=== PATIENT | female | born 1945 | race Caucasian/White ===

== ENCOUNTER 2016-07-04 02:46 | Inpatient (IN) | payer MEDICARE, OTHER ==
[~2016-07-04] VITALS: Ht 157.5 cm; Wt 92.8 kg
[~2016-07-04 02:46] MED LIST: ACLI400A2 INH; ALBU8.5H3 INH; ALBU8.5H5 INH; AMLO10TA2 PO; ASCO-96 PO; ASPI-621 PO; ASPI-650 PO; ATEN-104 PO; ATOR40TA78 PO; AZIT500T PO; AZIT500T77 PO; BIFI4CAP PO; CARV12.543 PO; CEFD300C37 PO; CHOL400C11 PO; CIME200T4 PO; CLOP75TA22 PO; DIAZ5TAB PO; DIPH1TAB PO; FELO5TAB PO; FERR325T20 PO; FLUT1DIS3 INH; FURO-93 PO; IPRA3AMP NPPB; NITR0.4T SL; OXYGEN; OXYGEN INH; PARO10TA3 PO; POTA20TA14 PO; PRED10TA PO; PRED20TA PO; SIMV20TA PO; SIMV40TA PO; TERA2CAP3 PO; VITA400C40 PO
[2016-07-04 03:19] LABS: ASPARTATE AMINO TRANSFERASE 11 U/L (15-37); BLOOD UREA NITROGEN 21 mg/dL (7-18)
[2016-07-04 03:29] LABS: IS PT STATUS REG ER OR PRE ER? YES
[2016-07-04 03:41] LABS: ABG COLLECTION SITE RIGHT BRACHIAL
[2016-07-04] MEDS: PROPOFOL 100 ML IV PRN ×4 (04:17→21:26)
[2016-07-04] MEDS ORDERED: MIDAZOLAM 1 MG/ML, 5ML ONE (04:30)
[2016-07-04] MEDS ORDERED: PROPOFOL 10 MG/ML, 20ML ONE (04:30)
[2016-07-04] MEDS ORDERED: ETOMIDATE 40 MG/20 ML ONE (04:30)
[2016-07-04] MEDS ORDERED: MIDAZOLAM 1 MG/ML, 5ML IVPush ONE (04:30)
[2016-07-04] MEDS ORDERED: SUCCINYLCHOLINE 20 MG/ML, 10ML ONE (04:30)
[2016-07-04] MEDS ORDERED: VECURONIUM 10 MG ONE (04:30)
[2016-07-04] MEDS ORDERED: ONDANSETRON 2MG/ML, 2ML IVPush PRN ×2 (04:30→05:30)
[2016-07-04] MEDS ORDERED: PROPOFOL 100 ML IV PRN (04:58)
[2016-07-04] MEDS ORDERED: DEXTROSE 4 GM TAB.CHEW PO PRN (05:00)
[2016-07-04] MEDS ORDERED: LIDOCAINE-MPF 1%, 2ML ENDO PRN (05:00)
[2016-07-04] MEDS ORDERED: SENNA/DOCUSATE TABLET NG PRN (05:00)
[2016-07-04] MEDS ORDERED: PHARMACY MAY ADJ FOR RENAL FX MC SCH (05:00)
[2016-07-04] MEDS: ALBUTEROL/IPRATROPIUM 2.5MG/0.5MG, 3 ML INLINE SCH ×5 (05:00→21:00)
[2016-07-04] MEDS: FAMOTIDINE 20 MG/2 ML IV SCH ×2 (05:00→17:25)
[2016-07-04] MEDS ORDERED: GLUCAGON 1 MG IM PRN (05:00)
[2016-07-04] MEDS ORDERED: DEXTROSE 50%, 50ML SYRINGE IVPush PRN (05:00)
[2016-07-04] MEDS ORDERED: ENOXAPARIN 40 MG/0.4 ML SQ SCH (05:00)
[2016-07-04] MEDS ORDERED: SENNOSIDES 8.8 MG/5 ML ORAL SOL NG PRN (05:00)
[2016-07-04] MEDS ORDERED: FENTANYL PF 100 MCG/2ML IVPush PRN (05:00)
[2016-07-04] MEDS ORDERED: LACTULOSE 20 GM/30 ML UDC NG PRN (05:00)
[2016-07-04] MEDS ORDERED: BISACODYL 10 MG SUPP PR PRN ×2 (05:00→05:30)
[2016-07-04] MEDS: HEPARIN 5,000 UNITS/ML, 1ML SQ SCH ×3 (05:30→20:34)
[2016-07-04] MEDS ORDERED: OXYcodone IR 5MG TABLET PO PRN (05:30)
[2016-07-04] MEDS ORDERED: morphine SULFATE 10 MG/ML, 1ML IVPush PRN (05:30)
[2016-07-04] MEDS ORDERED: ACETAMINOPHEN 325 MG TABLET PO PRN (05:30)
[2016-07-04] MEDS ORDERED: hydrALAzine 20 MG/ML, 1ML IVPush PRN (05:30)
[2016-07-04] MEDS: methylPREDNISolone SOD SUCC 125 MG/2 ML IVPush SCH ×4 (05:30→23:38)
[2016-07-04] MEDS ORDERED: POLYETHYLENE GLYCOL 17 GM PACKET PO PRN (05:30)
[2016-07-04] MEDS ORDERED: DOCUSATE 100 MG CAPSULE PO PRN (05:30)
[2016-07-04] MEDS ORDERED: methylPREDNISolone SOD SUCC 125 MG/2 ML ONE (05:36)
[2016-07-04] MEDS ORDERED: ENOXAPARIN 40 MG/0.4 ML ONE (05:36)
[2016-07-04] MEDS ORDERED: HEPARIN 5,000 UNITS/ML, 1ML ONE (05:36)
[2016-07-04] MEDS ORDERED: FAMOTIDINE 20 MG/2 ML ONE (05:37)
[2016-07-04] MEDS ORDERED: hydrALAzine 20 MG/ML, 1ML ONE (06:17)
[2016-07-04] MEDS ORDERED: PROPOFOL 100 ML IV ONE (06:25)
[2016-07-04] MEDS ORDERED: ALBUTEROL/IPRATROPIUM 2.5MG/0.5MG, 3 ML ONE (06:28)
[2016-07-04] MEDS: INSULIN ASPART 100 UNITS/ML, PEN SQ-INSULIN SCH ×4 (08:37→20:34)
[2016-07-04] MEDS: hydrALAzine 20 MG/ML, 1ML IV PRN ×2 (08:37→12:10)
[2016-07-04] MEDS: FUROSEMIDE 20 MG/2 ML IV SCH (08:37)
[2016-07-04] MEDS: SODIUM CHLORIDE FLUSH 10ML SYR IVF SCH ×2 (08:38→20:34)
[2016-07-04] MEDS: CLOPIDOGREL 75 MG TABLET PO SCH (08:47)
[2016-07-04] MEDS: TERAZOSIN 2MG CAPSULE PO SCH (08:47)
[2016-07-04] MEDS: CARVEDILOL 12.5 MG TABLET PO SCH ×2 (08:47→17:25)
[2016-07-04] MEDS: FERROUS SULFATE 325 MG TABLET PO SCH ×2 (08:47→20:34)
[2016-07-04] MEDS: AMLODIPINE 5 MG TABLET PO SCH (08:47)
[2016-07-04] MEDS ORDERED: FAMOTIDINE 20 MG/2 ML IVPush SCH (09:00)
[2016-07-04] MEDS ORDERED: LABETALOL 5MG/ML, 20ML IVPush PRN (09:30)
[2016-07-04] MEDS: CHOLECALCIFEROL 400 UNITS TABLET PO SCH (11:04)
[2016-07-04] MEDS ORDERED: CARVEDILOL 12.5 MG TABLET PO SCH (18:00)
[2016-07-04] MEDS: ATORVASTATIN 40 MG TABLET PO SCH (20:34)
[2016-07-05] MEDS: ALBUTEROL/IPRATROPIUM 2.5MG/0.5MG, 3 ML INLINE SCH ×6 (01:00→22:00)
[2016-07-05] MEDS: PROPOFOL 100 ML IV PRN ×2 (01:23→05:41)
[2016-07-05 04:24] VITALS: BP 162/78
[2016-07-05 04:28] LABS: ABG COLLECTION SITE RIGHT RADIAL; COLLATERAL CIRCULATION TESTING NORMAL
[2016-07-05 04:41] LABS: ASPARTATE AMINO TRANSFERASE 17 U/L (15-37); BLOOD UREA NITROGEN 24 mg/dL (7-18)
[2016-07-05] MEDS: methylPREDNISolone SOD SUCC 125 MG/2 ML IVPush SCH ×3 (05:00→16:59)
[2016-07-05] MEDS: FAMOTIDINE 20 MG/2 ML IV SCH (05:00)
[2016-07-05] MEDS: HEPARIN 5,000 UNITS/ML, 1ML SQ SCH ×3 (05:01→20:18)
[2016-07-05] MEDS ORDERED: ASPIRIN 81 MG TABLET EC PO SCH (06:00)
[2016-07-05] MEDS: CARVEDILOL 12.5 MG TABLET PO SCH (06:24)
[2016-07-05 06:30] LABS: DIFF TOTAL CELLS COUNTED 100 CELL DIFF
[2016-07-05 06:45] LABS: ANISOCYTOSIS 2+; HYPOCHROMIA 1+; MICROCYTOSIS 1+
[2016-07-05 06:46] LABS: OVALOCYTES 1+; VERIFY COUNTS? YES
[2016-07-05] MEDS: FUROSEMIDE 20 MG/2 ML IV SCH (07:54)
[2016-07-05] MEDS: AMLODIPINE 5 MG TABLET PO SCH (08:05)
[2016-07-05] MEDS: TERAZOSIN 2MG CAPSULE PO SCH (08:05)
[2016-07-05] MEDS: FERROUS SULFATE 325 MG TABLET PO SCH ×2 (08:05→20:18)
[2016-07-05] MEDS: SODIUM CHLORIDE FLUSH 10ML SYR IVF SCH ×2 (08:06→20:18)
[2016-07-05] MEDS: CLOPIDOGREL 75 MG TABLET PO SCH (08:06)
[2016-07-05] MEDS: CHOLECALCIFEROL 400 UNITS TABLET PO SCH (08:06)
[2016-07-05] MEDS: INSULIN ASPART 100 UNITS/ML, PEN SQ-INSULIN SCH ×4 (08:26→20:17)
[2016-07-05] MEDS ORDERED: ALBUTEROL/IPRATROPIUM 2.5MG/0.5MG, 3 ML NPPB PRN (11:30)
[2016-07-05] MEDS: CARVEDILOL 25 MG TABLET PO SCH (16:59)
[2016-07-05] MEDS: ATORVASTATIN 40 MG TABLET PO SCH (20:18)
[2016-07-05] MEDS: hydrALAzine 20 MG/ML, 1ML IV PRN (21:08)
[2016-07-06] MEDS: methylPREDNISolone SOD SUCC 125 MG/2 ML IVPush SCH ×5 (00:19→22:44)
[2016-07-06] MEDS: ALBUTEROL/IPRATROPIUM 2.5MG/0.5MG, 3 ML INLINE SCH ×2 (02:00→06:00)
[2016-07-06 04:30] VITALS: BP 159/61
[2016-07-06 04:57] LABS: ABG COLLECTION SITE RIGHT RADIAL; COLLATERAL CIRCULATION TESTING NORMAL
[2016-07-06 05:06] LABS: BLOOD UREA NITROGEN 34 mg/dL (7-18)
[2016-07-06] MEDS: ASPIRIN 81 MG TABLET CHEW PO SCH (05:12)
[2016-07-06] MEDS: HEPARIN 5,000 UNITS/ML, 1ML SQ SCH ×3 (05:12→20:51)
[2016-07-06] MEDS: CARVEDILOL 25 MG TABLET PO SCH ×2 (05:12→17:34)
[2016-07-06 05:35] LABS: DIFF TOTAL CELLS COUNTED 100 CELL DIFF
[2016-07-06] MEDS: hydrALAzine 20 MG/ML, 1ML IV PRN (05:38)
[2016-07-06 05:39] LABS: ANISOCYTOSIS 1+; HYPOCHROMIA 1+; POLYCHROMASIA 1+; VERIFY COUNTS? YES
[2016-07-06 05:40] LABS: OVALOCYTES 1+
[2016-07-06] MEDS: INSULIN ASPART 100 UNITS/ML, PEN SQ-INSULIN SCH ×4 (07:00→20:52)
[2016-07-06] MEDS: AMLODIPINE 5 MG TABLET PO SCH (08:57)
[2016-07-06] MEDS: FUROSEMIDE 20 MG/2 ML IV SCH (08:57)
[2016-07-06] MEDS: CHOLECALCIFEROL 400 UNITS TABLET PO SCH (08:57)
[2016-07-06] MEDS: TERAZOSIN 2MG CAPSULE PO SCH (08:57)
[2016-07-06] MEDS: CLOPIDOGREL 75 MG TABLET PO SCH (08:57)
[2016-07-06] MEDS: FERROUS SULFATE 325 MG TABLET PO SCH ×2 (08:57→20:51)
[2016-07-06] MEDS: SODIUM CHLORIDE FLUSH 10ML SYR IVF SCH ×2 (09:05→20:51)
[2016-07-06] MEDS: ALBUTEROL/IPRATROPIUM 2.5MG/0.5MG, 3 ML NPPB SCH ×3 (10:20→20:20)
[2016-07-06] MEDS: WINE PO SCH ×2 (12:27→18:24)
[2016-07-06 12:30] VITALS: BP 179/72
[2016-07-06 20:06] VITALS: BP 159/71
[2016-07-06] MEDS: ATORVASTATIN 40 MG TABLET PO SCH (20:51)
[2016-07-07 01:23] VITALS: BP 164/72
[2016-07-07] MEDS: CARVEDILOL 25 MG TABLET PO SCH ×2 (05:05→16:54)
[2016-07-07] MEDS: ASPIRIN 81 MG TABLET CHEW PO SCH (05:05)
[2016-07-07] MEDS: methylPREDNISolone SOD SUCC 125 MG/2 ML IVPush SCH ×3 (05:06→15:56)
[2016-07-07] MEDS: HEPARIN 5,000 UNITS/ML, 1ML SQ SCH ×3 (05:06→21:42)
[2016-07-07 05:15] LABS: BLOOD UREA NITROGEN 46 mg/dL (7-18)
[2016-07-07 05:43] LABS: DIFF TOTAL CELLS COUNTED 100 CELL DIFF
[2016-07-07 05:46] LABS: ANISOCYTOSIS 1+; VERIFY COUNTS? YES
[2016-07-07 05:47] LABS: OVALOCYTES 1+; POLYCHROMASIA 1+
[2016-07-07] MEDS: INSULIN ASPART 100 UNITS/ML, PEN SQ-INSULIN SCH ×4 (07:00→21:00)
[2016-07-07] MEDS: ALBUTEROL/IPRATROPIUM 2.5MG/0.5MG, 3 ML NPPB SCH ×2 (07:21→19:36)
[2016-07-07 07:35] VITALS: BP 167/71
[2016-07-07] MEDS: WINE PO SCH ×3 (08:00→16:54)
[2016-07-07] MEDS: CHOLECALCIFEROL 400 UNITS TABLET PO SCH (08:54)
[2016-07-07] MEDS: TERAZOSIN 2MG CAPSULE PO SCH (08:54)
[2016-07-07] MEDS: CLOPIDOGREL 75 MG TABLET PO SCH (08:54)
[2016-07-07] MEDS: AMLODIPINE 5 MG TABLET PO SCH (08:54)
[2016-07-07] MEDS: SODIUM CHLORIDE FLUSH 10ML SYR IVF SCH ×2 (08:55→21:41)
[2016-07-07] MEDS: FERROUS SULFATE 325 MG TABLET PO SCH ×2 (08:55→21:43)
[2016-07-07] MEDS: FUROSEMIDE 20 MG/2 ML IV SCH (08:55)
[2016-07-07 09:31] LABS: PATH.CAST-FLAG NOT PRESENT; SPERM-FLAG NOT PRESENT; SRC-FLAG NOT PRESENT; XTAL-FLAG NOT PRESENT; YLC-FLAG NOT PRESENT
[2016-07-07 12:46] VITALS: BP 150/72
[2016-07-07 20:02] VITALS: BP 186/71
[2016-07-07] MEDS: hydrALAzine 20 MG/ML, 1ML IV PRN (21:42)
[2016-07-07] MEDS: ATORVASTATIN 40 MG TABLET PO SCH (21:43)
[2016-07-08] VITALS (12 sets, daily range): BP systolic 159–186; BP diastolic 66–83
[2016-07-08] MEDS: methylPREDNISolone SOD SUCC 125 MG/2 ML IVPush SCH ×4 (00:25→18:20)
[2016-07-08 04:45] LABS: BLOOD UREA NITROGEN 49 mg/dL (7-18)
[2016-07-08 05:09] LABS: DIFF TOTAL CELLS COUNTED 100 CELL DIFF
[2016-07-08 05:12] LABS: ANISOCYTOSIS 1+; HYPOCHROMIA 1+; OVALOCYTES 1+; POLYCHROMASIA 1+; VERIFY COUNTS? YES
[2016-07-08 05:13] LABS: LARGE PLATELETS 1+
[2016-07-08] MEDS: HEPARIN 5,000 UNITS/ML, 1ML SQ SCH ×3 (06:00→21:22)
[2016-07-08] MEDS: CARVEDILOL 25 MG TABLET PO SCH ×2 (06:00→18:20)
[2016-07-08] MEDS: ASPIRIN 81 MG TABLET CHEW PO SCH (06:00)
[2016-07-08] MEDS: INSULIN ASPART 100 UNITS/ML, PEN SQ-INSULIN SCH ×4 (07:34→21:30)
[2016-07-08] MEDS: ALBUTEROL/IPRATROPIUM 2.5MG/0.5MG, 3 ML NPPB SCH ×4 (07:35→20:00)
[2016-07-08] MEDS: FUROSEMIDE 20 MG/2 ML IV SCH (09:34)
[2016-07-08] MEDS: SODIUM CHLORIDE FLUSH 10ML SYR IVF SCH ×2 (09:34→20:33)
[2016-07-08] MEDS: AMLODIPINE 5 MG TABLET PO SCH (09:34)
[2016-07-08] MEDS: FERROUS SULFATE 325 MG TABLET PO SCH ×2 (09:34→21:23)
[2016-07-08] MEDS: CHOLECALCIFEROL 400 UNITS TABLET PO SCH (09:35)
[2016-07-08] MEDS: TERAZOSIN 2MG CAPSULE PO SCH (09:35)
[2016-07-08] MEDS: CLOPIDOGREL 75 MG TABLET PO SCH (09:35)
[2016-07-08] MEDS: LOSARTAN 50MG TABLET PO SCH (11:31)
[2016-07-08] MEDS: WINE PO SCH ×2 (14:21→18:15)
[2016-07-08] MEDS ORDERED: ACETAMINOPHEN 325 MG TABLET PO ONE (15:00)
[2016-07-08] MEDS: hydrALAzine 20 MG/ML, 1ML IV PRN (20:29)
[2016-07-08] MEDS: ATORVASTATIN 40 MG TABLET PO SCH (21:51)
[2016-07-09] VITALS (7 sets, daily range): BP systolic 156–187; BP diastolic 71–77
[2016-07-09] MEDS: methylPREDNISolone SOD SUCC 125 MG/2 ML IVPush SCH ×5 (01:07→21:37)
[2016-07-09] MEDS: SENNA/DOCUSATE TABLET PO SCH ×2 (01:08→09:38)
[2016-07-09] MEDS: hydrALAzine 20 MG/ML, 1ML IV PRN (03:36)
[2016-07-09 05:08] LABS: BLOOD UREA NITROGEN 53 mg/dL (7-18)
[2016-07-09] MEDS: ASPIRIN 81 MG TABLET CHEW PO SCH (06:12)
[2016-07-09] MEDS: CARVEDILOL 25 MG TABLET PO SCH ×2 (06:12→17:22)
[2016-07-09] MEDS: HEPARIN 5,000 UNITS/ML, 1ML SQ SCH ×3 (06:21→21:37)
[2016-07-09] MEDS: INSULIN ASPART 100 UNITS/ML, PEN SQ-INSULIN SCH ×4 (07:00→20:35)
[2016-07-09] MEDS: ALBUTEROL/IPRATROPIUM 2.5MG/0.5MG, 3 ML NPPB SCH ×4 (07:00→18:32)
[2016-07-09] MEDS: SODIUM CHLORIDE FLUSH 10ML SYR IVF SCH ×2 (09:00→21:37)
[2016-07-09] MEDS: LOSARTAN 50MG TABLET PO SCH ×2 (09:36→20:34)
[2016-07-09] MEDS: AMLODIPINE 5 MG TABLET PO SCH (09:37)
[2016-07-09] MEDS: TERAZOSIN 2MG CAPSULE PO SCH (09:37)
[2016-07-09] MEDS: CLOPIDOGREL 75 MG TABLET PO SCH (09:37)
[2016-07-09] MEDS: FERROUS SULFATE 325 MG TABLET PO SCH ×2 (09:38→20:34)
[2016-07-09] MEDS: CHOLECALCIFEROL 400 UNITS TABLET PO SCH (09:38)
[2016-07-09] MEDS: FUROSEMIDE 20 MG/2 ML IV SCH (09:38)
[2016-07-09] MEDS: WINE PO SCH ×2 (11:59→17:22)
[2016-07-09] MEDS ORDERED: MAGNESIUM CITRATE 300ML ORAL SOL PO ONE (17:30)
[2016-07-09] MEDS: ATORVASTATIN 40 MG TABLET PO SCH (20:34)
[2016-07-09 22:35] LABS: OCCBLD OBC PASS
[2016-07-10 01:19] VITALS: BP 168/71
[2016-07-10] MEDS: methylPREDNISolone SOD SUCC 125 MG/2 ML IVPush SCH ×2 (05:36→11:19)
[2016-07-10] MEDS: CARVEDILOL 25 MG TABLET PO SCH (05:36)
[2016-07-10] MEDS: HEPARIN 5,000 UNITS/ML, 1ML SQ SCH ×2 (05:36→13:21)
[2016-07-10] MEDS: ASPIRIN 81 MG TABLET CHEW PO SCH (05:36)
[2016-07-10 05:52] LABS: BLOOD UREA NITROGEN 63 mg/dL (7-18)
[2016-07-10] MEDS: ALBUTEROL/IPRATROPIUM 2.5MG/0.5MG, 3 ML NPPB SCH ×3 (07:00→15:00)
[2016-07-10 07:40] VITALS: BP 165/69
[2016-07-10] MEDS: INSULIN ASPART 100 UNITS/ML, PEN SQ-INSULIN SCH ×2 (08:22→11:23)
[2016-07-10] MEDS: SODIUM CHLORIDE FLUSH 10ML SYR IVF SCH (08:22)
[2016-07-10] MEDS: AMLODIPINE 5 MG TABLET PO SCH (08:22)
[2016-07-10] MEDS: CLOPIDOGREL 75 MG TABLET PO SCH (08:23)
[2016-07-10] MEDS: LOSARTAN 50MG TABLET PO SCH (08:23)
[2016-07-10] MEDS: CHOLECALCIFEROL 400 UNITS TABLET PO SCH (08:23)
[2016-07-10] MEDS: TERAZOSIN 2MG CAPSULE PO SCH (08:23)
[2016-07-10] MEDS: FERROUS SULFATE 325 MG TABLET PO SCH (08:23)
[2016-07-10] MEDS: SENNA/DOCUSATE TABLET PO SCH (08:24)
[2016-07-10] MEDS ORDERED: FUROSEMIDE 20 MG TABLET PO SCH (09:00)
[2016-07-10] MEDS: WINE PO SCH (11:24)
[2016-07-10] MEDS ORDERED: LOSA50TA2 PO (12:08)
[2016-07-10] MEDS ORDERED: IPRA3AMP NPPB (12:08)
[2016-07-10] MEDS ORDERED: CARV25TA12 PO (12:08)
[2016-07-10] MEDS ORDERED: DOCU-30 PO (12:08)
[2016-07-10] MEDS ORDERED: AMLO5TAB2 PO (12:08)
[2016-07-10] MEDS ORDERED: PRED5TAB PO (12:08)
[2016-07-10] MEDS ORDERED: FURO-93 PO (12:08)
[2016-07-10 16:23] VITALS: BP 178/75
[2016-07-10 16:30] VITALS: BP 162/78
== END 2016-07-10 16:01 | disposition home or self-care (01) | DRG 291 ==
LOC: ED 03:01 → EDIP 04:22 → CCU 08:14 → 3NW 07-06 12:45
PROVIDERS: ADMIT Internal Medicine; ATTEND Internal Medicine
PROC: 0T9B70Z Drainage of Bladder with Drainage Device, Via Natural or Artificial Opening (ICD-10-PCS; principal; 2016-07-04)
PROC: 0BH17EZ Insertion of Endotracheal Airway into Trachea, Via Natural or Artificial Opening (ICD-10-PCS; 2016-07-04)
PROC: 5A09357 Assistance with Respiratory Ventilation, Less than 24 Consecutive Hours, Continuous Positive Airway Pressure (ICD-10-PCS; 2016-07-04)
PROC: 5A1945Z Respiratory Ventilation, 24-96 Consecutive Hours (ICD-10-PCS; 2016-07-04)
PROC: 30233N1 Transfusion of Nonautologous Red Blood Cells into Peripheral Vein, Percutaneous Approach (ICD-10-PCS; 2016-07-08)
DX: I11.0 Hypertensive heart disease with heart failure (principal); J96.21 Acute and chronic respiratory failure with hypoxia; N17.0 Acute kidney failure with tubular necrosis; E44.0 Moderate protein-calorie malnutrition; J44.1 Chronic obstructive pulmonary disease with (acute) exacerbation; I16.9 Hypertensive crisis, unspecified; J98.11 Atelectasis; I50.33 Acute on chronic diastolic (congestive) heart failure; I73.9 Peripheral vascular disease, unspecified; I25.2 Old myocardial infarction; I25.10 Atherosclerotic heart disease of native coronary artery without angina pectoris; D50.9 Iron deficiency anemia, unspecified; E66.9 Obesity, unspecified; E78.5 Hyperlipidemia, unspecified; Z68.37 Body mass index [BMI] 37.0-37.9, adult; F17.210 Nicotine dependence, cigarettes, uncomplicated; F32.9 Major depressive disorder, single episode, unspecified; F41.9 Anxiety disorder, unspecified; G47.33 Obstructive sleep apnea (adult) (pediatric); G89.29 Other chronic pain; I71.4 Abdominal aortic aneurysm, without rupture; Z51.5 Encounter for palliative care; Z80.1 Family history of malignant neoplasm of trachea, bronchus and lung; Z86.73 Personal history of transient ischemic attack (TIA), and cerebral infarction without residual deficits; Z99.81 Dependence on supplemental oxygen
CPT/HCPCS: 31500; 36415; 36600; 71010; 80048; 80053; 80061; 81001; 82272; 82728; 82803; 82962; 83036; 83540; 83550; 83605; 83735; 83880; 84145; 84439; 84443; 84478; 84484; 85025; 86850; 86900; 86923; 87040; 87070; 87081; 87086; 87205; 93005; 93306; 94002; 94003; 94640; 96372; 96374; 96375; J1644; J1650; J1815; J2250; J2405; J2704; J7620; J0330; J0360; J1940; J2930; J7050; P9016; S0028

== ENCOUNTER 2016-08-20 05:52 | Inpatient (IN) | payer MEDICARE, OTHER ==
[~2016-08-20] VITALS: Ht 160 cm; Wt 90.9 kg
[~2016-08-20 05:52] MED LIST changes: +AMLO5TAB2 PO; +CARV25TA12 PO; +DOCU-30 PO; +LOSA50TA2 PO; +PRED5TAB PO; -VITA400C40 PO; +VITA400C43 PO
[2016-08-20] MEDS ORDERED: SODIUM CHLORIDE FLUSH 10ML SYR IVF ONE (06:00)
[2016-08-20] MEDS ORDERED: hydrALAzine 20 MG/ML, 1ML ONE ×2 (06:06→07:43)
[2016-08-20] MEDS ORDERED: CIME200T4 PO (06:26)
[2016-08-20] MEDS ORDERED: CARV12.543 PO (06:26)
[2016-08-20] MEDS ORDERED: DIAZ5TAB PO (06:26)
[2016-08-20] MEDS ORDERED: POTA20PA PO (06:26)
[2016-08-20] MEDS ORDERED: FLUT1DIS3 INH (06:26)
[2016-08-20] MEDS ORDERED: ACLI400A2 INH (06:26)
[2016-08-20] MEDS ORDERED: AMLO5TAB2 PO (06:26)
[2016-08-20] MEDS ORDERED: hydrALAzine 20 MG/ML, 1ML IV ONE ×2 (06:30→08:00)
[2016-08-20 06:43] LABS: ABG COLLECTION SITE LEFT RADIAL; COLLATERAL CIRCULATION TESTING NORMAL
[2016-08-20 06:45] LABS: BLOOD UREA NITROGEN 12 mg/dL (7-18)
[2016-08-20 06:50] LABS: ASPARTATE AMINO TRANSFERASE 11 U/L (15-37)
[2016-08-20 06:52] LABS: IS PT STATUS REG ER OR PRE ER? YES
[2016-08-20 08:23] LABS: DIFF TOTAL CELLS COUNTED 100 CELL DIFF
[2016-08-20 08:25] LABS: VERIFY COUNTS? YES
[2016-08-20 08:26] LABS: ANISOCYTOSIS 1+; POLYCHROMASIA 1+
[2016-08-20 09:02] LABS: ABG COLLECTION SITE LEFT RADIAL; COLLATERAL CIRCULATION TESTING NORMAL
[2016-08-20 09:03] LABS: FIO2 45 %
[2016-08-20 09:39] VITALS: BP 169/79
[2016-08-20] MEDS: ALBUTEROL/IPRATROPIUM 2.5MG/0.5MG, 3 ML NPPB SCH ×4 (09:45→22:00)
[2016-08-20] MEDS ORDERED: DIAZEPAM 5 MG TABLET PO SCH (10:30)
[2016-08-20] MEDS ORDERED: GUAIFENESIN/DM 200-20MG, 10ML UDC PO PRN (10:30)
[2016-08-20] MEDS ORDERED: DOCUSATE 100 MG CAPSULE PO PRN ×2 (10:30)
[2016-08-20] MEDS ORDERED: POLYETHYLENE GLYCOL 17 GM PACKET PO PRN (10:30)
[2016-08-20] MEDS ORDERED: ONDANSETRON 2MG/ML, 2ML IVPush PRN (10:30)
[2016-08-20] MEDS ORDERED: NITROGLYCERIN 0.4 MG BOTTLE (25 TABS) SL PRN (10:30)
[2016-08-20] MEDS ORDERED: ENALAPRILAT 1.25 MG/ML, 2ML IVPush PRN (10:30)
[2016-08-20] MEDS ORDERED: BISACODYL 10 MG SUPP PR PRN (10:30)
[2016-08-20] MEDS ORDERED: ONDANSETRON ODT 4 MG PO PRN (10:30)
[2016-08-20] MEDS ORDERED: ACETAMINOPHEN 325 MG TABLET PO PRN (10:30)
[2016-08-20] MEDS ORDERED: ALBUTEROL/IPRATROPIUM 2.5MG/0.5MG, 3 ML NPPB PRN (10:30)
[2016-08-20] MEDS: NICOTINE 7 MG/24 HR PATCH.TD24 TD SCH (10:30)
[2016-08-20] MEDS: ENOXAPARIN 40 MG/0.4 ML SQ SCH (11:57)
[2016-08-20] MEDS ORDERED: WINE PO SCH (12:00)
[2016-08-20] MEDS ORDERED: hydrALAzine 20 MG/ML, 1ML IV PRN (12:00)
[2016-08-20] MEDS: WINE PO SCH ×2 (12:07→17:52)
[2016-08-20] MEDS ORDERED: ASCO500T8 PO (12:23)
[2016-08-20] MEDS ORDERED: VITA400C9 PO (12:23)
[2016-08-20] MEDS ORDERED: DIPH1TAB PO ×2 (12:32)
[2016-08-20] MEDS ORDERED: POTA8CAP PO (12:32)
[2016-08-20] MEDS ORDERED: methylPREDNISolone SOD SUCC 125 MG/2 ML IVPush SCH (16:30)
[2016-08-20] MEDS ORDERED: methylPREDNISolone SOD SUCC 125 MG/2 ML IVPush ONE (17:00)
[2016-08-20] MEDS ORDERED: FILTER 0.22 MICRON IV PRN (20:30)
[2016-08-20] MEDS ORDERED: AMIODARONE 900 MG in DEXTROSE 5% 482 ML IV PRN (20:30)
[2016-08-20] MEDS ORDERED: AMIODARONE 150 MG in DEXTROSE 5% 100 ML IV ONE (20:30)
[2016-08-20 20:36] VITALS: BP 102/67
[2016-08-20] MEDS ORDERED: IPRATROPIUM 0.5 MG/2.5 ML INHA HHN SCH (21:00)
[2016-08-20] MEDS: FLUTICASONE/VILANTEROL 100-25MCG/INH INH SCH (22:32)
[2016-08-20] MEDS: CARVEDILOL 12.5 MG TABLET PO SCH (22:32)
[2016-08-20] MEDS: FERROUS SULFATE 325 MG TABLET PO SCH (22:33)
[2016-08-20] MEDS: DIPHENOXYLATE/ATROPINE TABLET PO SCH (22:33)
[2016-08-20] MEDS: LOSARTAN 50MG TABLET PO SCH (22:33)
[2016-08-20] MEDS: ATORVASTATIN 40 MG TABLET PO SCH (22:33)
[2016-08-21 02:38] VITALS: BP 131/81
[2016-08-21 05:32] LABS: BLOOD UREA NITROGEN 20 mg/dL (7-18)
[2016-08-21] MEDS: ASPIRIN 81 MG TABLET EC PO SCH (06:04)
[2016-08-21 06:19] LABS: ANISOCYTOSIS 1+; POLYCHROMASIA 1+
[2016-08-21 07:00] VITALS: BP 162/90
[2016-08-21] MEDS: ALBUTEROL/IPRATROPIUM 2.5MG/0.5MG, 3 ML NPPB SCH ×5 (07:00→22:00)
[2016-08-21] MEDS ORDERED: FUROSEMIDE 40 MG/4 ML IV ONE (07:00)
[2016-08-21] MEDS: FUROSEMIDE 20 MG TABLET PO SCH (09:00)
[2016-08-21] MEDS ORDERED: CIMETIDINE 400 MG TABLET PO SCH ×2 (09:00→21:00)
[2016-08-21] MEDS ORDERED: POTASSIUM CHLORIDE 20 MEQ PACKET PO SCH (09:00)
[2016-08-21] MEDS: LOSARTAN 50MG TABLET PO SCH (09:00)
[2016-08-21] MEDS: FLUTICASONE/VILANTEROL 100-25MCG/INH INH SCH (09:00)
[2016-08-21] MEDS: NICOTINE 7 MG/24 HR PATCH.TD24 TD SCH (10:30)
[2016-08-21] MEDS: AMLODIPINE 5 MG TABLET PO SCH (10:37)
[2016-08-21] MEDS: VITAMIN E 400 UNITS CAPSULE PO SCH (10:37)
[2016-08-21] MEDS: DIPHENOXYLATE/ATROPINE TABLET PO SCH ×2 (10:37→20:49)
[2016-08-21] MEDS: ASCORBIC ACID 500 MG TABLET PO SCH (10:37)
[2016-08-21] MEDS: FERROUS SULFATE 325 MG TABLET PO SCH ×2 (10:38→20:47)
[2016-08-21] MEDS: PAROXETINE 10 MG TABLET PO SCH (10:38)
[2016-08-21] MEDS: POTASSIUM CHLORIDE 8 MEQ TABLET.ER PO SCH (10:38)
[2016-08-21] MEDS: CARVEDILOL 12.5 MG TABLET PO SCH ×2 (10:38→20:49)
[2016-08-21] MEDS: AMIODARONE 200 MG TABLET PO SCH (10:38)
[2016-08-21] MEDS: CLOPIDOGREL 75 MG TABLET PO SCH (10:38)
[2016-08-21 12:07] VITALS: BP 160/78
[2016-08-21] MEDS: TERAZOSIN 2MG CAPSULE PO SCH (12:08)
[2016-08-21] MEDS: FLUTICASONE PROPIONATE HOMEINH SCH ×2 (12:09→20:47)
[2016-08-21] MEDS: SALMETEROL HOMEINH SCH ×2 (12:09→20:47)
[2016-08-21] MEDS: TUDORZA PRESSAIR 400 MCG INH SCH ×2 (12:10→20:47)
[2016-08-21] MEDS: ENOXAPARIN 40 MG/0.4 ML SQ SCH (12:13)
[2016-08-21 12:52] VITALS: BP 150/82
[2016-08-21] MEDS: WINE PO SCH ×2 (13:10→18:01)
[2016-08-21 20:45] VITALS: BP 160/72
[2016-08-21] MEDS: CIMETIDINE 200 MG TABLET PO SCH (20:49)
[2016-08-21] MEDS: ATORVASTATIN 40 MG TABLET PO SCH (20:49)
[2016-08-22 01:35] VITALS: BP 145/77
[2016-08-22] MEDS: GUAIFENESIN/DM 200-20MG, 10ML UDC PO PRN ×2 (04:28→23:06)
[2016-08-22 05:46] LABS: BLOOD UREA NITROGEN 37 mg/dL (7-18)
[2016-08-22 06:56] VITALS: BP 129/71
[2016-08-22] MEDS: ALBUTEROL/IPRATROPIUM 2.5MG/0.5MG, 3 ML NPPB SCH ×4 (07:25→19:38)
[2016-08-22] MEDS: ASCORBIC ACID 500 MG TABLET PO SCH (08:31)
[2016-08-22] MEDS: VITAMIN E 400 UNITS CAPSULE PO SCH (08:31)
[2016-08-22] MEDS: DIPHENOXYLATE/ATROPINE TABLET PO SCH ×2 (08:32→21:10)
[2016-08-22] MEDS: CLOPIDOGREL 75 MG TABLET PO SCH (08:32)
[2016-08-22] MEDS: PAROXETINE 10 MG TABLET PO SCH (08:32)
[2016-08-22] MEDS: FUROSEMIDE 20 MG TABLET PO SCH (08:32)
[2016-08-22] MEDS: AMLODIPINE 5 MG TABLET PO SCH (08:32)
[2016-08-22] MEDS: CARVEDILOL 12.5 MG TABLET PO SCH ×2 (08:33→21:10)
[2016-08-22] MEDS: TERAZOSIN 2MG CAPSULE PO SCH (08:33)
[2016-08-22] MEDS: FERROUS SULFATE 325 MG TABLET PO SCH ×2 (08:33→21:10)
[2016-08-22] MEDS: ASPIRIN 81 MG TABLET EC PO SCH (08:33)
[2016-08-22] MEDS: POTASSIUM CHLORIDE 8 MEQ TABLET.ER PO SCH (08:33)
[2016-08-22] MEDS: SALMETEROL HOMEINH SCH ×2 (08:34→21:00)
[2016-08-22] MEDS: FLUTICASONE PROPIONATE HOMEINH SCH ×2 (08:34→21:00)
[2016-08-22] MEDS: TUDORZA PRESSAIR 400 MCG INH SCH ×2 (08:34→21:00)
[2016-08-22] MEDS: AMIODARONE 200 MG TABLET PO SCH (08:34)
[2016-08-22] MEDS: NICOTINE 7 MG/24 HR PATCH.TD24 TD SCH (10:30)
[2016-08-22 12:20] VITALS: BP 134/75
[2016-08-22] MEDS: ENOXAPARIN 30 MG/0.3 ML SQ SCH (12:51)
[2016-08-22] MEDS: WINE PO SCH ×2 (12:52→19:36)
[2016-08-22] MEDS ORDERED: FUROSEMIDE 40 MG/4 ML IV ONE (16:00)
[2016-08-22 19:32] VITALS: BP 130/70
[2016-08-22] MEDS: CIMETIDINE 200 MG TABLET PO SCH (21:09)
[2016-08-22] MEDS: ATORVASTATIN 40 MG TABLET PO SCH (21:10)
[2016-08-23 01:49] VITALS: BP 146/72
[2016-08-23] MEDS: ALBUTEROL/IPRATROPIUM 2.5MG/0.5MG, 3 ML NPPB SCH ×5 (05:01→20:14)
[2016-08-23 05:32] LABS: BLOOD UREA NITROGEN 44 mg/dL (7-18)
[2016-08-23] MEDS: ASPIRIN 81 MG TABLET EC PO SCH (06:11)
[2016-08-23 08:17] VITALS: BP 148/79
[2016-08-23] MEDS: TUDORZA PRESSAIR 400 MCG INH SCH ×2 (09:00→20:33)
[2016-08-23] MEDS: FLUTICASONE PROPIONATE HOMEINH SCH ×2 (09:00→20:33)
[2016-08-23] MEDS: SALMETEROL HOMEINH SCH ×2 (09:00→20:33)
[2016-08-23] MEDS: NICOTINE 7 MG/24 HR PATCH.TD24 TD SCH (09:26)
[2016-08-23] MEDS: AMIODARONE 200 MG TABLET PO SCH (09:30)
[2016-08-23] MEDS: ASCORBIC ACID 500 MG TABLET PO SCH (09:31)
[2016-08-23] MEDS: PAROXETINE 10 MG TABLET PO SCH (09:31)
[2016-08-23] MEDS: VITAMIN E 400 UNITS CAPSULE PO SCH (09:31)
[2016-08-23] MEDS: CLOPIDOGREL 75 MG TABLET PO SCH (09:31)
[2016-08-23] MEDS: AMLODIPINE 5 MG TABLET PO SCH (09:32)
[2016-08-23] MEDS: TERAZOSIN 2MG CAPSULE PO SCH (09:32)
[2016-08-23] MEDS: POTASSIUM CHLORIDE 8 MEQ TABLET.ER PO SCH (09:32)
[2016-08-23] MEDS: FUROSEMIDE 20 MG TABLET PO SCH (09:32)
[2016-08-23] MEDS: CARVEDILOL 12.5 MG TABLET PO SCH ×2 (09:32→20:34)
[2016-08-23] MEDS: FERROUS SULFATE 325 MG TABLET PO SCH ×2 (09:32→20:34)
[2016-08-23] MEDS: DIPHENOXYLATE/ATROPINE TABLET PO SCH ×2 (09:32→20:34)
[2016-08-23] MEDS ORDERED: SODIUM CHLORIDE 0.9% 1,000 ML IV SCH (12:00)
[2016-08-23] MEDS: WINE PO SCH ×2 (12:51→17:58)
[2016-08-23] MEDS: ENOXAPARIN 30 MG/0.3 ML SQ SCH (12:51)
[2016-08-23] MEDS ORDERED: SODIUM CHLORIDE 0.9%, 500ML IVBOLUS ONE (14:30)
[2016-08-23 15:22] VITALS: BP 157/76
[2016-08-23 19:05] VITALS: BP 151/76
[2016-08-23] MEDS: ATORVASTATIN 40 MG TABLET PO SCH (20:34)
[2016-08-23] MEDS: CIMETIDINE 200 MG TABLET PO SCH (20:35)
[2016-08-24 00:29] LABS: PATH.CAST-FLAG NOT PRESENT; SPERM-FLAG NOT PRESENT; SRC-FLAG NOT PRESENT; XTAL-FLAG NOT PRESENT; YLC-FLAG NOT PRESENT
[2016-08-24 00:31] LABS: POTASSIUM,URINE RANDOM 23 mmol/L
[2016-08-24 01:04] VITALS: BP 166/77
[2016-08-24 01:30] VITALS: BP 159/72
[2016-08-24 04:53] LABS: BLOOD UREA NITROGEN 44 mg/dL (7-18)
[2016-08-24] MEDS: ALBUTEROL/IPRATROPIUM 2.5MG/0.5MG, 3 ML NPPB SCH ×4 (06:00→21:00)
[2016-08-24] MEDS: ASPIRIN 81 MG TABLET EC PO SCH (06:20)
[2016-08-24 07:31] VITALS: BP 131/66
[2016-08-24] MEDS: SALMETEROL HOMEINH SCH ×2 (09:00→20:18)
[2016-08-24] MEDS: TUDORZA PRESSAIR 400 MCG INH SCH ×2 (09:00→20:19)
[2016-08-24] MEDS: VITAMIN E 400 UNITS CAPSULE PO SCH (09:00)
[2016-08-24] MEDS: FLUTICASONE PROPIONATE HOMEINH SCH ×2 (09:00→20:18)
[2016-08-24] MEDS: NICOTINE 7 MG/24 HR PATCH.TD24 TD SCH (10:15)
[2016-08-24] MEDS: DIPHENOXYLATE/ATROPINE TABLET PO SCH ×2 (10:21→20:20)
[2016-08-24] MEDS: CLOPIDOGREL 75 MG TABLET PO SCH (10:21)
[2016-08-24] MEDS: PAROXETINE 10 MG TABLET PO SCH (10:21)
[2016-08-24] MEDS: ASCORBIC ACID 500 MG TABLET PO SCH (10:21)
[2016-08-24] MEDS: FERROUS SULFATE 325 MG TABLET PO SCH ×2 (10:21→20:20)
[2016-08-24] MEDS: CARVEDILOL 12.5 MG TABLET PO SCH ×2 (10:21→20:20)
[2016-08-24] MEDS: TERAZOSIN 2MG CAPSULE PO SCH (10:21)
[2016-08-24] MEDS: POTASSIUM CHLORIDE 8 MEQ TABLET.ER PO SCH (10:21)
[2016-08-24] MEDS: AMLODIPINE 5 MG TABLET PO SCH (10:21)
[2016-08-24] MEDS: AMIODARONE 200 MG TABLET PO SCH (10:22)
[2016-08-24] MEDS: ENOXAPARIN 30 MG/0.3 ML SQ SCH (11:00)
[2016-08-24] MEDS ORDERED: SODIUM CHLORIDE 0.9% 1,000 ML IV SCH (12:00)
[2016-08-24] MEDS ORDERED: SODIUM CHLORIDE 0.9%, 500ML IVBOLUS ONE (12:30)
[2016-08-24] MEDS: WINE PO SCH ×2 (13:20→17:24)
[2016-08-24 14:00] VITALS: BP 172/74
[2016-08-24 19:01] VITALS: BP 182/71
[2016-08-24] MEDS: CIMETIDINE 200 MG TABLET PO SCH (20:20)
[2016-08-24] MEDS: ATORVASTATIN 40 MG TABLET PO SCH (20:20)
[2016-08-25 02:00] VITALS: BP 165/77
[2016-08-25] MEDS: ASPIRIN 81 MG TABLET EC PO SCH (06:00)
[2016-08-25] MEDS: ALBUTEROL/IPRATROPIUM 2.5MG/0.5MG, 3 ML NPPB SCH ×4 (06:00→20:23)
[2016-08-25 06:06] LABS: BLOOD UREA NITROGEN 28 mg/dL (7-18)
[2016-08-25 08:45] VITALS: BP 151/78
[2016-08-25] MEDS: DIPHENOXYLATE/ATROPINE TABLET PO SCH ×2 (09:00→22:00)
[2016-08-25] MEDS: VITAMIN E 400 UNITS CAPSULE PO SCH (09:45)
[2016-08-25] MEDS: TERAZOSIN 2MG CAPSULE PO SCH (09:45)
[2016-08-25] MEDS: PAROXETINE 10 MG TABLET PO SCH (09:45)
[2016-08-25] MEDS: CARVEDILOL 12.5 MG TABLET PO SCH ×2 (09:45→22:00)
[2016-08-25] MEDS: FERROUS SULFATE 325 MG TABLET PO SCH ×2 (09:45→21:59)
[2016-08-25] MEDS: ASCORBIC ACID 500 MG TABLET PO SCH (09:45)
[2016-08-25] MEDS: CLOPIDOGREL 75 MG TABLET PO SCH (09:45)
[2016-08-25] MEDS: DILTIAZEM 120 MG CAP.ER.24H PO SCH (09:45)
[2016-08-25] MEDS: POTASSIUM CHLORIDE 8 MEQ TABLET.ER PO SCH (09:45)
[2016-08-25] MEDS: AMLODIPINE 5 MG TABLET PO SCH (09:45)
[2016-08-25] MEDS: FLUTICASONE PROPIONATE HOMEINH SCH ×2 (09:46→21:00)
[2016-08-25] MEDS: SALMETEROL HOMEINH SCH ×2 (09:46→21:00)
[2016-08-25] MEDS: TUDORZA PRESSAIR 400 MCG INH SCH ×2 (09:47→21:00)
[2016-08-25] MEDS: NICOTINE 7 MG/24 HR PATCH.TD24 TD SCH (09:48)
[2016-08-25] MEDS ORDERED: SODIUM CHLORIDE 0.9% 1,000 ML IV SCH (12:00)
[2016-08-25] MEDS: ENOXAPARIN 30 MG/0.3 ML SQ SCH (13:16)
[2016-08-25] MEDS: WINE PO SCH ×2 (13:23→21:59)
[2016-08-25 14:30] VITALS: BP 149/72
[2016-08-25 20:00] VITALS: BP 156/79
[2016-08-25] MEDS: CIMETIDINE 200 MG TABLET PO SCH (22:00)
[2016-08-25] MEDS: ATORVASTATIN 40 MG TABLET PO SCH (22:00)
[2016-08-26 02:00] VITALS: BP 150/73
[2016-08-26 04:02] VITALS: BP 161/77
[2016-08-26] MEDS: ASPIRIN 81 MG TABLET EC PO SCH (05:14)
[2016-08-26 05:41] LABS: BLOOD UREA NITROGEN 22 mg/dL (7-18)
[2016-08-26] MEDS: ALBUTEROL/IPRATROPIUM 2.5MG/0.5MG, 3 ML NPPB SCH ×4 (07:15→20:15)
[2016-08-26] MEDS: VITAMIN E 400 UNITS CAPSULE PO SCH (09:17)
[2016-08-26] MEDS: FERROUS SULFATE 325 MG TABLET PO SCH ×2 (09:17→20:12)
[2016-08-26] MEDS: CLOPIDOGREL 75 MG TABLET PO SCH (09:17)
[2016-08-26] MEDS: TERAZOSIN 2MG CAPSULE PO SCH (09:17)
[2016-08-26] MEDS: POTASSIUM CHLORIDE 8 MEQ TABLET.ER PO SCH (09:17)
[2016-08-26] MEDS: DILTIAZEM 120 MG CAP.ER.24H PO SCH (09:18)
[2016-08-26] MEDS: ASCORBIC ACID 500 MG TABLET PO SCH (09:18)
[2016-08-26] MEDS: AMLODIPINE 5 MG TABLET PO SCH (09:18)
[2016-08-26] MEDS: PAROXETINE 10 MG TABLET PO SCH (09:18)
[2016-08-26] MEDS: DIPHENOXYLATE/ATROPINE TABLET PO SCH ×2 (09:18→20:12)
[2016-08-26] MEDS: CARVEDILOL 12.5 MG TABLET PO SCH ×2 (09:18→20:12)
[2016-08-26] MEDS: TUDORZA PRESSAIR 400 MCG INH SCH ×2 (09:19→20:10)
[2016-08-26] MEDS: SALMETEROL HOMEINH SCH ×2 (09:19→20:09)
[2016-08-26] MEDS: ENOXAPARIN 30 MG/0.3 ML SQ SCH (09:19)
[2016-08-26] MEDS: FLUTICASONE PROPIONATE HOMEINH SCH ×2 (09:19→20:09)
[2016-08-26 09:46] VITALS: BP 174/91
[2016-08-26] MEDS ORDERED: FUROSEMIDE 20 MG/2 ML IV ONE (12:00)
[2016-08-26] MEDS ORDERED: ALBUMIN HUMAN 5% 250 ML IV ONE (12:00)
[2016-08-26] MEDS: WINE PO SCH ×2 (12:00→16:45)
[2016-08-26 14:29] VITALS: BP 172/74
[2016-08-26] MEDS ORDERED: hydrALAzine 20 MG/ML, 1ML ONE (14:33)
[2016-08-26] MEDS: hydrALAzine 20 MG/ML, 1ML IV PRN (14:36)
[2016-08-26 19:35] VITALS: BP 170/72
[2016-08-26] MEDS: ATORVASTATIN 40 MG TABLET PO SCH (20:12)
[2016-08-26] MEDS: CIMETIDINE 200 MG TABLET PO SCH (20:13)
[2016-08-27 02:38] VITALS: BP_SYST 195; BP_SYST 201; BP_DIAS 84; BP_DIAS 93
[2016-08-27] MEDS: hydrALAzine 20 MG/ML, 1ML IV PRN ×2 (03:03→19:45)
[2016-08-27 04:00] VITALS: BP 163/80
[2016-08-27] MEDS: ASPIRIN 81 MG TABLET EC PO SCH (06:28)
[2016-08-27] MEDS: ALBUTEROL/IPRATROPIUM 2.5MG/0.5MG, 3 ML NPPB SCH ×3 (07:55→21:15)
[2016-08-27 08:30] VITALS: BP 179/80
[2016-08-27] MEDS: TERAZOSIN 2MG CAPSULE PO SCH (09:39)
[2016-08-27] MEDS: CARVEDILOL 12.5 MG TABLET PO SCH ×2 (09:39→21:05)
[2016-08-27] MEDS: ENOXAPARIN 30 MG/0.3 ML SQ SCH (09:39)
[2016-08-27] MEDS: VITAMIN E 400 UNITS CAPSULE PO SCH (09:39)
[2016-08-27] MEDS: CLOPIDOGREL 75 MG TABLET PO SCH (09:39)
[2016-08-27] MEDS: FERROUS SULFATE 325 MG TABLET PO SCH ×2 (09:39→21:05)
[2016-08-27] MEDS: TUDORZA PRESSAIR 400 MCG INH SCH ×2 (09:40→21:00)
[2016-08-27] MEDS: POTASSIUM CHLORIDE 8 MEQ TABLET.ER PO SCH (09:40)
[2016-08-27] MEDS: FLUTICASONE PROPIONATE HOMEINH SCH ×2 (09:40→21:00)
[2016-08-27] MEDS: DIPHENOXYLATE/ATROPINE TABLET PO SCH ×2 (09:40→21:05)
[2016-08-27] MEDS: AMLODIPINE 5 MG TABLET PO SCH (09:40)
[2016-08-27] MEDS: PAROXETINE 10 MG TABLET PO SCH (09:40)
[2016-08-27] MEDS: ASCORBIC ACID 500 MG TABLET PO SCH (09:40)
[2016-08-27] MEDS: DILTIAZEM 120 MG CAP.ER.24H PO SCH (09:40)
[2016-08-27] MEDS: SALMETEROL HOMEINH SCH ×2 (09:40→21:00)
[2016-08-27 11:34] LABS: BLOOD UREA NITROGEN 17 mg/dL (7-18)
[2016-08-27 11:38] LABS: ASPARTATE AMINO TRANSFERASE 11 U/L (15-37)
[2016-08-27] MEDS ORDERED: ALBUMIN HUMAN 25% 50 ML IV ONE (12:00)
[2016-08-27] MEDS ORDERED: AcetaZOLAMIDE INJ 500 MG IVPush SCH (12:00)
[2016-08-27 13:40] VITALS: BP 175/78
[2016-08-27] MEDS: WINE PO SCH (18:31)
[2016-08-27 19:40] VITALS: BP 198/77
[2016-08-27] MEDS: CIMETIDINE 200 MG TABLET PO SCH (21:05)
[2016-08-27] MEDS: ATORVASTATIN 40 MG TABLET PO SCH (21:05)
[2016-08-28 02:35] VITALS: BP 187/82
[2016-08-28] MEDS: hydrALAzine 20 MG/ML, 1ML IV PRN (02:39)
[2016-08-28] MEDS: ALBUTEROL/IPRATROPIUM 2.5MG/0.5MG, 3 ML NPPB SCH ×4 (06:00→19:37)
[2016-08-28] MEDS: ASPIRIN 81 MG TABLET EC PO SCH (06:21)
[2016-08-28 06:44] LABS: BLOOD UREA NITROGEN 16 mg/dL (7-18)
[2016-08-28 08:17] VITALS: BP 192/76
[2016-08-28] MEDS: TERAZOSIN 2MG CAPSULE PO SCH (08:22)
[2016-08-28] MEDS: AMLODIPINE 5 MG TABLET PO SCH (08:22)
[2016-08-28] MEDS: ENOXAPARIN 30 MG/0.3 ML SQ SCH (08:22)
[2016-08-28] MEDS: POTASSIUM CHLORIDE 8 MEQ TABLET.ER PO SCH (08:22)
[2016-08-28] MEDS: ASCORBIC ACID 500 MG TABLET PO SCH (08:22)
[2016-08-28] MEDS: FERROUS SULFATE 325 MG TABLET PO SCH ×2 (08:22→21:58)
[2016-08-28] MEDS: CLOPIDOGREL 75 MG TABLET PO SCH (08:22)
[2016-08-28] MEDS: CARVEDILOL 12.5 MG TABLET PO SCH ×2 (08:22→21:57)
[2016-08-28] MEDS: DIPHENOXYLATE/ATROPINE TABLET PO SCH ×2 (08:22→21:58)
[2016-08-28] MEDS: VITAMIN E 400 UNITS CAPSULE PO SCH (08:22)
[2016-08-28] MEDS: SALMETEROL HOMEINH SCH ×2 (08:23→21:00)
[2016-08-28] MEDS: FLUTICASONE PROPIONATE HOMEINH SCH ×2 (08:23→21:00)
[2016-08-28] MEDS: DILTIAZEM 120 MG CAP.ER.24H PO SCH (08:23)
[2016-08-28] MEDS: PAROXETINE 10 MG TABLET PO SCH (08:23)
[2016-08-28] MEDS: TUDORZA PRESSAIR 400 MCG INH SCH ×2 (08:24→21:00)
[2016-08-28 08:54] VITALS: BP 160/88
[2016-08-28 12:45] LABS: ABG COLLECTION SITE LEFT RADIAL; COLLATERAL CIRCULATION TESTING NORMAL
[2016-08-28 14:30] VITALS: BP 154/71
[2016-08-28] MEDS: AcetaZOLAMIDE INJ 500 MG IVPush SCH (14:57)
[2016-08-28] MEDS: WINE PO SCH (17:47)
[2016-08-28] MEDS ORDERED: ACETAMINOPHEN 325 MG TABLET PO PRN (19:00)
[2016-08-28] MEDS ORDERED: BISACODYL 10 MG SUPP PR PRN (19:00)
[2016-08-28] MEDS ORDERED: ONDANSETRON 2MG/ML, 2ML IVPush PRN (19:00)
[2016-08-28 21:50] VITALS: BP 168/78
[2016-08-28] MEDS: CIMETIDINE 200 MG TABLET PO SCH (21:57)
[2016-08-28] MEDS: ATORVASTATIN 40 MG TABLET PO SCH (21:58)
[2016-08-29 01:50] VITALS: BP 152/75
[2016-08-29] MEDS: AcetaZOLAMIDE INJ 500 MG IVPush SCH (02:59)
[2016-08-29] MEDS: ASPIRIN 81 MG TABLET EC PO SCH (05:04)
[2016-08-29 05:26] LABS: BLOOD UREA NITROGEN 16 mg/dL (7-18)
[2016-08-29] MEDS: ALBUTEROL/IPRATROPIUM 2.5MG/0.5MG, 3 ML NPPB SCH ×4 (06:00→19:55)
[2016-08-29 07:55] VITALS: BP 160/70
[2016-08-29] MEDS: PAROXETINE 10 MG TABLET PO SCH (07:56)
[2016-08-29] MEDS: DIPHENOXYLATE/ATROPINE TABLET PO SCH ×2 (07:56→21:35)
[2016-08-29] MEDS: DILTIAZEM 120 MG CAP.ER.24H PO SCH (07:56)
[2016-08-29] MEDS: AMLODIPINE 5 MG TABLET PO SCH (07:56)
[2016-08-29] MEDS: POTASSIUM CHLORIDE 8 MEQ TABLET.ER PO SCH (07:56)
[2016-08-29] MEDS: TUDORZA PRESSAIR 400 MCG INH SCH ×2 (07:57→21:00)
[2016-08-29] MEDS: CLOPIDOGREL 75 MG TABLET PO SCH (07:57)
[2016-08-29] MEDS: CARVEDILOL 12.5 MG TABLET PO SCH ×2 (07:57→21:34)
[2016-08-29] MEDS: ENOXAPARIN 40 MG/0.4 ML SQ SCH (07:57)
[2016-08-29] MEDS: VITAMIN E 400 UNITS CAPSULE PO SCH (07:57)
[2016-08-29] MEDS: ASCORBIC ACID 500 MG TABLET PO SCH (07:57)
[2016-08-29] MEDS: FERROUS SULFATE 325 MG TABLET PO SCH ×2 (07:57→21:34)
[2016-08-29] MEDS: TERAZOSIN 2MG CAPSULE PO SCH (07:57)
[2016-08-29] MEDS: FLUTICASONE PROPIONATE HOMEINH SCH ×2 (07:57→21:00)
[2016-08-29] MEDS: SALMETEROL HOMEINH SCH ×2 (07:57→21:00)
[2016-08-29 13:45] VITALS: BP 163/72
[2016-08-29] MEDS: WINE PO SCH (17:46)
[2016-08-29 19:35] VITALS: BP 168/76
[2016-08-29] MEDS: CIMETIDINE 200 MG TABLET PO SCH (21:35)
[2016-08-29] MEDS: ATORVASTATIN 40 MG TABLET PO SCH (21:36)
[2016-08-30 01:39] VITALS: BP 147/72
[2016-08-30] MEDS: ASPIRIN 81 MG TABLET EC PO SCH (05:37)
[2016-08-30] MEDS: ALBUTEROL/IPRATROPIUM 2.5MG/0.5MG, 3 ML NPPB SCH ×4 (06:00→19:45)
[2016-08-30 06:13] LABS: BLOOD UREA NITROGEN 16 mg/dL (7-18)
[2016-08-30 07:20] VITALS: BP 176/73
[2016-08-30] MEDS: VITAMIN E 400 UNITS CAPSULE PO SCH (08:34)
[2016-08-30] MEDS: CARVEDILOL 12.5 MG TABLET PO SCH ×2 (08:34→21:49)
[2016-08-30] MEDS: CLOPIDOGREL 75 MG TABLET PO SCH (08:34)
[2016-08-30] MEDS: ENOXAPARIN 40 MG/0.4 ML SQ SCH (08:34)
[2016-08-30] MEDS: DILTIAZEM 120 MG CAP.ER.24H PO SCH (08:34)
[2016-08-30] MEDS: DIPHENOXYLATE/ATROPINE TABLET PO SCH ×2 (08:35→21:47)
[2016-08-30] MEDS: TERAZOSIN 2MG CAPSULE PO SCH (08:35)
[2016-08-30] MEDS: FERROUS SULFATE 325 MG TABLET PO SCH ×2 (08:35→21:50)
[2016-08-30] MEDS: POTASSIUM CHLORIDE 8 MEQ TABLET.ER PO SCH (08:35)
[2016-08-30] MEDS: PAROXETINE 10 MG TABLET PO SCH (08:35)
[2016-08-30] MEDS: ASCORBIC ACID 500 MG TABLET PO SCH (08:35)
[2016-08-30] MEDS: AMLODIPINE 5 MG TABLET PO SCH (08:35)
[2016-08-30] MEDS: TUDORZA PRESSAIR 400 MCG INH SCH ×2 (08:37→21:00)
[2016-08-30] MEDS: FLUTICASONE PROPIONATE HOMEINH SCH ×2 (08:37→21:00)
[2016-08-30] MEDS: SALMETEROL HOMEINH SCH ×2 (08:37→21:00)
[2016-08-30 13:04] VITALS: BP 146/73
[2016-08-30] MEDS: WINE PO SCH (17:27)
[2016-08-30 21:45] VITALS: BP 161/75
[2016-08-30] MEDS: CIMETIDINE 200 MG TABLET PO SCH (21:49)
[2016-08-30] MEDS: ATORVASTATIN 40 MG TABLET PO SCH (21:50)
[2016-08-31 02:05] VITALS: BP 167/79
[2016-08-31] MEDS: ASPIRIN 81 MG TABLET EC PO SCH (05:03)
[2016-08-31] MEDS: ALBUTEROL/IPRATROPIUM 2.5MG/0.5MG, 3 ML NPPB SCH ×4 (05:56→19:47)
[2016-08-31 06:35] LABS: BLOOD UREA NITROGEN 14 mg/dL (7-18)
[2016-08-31 06:42] LABS: DIFF TOTAL CELLS COUNTED 100 CELL DIFF
[2016-08-31 06:44] LABS: VERIFY COUNTS? YES
[2016-08-31 06:48] LABS: HYPOCHROMIA 2+; POLYCHROMASIA 1+
[2016-08-31 06:50] LABS: ANISOCYTOSIS 1+
[2016-08-31] MEDS: DILTIAZEM 120 MG CAP.ER.24H PO SCH (09:00)
[2016-08-31] MEDS: TUDORZA PRESSAIR 400 MCG INH SCH ×3 (09:00→21:31)
[2016-08-31] MEDS: FLUTICASONE PROPIONATE HOMEINH SCH ×3 (09:00→21:31)
[2016-08-31] MEDS: SALMETEROL HOMEINH SCH ×3 (09:00→21:31)
[2016-08-31] MEDS: VITAMIN E 400 UNITS CAPSULE PO SCH (09:39)
[2016-08-31] MEDS: CLOPIDOGREL 75 MG TABLET PO SCH (09:39)
[2016-08-31] MEDS: AMLODIPINE 5 MG TABLET PO SCH (09:39)
[2016-08-31] MEDS: POTASSIUM CHLORIDE 8 MEQ TABLET.ER PO SCH (09:39)
[2016-08-31] MEDS: FERROUS SULFATE 325 MG TABLET PO SCH ×2 (09:39→21:34)
[2016-08-31] MEDS: ASCORBIC ACID 500 MG TABLET PO SCH (09:39)
[2016-08-31] MEDS: PAROXETINE 10 MG TABLET PO SCH (09:39)
[2016-08-31] MEDS: DIPHENOXYLATE/ATROPINE TABLET PO SCH ×2 (09:39→21:33)
[2016-08-31] MEDS: CARVEDILOL 12.5 MG TABLET PO SCH ×2 (09:39→21:34)
[2016-08-31] MEDS: ENOXAPARIN 40 MG/0.4 ML SQ SCH (09:40)
[2016-08-31] MEDS: TERAZOSIN 2MG CAPSULE PO SCH (09:42)
[2016-08-31 09:44] VITALS: BP 188/77
[2016-08-31 14:50] VITALS: BP 126/54
[2016-08-31] MEDS: WINE PO SCH (20:00)
[2016-08-31 20:20] VITALS: BP 176/83
[2016-08-31] MEDS: CIMETIDINE 200 MG TABLET PO SCH (21:33)
[2016-08-31] MEDS: ATORVASTATIN 40 MG TABLET PO SCH (21:34)
[2016-09-01 00:41] VITALS: BP 156/75
[2016-09-01 05:02] LABS: BLOOD UREA NITROGEN 13 mg/dL (7-18)
[2016-09-01] MEDS: ASPIRIN 81 MG TABLET EC PO SCH (05:53)
[2016-09-01] MEDS: ALBUTEROL/IPRATROPIUM 2.5MG/0.5MG, 3 ML NPPB SCH ×4 (06:00→20:05)
[2016-09-01 09:01] VITALS: BP 172/75
[2016-09-01] MEDS: FLUTICASONE PROPIONATE HOMEINH SCH ×2 (09:58→19:52)
[2016-09-01] MEDS: SALMETEROL HOMEINH SCH ×2 (09:58→19:52)
[2016-09-01] MEDS: DILTIAZEM 120 MG CAP.ER.24H PO SCH (09:59)
[2016-09-01] MEDS: CLOPIDOGREL 75 MG TABLET PO SCH (09:59)
[2016-09-01] MEDS: PAROXETINE 10 MG TABLET PO SCH (09:59)
[2016-09-01] MEDS: TERAZOSIN 2MG CAPSULE PO SCH (09:59)
[2016-09-01] MEDS: TUDORZA PRESSAIR 400 MCG INH SCH ×2 (09:59→19:53)
[2016-09-01] MEDS: AMLODIPINE 5 MG TABLET PO SCH (09:59)
[2016-09-01] MEDS: DIPHENOXYLATE/ATROPINE TABLET PO SCH ×2 (10:00→19:47)
[2016-09-01] MEDS: FERROUS SULFATE 325 MG TABLET PO SCH ×2 (10:00→19:47)
[2016-09-01] MEDS: POTASSIUM CHLORIDE 8 MEQ TABLET.ER PO SCH (10:00)
[2016-09-01] MEDS: CARVEDILOL 12.5 MG TABLET PO SCH ×2 (10:00→19:47)
[2016-09-01] MEDS: ASCORBIC ACID 500 MG TABLET PO SCH (10:00)
[2016-09-01] MEDS: VITAMIN E 400 UNITS CAPSULE PO SCH (10:00)
[2016-09-01] MEDS: ENOXAPARIN 40 MG/0.4 ML SQ SCH (10:00)
[2016-09-01 14:36] VITALS: BP 153/63
[2016-09-01] MEDS: WINE PO SCH (18:00)
[2016-09-01 18:42] VITALS: BP 173/63
[2016-09-01] MEDS: ATORVASTATIN 40 MG TABLET PO SCH (19:47)
[2016-09-01] MEDS: CIMETIDINE 200 MG TABLET PO SCH (19:48)
[2016-09-02 03:01] VITALS: BP 167/78
[2016-09-02 05:33] LABS: BLOOD UREA NITROGEN 9 mg/dL (7-18)
[2016-09-02] MEDS: ALBUTEROL/IPRATROPIUM 2.5MG/0.5MG, 3 ML NPPB SCH ×3 (06:00→14:50)
[2016-09-02] MEDS: ASPIRIN 81 MG TABLET EC PO SCH (06:03)
[2016-09-02 08:13] VITALS: BP 164/80
[2016-09-02] MEDS: CLOPIDOGREL 75 MG TABLET PO SCH (10:07)
[2016-09-02] MEDS: ASCORBIC ACID 500 MG TABLET PO SCH (10:07)
[2016-09-02] MEDS: FERROUS SULFATE 325 MG TABLET PO SCH (10:07)
[2016-09-02] MEDS: PAROXETINE 10 MG TABLET PO SCH (10:07)
[2016-09-02] MEDS: DILTIAZEM 120 MG CAP.ER.24H PO SCH (10:07)
[2016-09-02] MEDS: DIPHENOXYLATE/ATROPINE TABLET PO SCH (10:07)
[2016-09-02] MEDS: TERAZOSIN 2MG CAPSULE PO SCH (10:07)
[2016-09-02] MEDS: CARVEDILOL 12.5 MG TABLET PO SCH (10:07)
[2016-09-02] MEDS: POTASSIUM CHLORIDE 8 MEQ TABLET.ER PO SCH (10:07)
[2016-09-02] MEDS: FLUTICASONE PROPIONATE HOMEINH SCH (10:08)
[2016-09-02] MEDS: TUDORZA PRESSAIR 400 MCG INH SCH (10:08)
[2016-09-02] MEDS: SALMETEROL HOMEINH SCH (10:08)
[2016-09-02] MEDS: AMLODIPINE 5 MG TABLET PO SCH (10:08)
[2016-09-02] MEDS: VITAMIN E 400 UNITS CAPSULE PO SCH (10:09)
[2016-09-02] MEDS: ENOXAPARIN 40 MG/0.4 ML SQ SCH (10:09)
[2016-09-02] MEDS ORDERED: DILT120C9 PO (13:33)
[2016-09-02] MEDS ORDERED: ASPI-621 PO (13:33)
[2016-09-02] MEDS ORDERED: IPRA3AMP INH (14:00)
[2016-09-02 14:32] VITALS: BP 164/76
== END 2016-09-02 17:00 | disposition home or self-care (01) | DRG 682 ==
LOC: ED 07:05 → EDIP 07:38 → 5SO 09:25 → DCLOUNGE 09-02 15:55
PROVIDERS: ADMIT Hospitalist
DX: N17.0 Acute kidney failure with tubular necrosis (principal); J96.21 Acute and chronic respiratory failure with hypoxia; J96.92 Respiratory failure, unspecified with hypercapnia; J44.1 Chronic obstructive pulmonary disease with (acute) exacerbation; E87.2 Acidosis; I50.32 Chronic diastolic (congestive) heart failure; E78.5 Hyperlipidemia, unspecified; F17.210 Nicotine dependence, cigarettes, uncomplicated; F41.9 Anxiety disorder, unspecified; G47.33 Obstructive sleep apnea (adult) (pediatric); I11.0 Hypertensive heart disease with heart failure; I25.10 Atherosclerotic heart disease of native coronary artery without angina pectoris; I25.2 Old myocardial infarction; I48.0 Paroxysmal atrial fibrillation; I71.4 Abdominal aortic aneurysm, without rupture; I73.9 Peripheral vascular disease, unspecified; Z71.6 Tobacco abuse counseling; Z53.29 Procedure and treatment not carried out because of patient's decision for other reasons; Z79.02 Long term (current) use of antithrombotics/antiplatelets; Z79.82 Long term (current) use of aspirin; Z79.899 Other long term (current) drug therapy; Z80.1 Family history of malignant neoplasm of trachea, bronchus and lung; Z86.73 Personal history of transient ischemic attack (TIA), and cerebral infarction without residual deficits; Z99.81 Dependence on supplemental oxygen; E66.01 Morbid (severe) obesity due to excess calories; Z68.35 Body mass index [BMI] 35.0-35.9, adult
CPT/HCPCS: 36415; 36600; 71010; 71020; 76770; 80048; 80053; 81001; 81003; 82040; 82436; 82803; 83605; 83735; 83880; 84133; 84300; 84443; 84484; 85025; 85379; 85610; 87040; 87086; 93005; 94640; 96374; 96376; J1650; J1940; J7620; P9041; P9047; J0282; J0360; J1120; J2930; J7030; J7040; J7060; J7512; P9045

== ENCOUNTER 2016-09-03 03:58 | Inpatient (IN) | payer MEDICARE, OTHER ==
[~2016-09-03] VITALS: Ht 162.6 cm; Wt 88.9 kg
[~2016-09-03 03:58] MED LIST changes: +ASCO500T8 PO; +DILT120C9 PO; +IPRA3AMP INH; +POTA20PA PO; +POTA8CAP PO; +VITA400C9 PO
[2016-09-03] MEDS ORDERED: MAGNESIUM SULFATE PMX 2GM/50ML 50 ML IV ONE (04:30)
[2016-09-03] MEDS ORDERED: ROCURONIUM 10 MG/ML IVPush ONE (04:30)
[2016-09-03] MEDS ORDERED: MIDAZOLAM 1 MG/ML, 5ML IVP PRN (04:30)
[2016-09-03] MEDS ORDERED: methylPREDNISolone SOD SUCC 125 MG/2 ML IVPush ONE (04:30)
[2016-09-03] MEDS ORDERED: ETOMIDATE 20 MG/10 ML IV ONE (04:30)
[2016-09-03 04:34] LABS: BLOOD UREA NITROGEN 11 mg/dL (7-18)
[2016-09-03 04:35] LABS: ASPARTATE AMINO TRANSFERASE 9 U/L (15-37)
[2016-09-03 04:41] LABS: IS PT STATUS REG ER OR PRE ER? YES
[2016-09-03 04:42] LABS: ABG COLLECTION SITE NOT DOCUMENTED
[2016-09-03 04:47] LABS: HEMATOCRIT 34.1 % (34.6-47.8); HEMOGLOBIN 10.4 g/dL (11.7-16.4); WHITE BLOOD COUNT 9.5 x10^3/uL (3.4-10)
[2016-09-03] MEDS ORDERED: methylPREDNISolone SOD SUCC 125 MG/2 ML ONE (04:48)
[2016-09-03] MEDS: PROPOFOL 100 ML IV PRN ×5 (04:52→20:17)
[2016-09-03] MEDS: ALBUTEROL/IPRATROPIUM 2.5MG/0.5MG, 3 ML NPPB SCH (05:01)
[2016-09-03] MEDS ORDERED: ACETAMINOPHEN 325 MG TABLET PO PRN (07:30)
[2016-09-03] MEDS ORDERED: DOCUSATE 100 MG CAPSULE PO PRN (07:30)
[2016-09-03] MEDS ORDERED: BISACODYL 10 MG SUPP PR PRN (07:30)
[2016-09-03 07:37] LABS: ABG COLLECTION SITE LEFT RADIAL; COLLATERAL CIRCULATION TESTING NORMAL
[2016-09-03] MEDS ORDERED: DILTIAZEM 120 MG CAP.ER.24H PO SCH (09:00)
[2016-09-03] MEDS: ENOXAPARIN 40 MG/0.4 ML SQ SCH (09:03)
[2016-09-03] MEDS: FERROUS SULFATE 325 MG TABLET PO SCH ×2 (09:04→20:49)
[2016-09-03] MEDS: CARVEDILOL 12.5 MG TABLET PO SCH ×2 (09:04→20:49)
[2016-09-03] MEDS: PAROXETINE 10 MG TABLET PO SCH (09:05)
[2016-09-03] MEDS: AMLODIPINE 5 MG TABLET PO SCH (09:05)
[2016-09-03] MEDS: TERAZOSIN 2MG CAPSULE PO SCH (09:05)
[2016-09-03] MEDS: CLOPIDOGREL 75 MG TABLET PO SCH (09:05)
[2016-09-03] MEDS: methylPREDNISolone SOD SUCC 125 MG/2 ML IVPush SCH ×3 (09:06→22:02)
[2016-09-03 09:27] LABS: PATH.CAST-FLAG NOT PRESENT; SPERM-FLAG NOT PRESENT; SRC-FLAG NOT PRESENT; XTAL-FLAG NOT PRESENT; YLC-FLAG NOT PRESENT
[2016-09-03] MEDS: ALBUTEROL/IPRATROPIUM 2.5MG/0.5MG, 3 ML INLINE SCH ×7 (10:09→21:54)
[2016-09-03] MEDS ORDERED: MIDAZOLAM 1 MG/ML, 5ML ONE (12:00)
[2016-09-03] MEDS ORDERED: ROCURONIUM 10 MG/ML ONE (12:00)
[2016-09-03] MEDS ORDERED: ETOMIDATE 40 MG/20 ML ONE (12:00)
[2016-09-03] MEDS ORDERED: PROPOFOL 10 MG/ML, 100ML IV ONE (12:00)
[2016-09-03] MEDS ORDERED: PROPOFOL 10 MG/ML, 20ML ONE (12:00)
[2016-09-03 13:29] VITALS: BP 162/72
[2016-09-03] MEDS: SODIUM CHLORIDE 0.9% 1,000 ML IV SCH (13:44)
[2016-09-03] MEDS ORDERED: PHARMACY MAY ADJ FOR RENAL FX MC SCH (15:30)
[2016-09-03] MEDS ORDERED: FENTANYL PF 100 MCG/2ML IVPush PRN (15:30)
[2016-09-03] MEDS ORDERED: GLUCAGON 1 MG IM PRN (15:30)
[2016-09-03] MEDS ORDERED: LIDOCAINE-MPF 1%, 2ML ENDO PRN (15:30)
[2016-09-03] MEDS ORDERED: DEXTROSE 50%, 50ML SYRINGE IVPush PRN (15:30)
[2016-09-03] MEDS ORDERED: SODIUM CHLORIDE 0.9% 1,000ML IVBOLUS ONE (15:30)
[2016-09-03] MEDS ORDERED: hydrALAzine 20 MG/ML, 1ML IV PRN (16:30)
[2016-09-03] MEDS ORDERED: SODIUM CHLORIDE 0.9%, 500ML IVBOLUS ONE ×2 (20:30→23:00)
[2016-09-03] MEDS: PANTOPRAZOLE 40 MG IV IVPush SCH (20:49)
[2016-09-03] MEDS: ATORVASTATIN 40 MG TABLET PO SCH (20:49)
[2016-09-03] MEDS: CIMETIDINE 200 MG TABLET PO SCH (20:50)
[2016-09-03] MEDS: hydrALAzine 20 MG/ML, 1ML IV PRN (23:09)
[2016-09-04] MEDS: ALBUTEROL/IPRATROPIUM 2.5MG/0.5MG, 3 ML INLINE SCH ×6 (01:39→22:04)
[2016-09-04] MEDS: SODIUM CHLORIDE 0.9% 1,000 ML IV SCH ×2 (02:21→13:58)
[2016-09-04] MEDS: PROPOFOL 100 ML IV PRN ×5 (03:29→22:15)
[2016-09-04 04:00] VITALS: BP 165/68
[2016-09-04] MEDS: methylPREDNISolone SOD SUCC 125 MG/2 ML IVPush SCH ×4 (04:14→22:02)
[2016-09-04 04:21] LABS: ABG COLLECTION SITE LEFT RADIAL; COLLATERAL CIRCULATION TESTING NORMAL
[2016-09-04 04:22] LABS: HEMATOCRIT 30.3 % (34.6-47.8); HEMOGLOBIN 9.6 g/dL (11.7-16.4); WHITE BLOOD COUNT 5.8 x10^3/uL (3.4-10)
[2016-09-04 04:29] LABS: ASPARTATE AMINO TRANSFERASE 7 U/L (15-37); BLOOD UREA NITROGEN 15 mg/dL (7-18)
[2016-09-04] MEDS: hydrALAzine 20 MG/ML, 1ML IV PRN ×3 (05:42→20:52)
[2016-09-04] MEDS: ASPIRIN 81 MG TABLET EC PO SCH (05:44)
[2016-09-04] MEDS: ENOXAPARIN 40 MG/0.4 ML SQ SCH (08:30)
[2016-09-04] MEDS: CARVEDILOL 12.5 MG TABLET PO SCH ×2 (08:31→20:57)
[2016-09-04] MEDS: FERROUS SULFATE 325 MG TABLET PO SCH ×2 (08:31→20:57)
[2016-09-04] MEDS: AMLODIPINE 5 MG TABLET PO SCH (08:32)
[2016-09-04] MEDS: TERAZOSIN 2MG CAPSULE PO SCH (08:33)
[2016-09-04] MEDS: CLOPIDOGREL 75 MG TABLET PO SCH (08:33)
[2016-09-04] MEDS: PAROXETINE 10 MG TABLET PO SCH (08:34)
[2016-09-04] MEDS ORDERED: LORazepam 2 MG/ML, 1ML ONE (11:09)
[2016-09-04] MEDS: DILTIAZEM 60 MG TABLET NG SCH ×2 (11:20→21:27)
[2016-09-04] MEDS ORDERED: LORazepam 2 MG/ML, 1ML IVPush ONE (11:30)
[2016-09-04] MEDS: NICOTINE 7 MG/24 HR PATCH.TD24 TD SCH (13:57)
[2016-09-04] MEDS: PANTOPRAZOLE 40 MG IV IVPush SCH (18:12)
[2016-09-04] MEDS: ATORVASTATIN 40 MG TABLET PO SCH (20:57)
[2016-09-04] MEDS: CIMETIDINE 200 MG TABLET PO SCH (20:58)
[2016-09-05] MEDS: SODIUM CHLORIDE 0.9% 1,000 ML IV SCH (01:36)
[2016-09-05] MEDS: ALBUTEROL/IPRATROPIUM 2.5MG/0.5MG, 3 ML INLINE SCH ×6 (03:00→23:00)
[2016-09-05] MEDS: PROPOFOL 100 ML IV PRN ×2 (03:09→06:08)
[2016-09-05 04:00] VITALS: BP 164/70
[2016-09-05] MEDS: methylPREDNISolone SOD SUCC 125 MG/2 ML IVPush SCH ×4 (04:00→21:34)
[2016-09-05] MEDS: hydrALAzine 20 MG/ML, 1ML IV PRN ×2 (04:00→17:28)
[2016-09-05 04:43] LABS: HEMATOCRIT 30.6 % (34.6-47.8); HEMOGLOBIN 9.7 g/dL (11.7-16.4); WHITE BLOOD COUNT 6.5 x10^3/uL (3.4-10)
[2016-09-05 04:48] LABS: ABG COLLECTION SITE RIGHT BRACHIAL
[2016-09-05 05:16] LABS: DIFF TOTAL CELLS COUNTED 100 CELL DIFF
[2016-09-05 05:19] LABS: ANISOCYTOSIS 1+; VERIFY COUNTS? YES
[2016-09-05 05:20] LABS: OVALOCYTES 1+; POLYCHROMASIA 1+
[2016-09-05] MEDS: ASPIRIN 81 MG TABLET EC PO SCH (06:04)
[2016-09-05] MEDS ORDERED: LORazepam 2 MG/ML, 1ML IVPush PRN (07:30)
[2016-09-05] MEDS: ENOXAPARIN 40 MG/0.4 ML SQ SCH (08:07)
[2016-09-05] MEDS: PANTOPRAZOLE 40 MG IV IVPush SCH (08:07)
[2016-09-05] MEDS: DILTIAZEM 60 MG TABLET NG SCH ×2 (08:13→21:59)
[2016-09-05] MEDS: PAROXETINE 10 MG TABLET PO SCH (08:16)
[2016-09-05] MEDS: FERROUS SULFATE 325 MG TABLET PO SCH ×2 (09:16→21:34)
[2016-09-05] MEDS: CARVEDILOL 12.5 MG TABLET PO SCH ×2 (09:17→21:34)
[2016-09-05] MEDS: CLOPIDOGREL 75 MG TABLET PO SCH (09:17)
[2016-09-05] MEDS: TERAZOSIN 2MG CAPSULE PO SCH (09:17)
[2016-09-05] MEDS: AMLODIPINE 5 MG TABLET PO SCH (09:18)
[2016-09-05] MEDS: NICOTINE 7 MG/24 HR PATCH.TD24 TD SCH (13:43)
[2016-09-05] MEDS: CIMETIDINE 200 MG TABLET PO SCH (21:34)
[2016-09-05] MEDS: ATORVASTATIN 40 MG TABLET PO SCH (21:34)
[2016-09-06] MEDS ORDERED: ALBUTEROL/IPRATROPIUM 2.5MG/0.5MG, 3 ML NPPB PRN ×2 (02:00→05:00)
[2016-09-06] MEDS: SODIUM CHLORIDE 0.9% 1,000 ML IV SCH ×2 (02:40→11:00)
[2016-09-06] MEDS: ALBUTEROL/IPRATROPIUM 2.5MG/0.5MG, 3 ML INLINE SCH (03:00)
[2016-09-06 04:00] VITALS: BP 123/56
[2016-09-06] MEDS: methylPREDNISolone SOD SUCC 125 MG/2 ML IVPush SCH ×4 (04:08→22:06)
[2016-09-06 04:18] LABS: ABG COLLECTION SITE RIGHT RADIAL; COLLATERAL CIRCULATION TESTING NORMAL
[2016-09-06 04:32] LABS: HEMATOCRIT 29.6 % (34.6-47.8); HEMOGLOBIN 9.1 g/dL (11.7-16.4); WHITE BLOOD COUNT 5.8 x10^3/uL (3.4-10)
[2016-09-06 04:58] LABS: DIFF TOTAL CELLS COUNTED 100 CELL DIFF
[2016-09-06] MEDS ORDERED: ALBUTEROL/IPRATROPIUM 2.5MG/0.5MG, 3 ML NPPB SCH (05:00)
[2016-09-06 05:02] LABS: ANISOCYTOSIS 1+; OVALOCYTES 1+; POLYCHROMASIA 1+; VERIFY COUNTS? YES
[2016-09-06] MEDS: ALBUTEROL/IPRATROPIUM 2.5MG/0.5MG, 3 ML NPPB SCH ×5 (07:40→22:00)
[2016-09-06] MEDS ORDERED: OMNIPAQUE 350 MG/ML, 100ML BOTTLE ONE (10:18)
[2016-09-06] MEDS: ENOXAPARIN 40 MG/0.4 ML SQ SCH (10:47)
[2016-09-06] MEDS: ASPIRIN 81 MG TABLET EC PO SCH (10:47)
[2016-09-06] MEDS: AMLODIPINE 5 MG TABLET PO SCH (10:48)
[2016-09-06] MEDS: CLOPIDOGREL 75 MG TABLET PO SCH (10:48)
[2016-09-06] MEDS: TERAZOSIN 2MG CAPSULE PO SCH (10:48)
[2016-09-06] MEDS: DILTIAZEM 60 MG TABLET NG SCH ×2 (10:48→20:41)
[2016-09-06] MEDS: CARVEDILOL 12.5 MG TABLET PO SCH ×2 (10:48→20:41)
[2016-09-06] MEDS: PAROXETINE 10 MG TABLET PO SCH (10:48)
[2016-09-06] MEDS: FERROUS SULFATE 325 MG TABLET PO SCH ×2 (10:49→20:41)
[2016-09-06] MEDS: ALBUMIN HUMAN 25% 100 ML IV SCH ×2 (10:55→19:48)
[2016-09-06] MEDS: NICOTINE 7 MG/24 HR PATCH.TD24 TD SCH (12:00)
[2016-09-06] MEDS: WINE PO SCH ×4 (12:00→20:03)
[2016-09-06] MEDS: FUROSEMIDE 20 MG/2 ML IV SCH ×2 (12:57→20:41)
[2016-09-06] MEDS: ATORVASTATIN 40 MG TABLET PO SCH (20:41)
[2016-09-06] MEDS: CIMETIDINE 200 MG TABLET PO SCH (20:41)
[2016-09-07 04:00] VITALS: BP 157/58
[2016-09-07] MEDS: methylPREDNISolone SOD SUCC 125 MG/2 ML IVPush SCH ×4 (04:22→21:44)
[2016-09-07 04:32] LABS: ABG COLLECTION SITE LEFT RADIAL; COLLATERAL CIRCULATION TESTING NORMAL
[2016-09-07 04:43] LABS: HEMATOCRIT 28.5 % (34.6-47.8); HEMOGLOBIN 8.8 g/dL (11.7-16.4); WHITE BLOOD COUNT 6.1 x10^3/uL (3.4-10)
[2016-09-07 04:51] LABS: BLOOD UREA NITROGEN 33 mg/dL (7-18)
[2016-09-07 05:39] LABS: ANISOCYTOSIS 1+; OVALOCYTES 1+; POLYCHROMASIA 1+
[2016-09-07] MEDS: ASPIRIN 81 MG TABLET EC PO SCH (06:18)
[2016-09-07] MEDS: ALBUTEROL/IPRATROPIUM 2.5MG/0.5MG, 3 ML NPPB SCH ×4 (06:30→19:10)
[2016-09-07] MEDS: ALBUMIN HUMAN 25% 100 ML IV SCH (07:17)
[2016-09-07] MEDS: ENOXAPARIN 40 MG/0.4 ML SQ SCH (07:17)
[2016-09-07] MEDS: PAROXETINE 10 MG TABLET PO SCH (07:20)
[2016-09-07] MEDS: TERAZOSIN 2MG CAPSULE PO SCH (07:20)
[2016-09-07] MEDS: DILTIAZEM 60 MG TABLET NG SCH (07:21)
[2016-09-07] MEDS: CARVEDILOL 12.5 MG TABLET PO SCH ×2 (07:21→17:39)
[2016-09-07] MEDS: FERROUS SULFATE 325 MG TABLET PO SCH ×2 (07:21→20:25)
[2016-09-07] MEDS: AMLODIPINE 5 MG TABLET PO SCH (07:21)
[2016-09-07] MEDS: CLOPIDOGREL 75 MG TABLET PO SCH (07:21)
[2016-09-07 08:53] LABS: ABG COLLECTION SITE RIGHT BRACHIAL
[2016-09-07] MEDS ORDERED: SODIUM CHLORIDE 0.9% 1,000 ML IV SCH (09:00)
[2016-09-07] MEDS: NICOTINE 7 MG/24 HR PATCH.TD24 TD SCH (12:00)
[2016-09-07] MEDS: WINE PO SCH ×3 (12:07→18:06)
[2016-09-07] MEDS: hydrALAzine 20 MG/ML, 1ML IV PRN ×2 (18:22→22:22)
[2016-09-07] MEDS: ATORVASTATIN 40 MG TABLET PO SCH (20:25)
[2016-09-07] MEDS: DILTIAZEM 120 MG CAP.ER.24H PO SCH (20:26)
[2016-09-07] MEDS: CIMETIDINE 200 MG TABLET PO SCH ×2 (20:30→20:35)
[2016-09-07] MEDS: TUDORZA 400 MCG IH SCH (21:45)
[2016-09-07] MEDS: ADVAIR IH SCH (21:45)
[2016-09-08] MEDS: hydrALAzine 20 MG/ML, 1ML IV PRN ×7 (00:06→22:44)
[2016-09-08] MEDS: ALBUTEROL/IPRATROPIUM 2.5MG/0.5MG, 3 ML NPPB SCH ×7 (00:25→22:00)
[2016-09-08] MEDS: PROPOFOL 100 ML IV PRN ×7 (02:20→22:41)
[2016-09-08] MEDS ORDERED: NOREPINEPHRINE 4 MG in SODIUM CHLORIDE 0.9% 246 ML IV PRN (02:22)
[2016-09-08] MEDS ORDERED: LIDOCAINE-MPF 1%, 2ML ENDO PRN (02:30)
[2016-09-08 04:00] VITALS: BP 189/74
[2016-09-08] MEDS: methylPREDNISolone SOD SUCC 125 MG/2 ML IVPush SCH ×4 (04:00→22:41)
[2016-09-08 04:01] LABS: ABG COLLECTION SITE LEFT RADIAL; COLLATERAL CIRCULATION TESTING NORMAL
[2016-09-08 04:02] LABS: HEMATOCRIT 28.4 % (34.6-47.8); HEMOGLOBIN 8.7 g/dL (11.7-16.4)
[2016-09-08 04:09] LABS: BLOOD UREA NITROGEN 50 mg/dL (7-18)
[2016-09-08 04:24] LABS: DIFF TOTAL CELLS COUNTED 100 CELL DIFF
[2016-09-08 04:28] LABS: VERIFY COUNTS? YES
[2016-09-08 04:29] LABS: ANISOCYTOSIS 1+; POLYCHROMASIA 1+
[2016-09-08] MEDS: ASPIRIN 81 MG TABLET CHEW PO SCH (05:35)
[2016-09-08] MEDS: ENOXAPARIN 40 MG/0.4 ML SQ SCH (07:30)
[2016-09-08] MEDS: ENOXAPARIN 30 MG/0.3 ML SQ SCH (08:00)
[2016-09-08] MEDS: FENTANYL PF 100 MCG/2ML IVPush PRN ×4 (08:41→17:16)
[2016-09-08] MEDS: TUDORZA 400 MCG IH SCH ×2 (09:00→21:00)
[2016-09-08] MEDS: ADVAIR IH SCH ×2 (09:00→21:00)
[2016-09-08] MEDS: PAROXETINE 10 MG TABLET PO SCH (09:22)
[2016-09-08] MEDS: AMLODIPINE 5 MG TABLET PO SCH (09:22)
[2016-09-08] MEDS: CLOPIDOGREL 75 MG TABLET PO SCH (09:22)
[2016-09-08] MEDS: SODIUM CHLORIDE FLUSH 10ML SYR IVF SCH ×2 (09:22→20:00)
[2016-09-08] MEDS: CARVEDILOL 12.5 MG TABLET PO SCH ×2 (09:23→19:56)
[2016-09-08] MEDS: TERAZOSIN 2MG CAPSULE PO SCH (09:23)
[2016-09-08] MEDS: FERROUS SULFATE 325 MG TABLET PO SCH ×2 (09:23→19:56)
[2016-09-08] MEDS: NICOTINE 7 MG/24 HR PATCH.TD24 TD SCH (12:00)
[2016-09-08] MEDS: WINE PO SCH ×2 (12:00→16:04)
[2016-09-08] MEDS: ATORVASTATIN 40 MG TABLET PO SCH (19:56)
[2016-09-08] MEDS: DILTIAZEM 120 MG CAP.ER.24H PO SCH (19:56)
[2016-09-08] MEDS: CIMETIDINE 200 MG TABLET PO SCH (19:57)
[2016-09-09] MEDS ORDERED: PROPOFOL 10 MG/ML, 100ML IV ONE
[2016-09-09] MEDS ORDERED: MIDAZOLAM 1 MG/ML, 5ML ONE
[2016-09-09] MEDS ORDERED: ETOMIDATE 40 MG/20 ML ONE
[2016-09-09] MEDS: PROPOFOL 100 ML IV PRN ×4 (02:27→20:08)
[2016-09-09] MEDS: ALBUTEROL/IPRATROPIUM 2.5MG/0.5MG, 3 ML NPPB SCH ×6 (02:30→23:00)
[2016-09-09 04:41] LABS: ABG COLLECTION SITE RIGHT RADIAL; COLLATERAL CIRCULATION TESTING NORMAL
[2016-09-09 04:47] LABS: HEMATOCRIT 29.4 % (34.6-47.8); HEMOGLOBIN 9.2 g/dL (11.7-16.4); WHITE BLOOD COUNT 5.3 x10^3/uL (3.4-10)
[2016-09-09 04:53] LABS: BLOOD UREA NITROGEN 56 mg/dL (7-18)
[2016-09-09] MEDS: methylPREDNISolone SOD SUCC 125 MG/2 ML IVPush SCH ×4 (04:56→20:41)
[2016-09-09] MEDS: ASPIRIN 81 MG TABLET CHEW PO SCH (04:56)
[2016-09-09 05:00] VITALS: BP 165/55
[2016-09-09] MEDS: hydrALAzine 20 MG/ML, 1ML IV PRN ×4 (05:44→22:36)
[2016-09-09] MEDS: FENTANYL PF 100 MCG/2ML IVPush PRN ×5 (05:45→22:36)
[2016-09-09 05:48] LABS: ANISOCYTOSIS 1+; OVALOCYTES 1+
[2016-09-09 05:49] LABS: HYPOCHROMIA 1+
[2016-09-09] MEDS: PAROXETINE 10 MG TABLET PO SCH (08:32)
[2016-09-09] MEDS: AMLODIPINE 5 MG TABLET PO SCH (08:32)
[2016-09-09] MEDS: CLOPIDOGREL 75 MG TABLET PO SCH (08:32)
[2016-09-09] MEDS: TERAZOSIN 2MG CAPSULE PO SCH (08:33)
[2016-09-09] MEDS: ENOXAPARIN 30 MG/0.3 ML SQ SCH (08:33)
[2016-09-09] MEDS: TUDORZA 400 MCG IH SCH ×2 (08:33→20:44)
[2016-09-09] MEDS: ADVAIR IH SCH ×2 (08:33→20:44)
[2016-09-09] MEDS: CARVEDILOL 12.5 MG TABLET PO SCH (08:33)
[2016-09-09] MEDS: SODIUM CHLORIDE FLUSH 10ML SYR IVF SCH ×2 (08:34→20:36)
[2016-09-09] MEDS: FERROUS SULFATE 325 MG TABLET PO SCH ×2 (08:34→20:34)
[2016-09-09] MEDS: NICOTINE 7 MG/24 HR PATCH.TD24 TD SCH (12:00)
[2016-09-09] MEDS: WINE PO SCH ×3 (12:00→20:18)
[2016-09-09] MEDS: POLYETHYLENE GLYCOL 17 GM PACKET PO PRN (15:50)
[2016-09-09] MEDS: ATORVASTATIN 40 MG TABLET PO SCH (20:34)
[2016-09-09] MEDS: CIMETIDINE 200 MG TABLET PO SCH (20:35)
[2016-09-09] MEDS: DILTIAZEM 60 MG TABLET PO SCH (20:36)
[2016-09-10] MEDS: PROPOFOL 100 ML IV PRN ×2 (00:13→05:23)
[2016-09-10] MEDS: hydrALAzine 20 MG/ML, 1ML IV PRN (02:18)
[2016-09-10] MEDS: FENTANYL PF 100 MCG/2ML IVPush PRN (02:18)
[2016-09-10] MEDS: ALBUTEROL/IPRATROPIUM 2.5MG/0.5MG, 3 ML NPPB SCH ×6 (03:00→23:00)
[2016-09-10 04:00] VITALS: BP 159/58
[2016-09-10] MEDS: methylPREDNISolone SOD SUCC 125 MG/2 ML IVPush SCH ×4 (04:19→22:15)
[2016-09-10 04:37] LABS: ABG COLLECTION SITE RIGHT RADIAL; COLLATERAL CIRCULATION TESTING NORMAL
[2016-09-10 04:42] LABS: HEMATOCRIT 27.2 % (34.6-47.8); HEMOGLOBIN 8.7 g/dL (11.7-16.4); WHITE BLOOD COUNT 5.6 x10^3/uL (3.4-10)
[2016-09-10 04:48] LABS: BLOOD UREA NITROGEN 64 mg/dL (7-18)
[2016-09-10] MEDS: ASPIRIN 81 MG TABLET CHEW PO SCH (05:22)
[2016-09-10] MEDS: DILTIAZEM 60 MG TABLET PO SCH ×3 (08:39→22:15)
[2016-09-10] MEDS: ENOXAPARIN 40 MG/0.4 ML SQ SCH (08:39)
[2016-09-10] MEDS: TERAZOSIN 2MG CAPSULE PO SCH (08:40)
[2016-09-10] MEDS: CLOPIDOGREL 75 MG TABLET PO SCH (08:40)
[2016-09-10] MEDS: AMLODIPINE 5 MG TABLET PO SCH (08:40)
[2016-09-10] MEDS: PAROXETINE 10 MG TABLET PO SCH (08:40)
[2016-09-10] MEDS: FERROUS SULFATE 325 MG TABLET PO SCH ×2 (08:40→22:14)
[2016-09-10] MEDS: NICOTINE 7 MG/24 HR PATCH.TD24 TD SCH (08:41)
[2016-09-10] MEDS ORDERED: LOSARTAN 50MG TABLET PO SCH (09:00)
[2016-09-10] MEDS: TUDORZA 400 MCG IH SCH ×2 (09:00→22:22)
[2016-09-10] MEDS: ADVAIR IH SCH ×2 (09:00→22:22)
[2016-09-10] MEDS: SODIUM CHLORIDE FLUSH 10ML SYR IVF SCH ×2 (10:18→22:13)
[2016-09-10] MEDS: POLYETHYLENE GLYCOL 17 GM PACKET PO PRN (12:34)
[2016-09-10] MEDS ORDERED: BUMETANIDE 0.25 MG/ML, 4ML IV ONE (14:00)
[2016-09-10] MEDS ORDERED: METHYLNALTREXONE 12 MG/0.6 ML SQ ONE (18:00)
[2016-09-10] MEDS: CIMETIDINE 200 MG TABLET PO SCH (22:14)
[2016-09-10] MEDS: ATORVASTATIN 40 MG TABLET PO SCH (22:15)
[2016-09-11] MEDS ORDERED: DOCUSATE 50 MG/5 ML, 10ML UDC PO PRN (00:31)
[2016-09-11] MEDS ORDERED: SODIUM CHLORIDE 0.9%, 250ML IVBOLUS ONE (02:00)
[2016-09-11] MEDS ORDERED: SODIUM CHLORIDE 0.9% 1,000 ML IV SCH (02:00)
[2016-09-11] MEDS: ALBUTEROL/IPRATROPIUM 2.5MG/0.5MG, 3 ML NPPB SCH ×6 (02:43→22:05)
[2016-09-11 04:27] VITALS: BP 162/45
[2016-09-11 04:53] LABS: ABG COLLECTION SITE RIGHT BRACHIAL
[2016-09-11 05:05] LABS: HEMATOCRIT 27.7 % (34.6-47.8); HEMOGLOBIN 8.7 g/dL (11.7-16.4); WHITE BLOOD COUNT 10.7 x10^3/uL (3.4-10)
[2016-09-11] MEDS: methylPREDNISolone SOD SUCC 125 MG/2 ML IVPush SCH ×4 (05:06→22:16)
[2016-09-11] MEDS: ASPIRIN 81 MG TABLET CHEW PO SCH (06:07)
[2016-09-11 06:58] LABS: BLOOD UREA NITROGEN 83 mg/dL (7-18)
[2016-09-11] MEDS: CLOPIDOGREL 75 MG TABLET PO SCH (08:58)
[2016-09-11] MEDS: AMLODIPINE 5 MG TABLET PO SCH (08:59)
[2016-09-11] MEDS: ADVAIR IH SCH ×2 (09:00→20:45)
[2016-09-11] MEDS: TERAZOSIN 2MG CAPSULE PO SCH (09:00)
[2016-09-11] MEDS: TUDORZA 400 MCG IH SCH ×2 (09:00→20:46)
[2016-09-11] MEDS: PAROXETINE 10 MG TABLET PO SCH (09:01)
[2016-09-11] MEDS: FERROUS SULFATE 325 MG TABLET PO SCH ×2 (09:01→20:47)
[2016-09-11] MEDS: DILTIAZEM 60 MG TABLET PO SCH ×3 (09:02→20:47)
[2016-09-11] MEDS: SODIUM CHLORIDE FLUSH 10ML SYR IVF SCH ×2 (09:03→20:46)
[2016-09-11] MEDS: ENOXAPARIN 40 MG/0.4 ML SQ SCH (09:03)
[2016-09-11] MEDS ORDERED: FUROSEMIDE 100 MG/10 ML IV ONE (10:00)
[2016-09-11] MEDS: NICOTINE 7 MG/24 HR PATCH.TD24 TD SCH (14:09)
[2016-09-11] MEDS ORDERED: ENOXAPARIN 30 MG/0.3 ML SQ SCH (16:00)
[2016-09-11] MEDS: ATORVASTATIN 40 MG TABLET PO SCH (20:47)
[2016-09-11] MEDS: CIMETIDINE 200 MG TABLET PO SCH (20:47)
[2016-09-11] MEDS: hydrALAzine 20 MG/ML, 1ML IV PRN (23:39)
[2016-09-11] MEDS: POLYETHYLENE GLYCOL 17 GM PACKET PO PRN (23:41)
[2016-09-12] MEDS: ALBUTEROL/IPRATROPIUM 2.5MG/0.5MG, 3 ML NPPB SCH ×6 (01:58→22:00)
[2016-09-12] MEDS: hydrALAzine 20 MG/ML, 1ML IV PRN ×2 (03:03→05:06)
[2016-09-12 03:20] LABS: PATH.CAST-FLAG NOT PRESENT; SPERM-FLAG NOT PRESENT; SRC-FLAG NOT PRESENT; XTAL-FLAG NOT PRESENT; YLC-FLAG NOT PRESENT
[2016-09-12 03:21] LABS: POTASSIUM,URINE RANDOM 35 mmol/L
[2016-09-12 03:40] VITALS: BP 157/59
[2016-09-12 04:22] LABS: ABG COLLECTION SITE RIGHT RADIAL; COLLATERAL CIRCULATION TESTING NORMAL
[2016-09-12 04:36] LABS: HEMATOCRIT 25.6 % (34.6-47.8); HEMOGLOBIN 8.1 g/dL (11.7-16.4); WHITE BLOOD COUNT 10.1 x10^3/uL (3.4-10)
[2016-09-12 04:45] LABS: BLOOD UREA NITROGEN 111 mg/dL (7-18)
[2016-09-12] MEDS: methylPREDNISolone SOD SUCC 125 MG/2 ML IVPush SCH ×3 (05:06→22:03)
[2016-09-12 05:16] LABS: DIFF TOTAL CELLS COUNTED 100 CELL DIFF
[2016-09-12 05:18] LABS: ANISOCYTOSIS 1+; HYPOCHROMIA 1+; OVALOCYTES 1+; POIKILOCYTOSIS 1+; VERIFY COUNTS? YES
[2016-09-12] MEDS ORDERED: CALCIUM GLUCONATE 4.6 MEQ in SODIUM CHLORIDE 0.9% 50 ML IV ONE (05:30)
[2016-09-12] MEDS: ASPIRIN 81 MG TABLET CHEW PO SCH (05:41)
[2016-09-12] MEDS: ADVAIR IH SCH ×2 (09:00→20:32)
[2016-09-12] MEDS: TUDORZA 400 MCG IH SCH ×2 (09:00→20:33)
[2016-09-12] MEDS: SODIUM CHLORIDE FLUSH 10ML SYR IVF SCH ×2 (09:25→20:30)
[2016-09-12] MEDS: TERAZOSIN 2MG CAPSULE PO SCH (09:25)
[2016-09-12] MEDS: FERROUS SULFATE 325 MG TABLET PO SCH ×2 (09:25→20:32)
[2016-09-12] MEDS: CLOPIDOGREL 75 MG TABLET PO SCH (09:25)
[2016-09-12] MEDS: ENOXAPARIN 30 MG/0.3 ML SQ SCH (09:26)
[2016-09-12] MEDS: DILTIAZEM 60 MG TABLET PO SCH ×3 (09:26→20:32)
[2016-09-12] MEDS: PAROXETINE 10 MG TABLET PO SCH (09:26)
[2016-09-12] MEDS: AMLODIPINE 5 MG TABLET PO SCH (09:26)
[2016-09-12] MEDS ORDERED: FUROSEMIDE 40 MG/4 ML IV ONE (09:30)
[2016-09-12] MEDS: ERGOCALCIFEROL 50,000 UNIT CAPSULE PO SCH (10:31)
[2016-09-12 10:46] LABS: FERRITIN 51.3 ng/mL (8-252)
[2016-09-12] MEDS: NICOTINE 7 MG/24 HR PATCH.TD24 TD SCH (17:20)
[2016-09-12] MEDS: ATORVASTATIN 40 MG TABLET PO SCH (20:32)
[2016-09-12] MEDS: POLYETHYLENE GLYCOL 17 GM PACKET PO PRN (20:38)
[2016-09-13] VITALS (11 sets, daily range): BP systolic 106–157; BP diastolic 48–89
[2016-09-13] MEDS: ALBUTEROL/IPRATROPIUM 2.5MG/0.5MG, 3 ML NPPB SCH ×6 (03:00→22:00)
[2016-09-13 04:39] LABS: ABG COLLECTION SITE LEFT RADIAL; COLLATERAL CIRCULATION TESTING NORMAL
[2016-09-13 04:48] LABS: ASPARTATE AMINO TRANSFERASE 9 U/L (15-37)
[2016-09-13 04:49] LABS: WHITE BLOOD COUNT 5.1 x10^3/uL (3.4-10)
[2016-09-13 04:53] LABS: HEMATOCRIT 21.5 % (34.6-47.8); HEMOGLOBIN 6.8 g/dL (11.7-16.4)
[2016-09-13 04:55] LABS: BLOOD UREA NITROGEN 98 mg/dL (7-18)
[2016-09-13] MEDS: ASPIRIN 81 MG TABLET CHEW PO SCH (05:12)
[2016-09-13] MEDS: CEFTRIAXONE PMX 1GM/50ML 50 ML IV SCH (07:40)
[2016-09-13] MEDS: SODIUM CHLORIDE FLUSH 10ML SYR IVF SCH ×2 (09:07→21:06)
[2016-09-13] MEDS: DILTIAZEM 60 MG TABLET PO SCH ×3 (09:07→21:07)
[2016-09-13] MEDS: FERROUS SULFATE 325 MG TABLET PO SCH (09:08)
[2016-09-13] MEDS: TERAZOSIN 2MG CAPSULE PO SCH (09:08)
[2016-09-13] MEDS: CLOPIDOGREL 75 MG TABLET PO SCH (09:09)
[2016-09-13] MEDS: ENOXAPARIN 30 MG/0.3 ML SQ SCH (09:09)
[2016-09-13] MEDS: PAROXETINE 10 MG TABLET PO SCH (09:09)
[2016-09-13] MEDS: AMLODIPINE 5 MG TABLET PO SCH (09:09)
[2016-09-13] MEDS: TUDORZA 400 MCG IH SCH ×2 (09:14→21:00)
[2016-09-13] MEDS: ADVAIR IH SCH ×2 (09:14→21:00)
[2016-09-13] MEDS: methylPREDNISolone SOD SUCC 125 MG/2 ML IVPush SCH ×2 (10:00→21:08)
[2016-09-13 10:59] LABS: HEP B SURF. AB < 3.1 mIU/mL (0.0-10.0)
[2016-09-13] MEDS: NICOTINE 7 MG/24 HR PATCH.TD24 TD SCH (17:14)
[2016-09-13] MEDS: ATORVASTATIN 40 MG TABLET PO SCH (21:07)
[2016-09-13] MEDS: FERROUS SULFATE 220 MG/5 ML ORAL SOL GT SCH (22:02)
[2016-09-14] MEDS: ALBUTEROL/IPRATROPIUM 2.5MG/0.5MG, 3 ML NPPB SCH ×6 (01:34→22:20)
[2016-09-14 03:30] VITALS: BP 164/64
[2016-09-14] MEDS: hydrALAzine 20 MG/ML, 1ML IV PRN (03:35)
[2016-09-14 04:41] LABS: HEMATOCRIT 29.2 % (34.6-47.8); HEMOGLOBIN 9.5 g/dL (11.7-16.4); WHITE BLOOD COUNT 8.9 x10^3/uL (3.4-10)
[2016-09-14 04:49] LABS: BLOOD UREA NITROGEN 68 mg/dL (7-18)
[2016-09-14 04:55] LABS: ASPARTATE AMINO TRANSFERASE 9 U/L (15-37)
[2016-09-14] MEDS: ASPIRIN 81 MG TABLET CHEW PO SCH (05:23)
[2016-09-14] MEDS: POLYETHYLENE GLYCOL 17 GM PACKET PO PRN (05:27)
[2016-09-14] MEDS: CEFTRIAXONE PMX 1GM/50ML 50 ML IV SCH (06:09)
[2016-09-14] MEDS: ADVAIR IH SCH ×2 (09:00→21:00)
[2016-09-14] MEDS: TUDORZA 400 MCG IH SCH ×2 (09:00→21:00)
[2016-09-14] MEDS: PAROXETINE 10 MG TABLET PO SCH (09:43)
[2016-09-14] MEDS: AMLODIPINE 5 MG TABLET PO SCH (09:43)
[2016-09-14] MEDS: CLOPIDOGREL 75 MG TABLET PO SCH (09:43)
[2016-09-14] MEDS: DILTIAZEM 60 MG TABLET PO SCH ×3 (09:43→21:17)
[2016-09-14] MEDS: FERROUS SULFATE 220 MG/5 ML ORAL SOL GT SCH ×2 (09:43→21:18)
[2016-09-14] MEDS: TERAZOSIN 2MG CAPSULE PO SCH (09:43)
[2016-09-14] MEDS: methylPREDNISolone SOD SUCC 125 MG/2 ML IVPush SCH ×2 (09:44→21:17)
[2016-09-14] MEDS: ENOXAPARIN 40 MG/0.4 ML SQ SCH (09:45)
[2016-09-14] MEDS: SODIUM CHLORIDE FLUSH 10ML SYR IVF SCH ×2 (09:45→21:19)
[2016-09-14 20:00] VITALS: BP 195/82
[2016-09-14] MEDS: NICOTINE 7 MG/24 HR PATCH.TD24 TD SCH (21:00)
[2016-09-14] MEDS: ATORVASTATIN 40 MG TABLET PO SCH (21:17)
[2016-09-15] MEDS: hydrALAzine 20 MG/ML, 1ML IV PRN (01:49)
[2016-09-15 02:00] VITALS: BP 183/91
[2016-09-15 04:53] LABS: BLOOD UREA NITROGEN 41 mg/dL (7-18)
[2016-09-15 04:56] LABS: ASPARTATE AMINO TRANSFERASE 10 U/L (15-37)
[2016-09-15 04:58] LABS: HEMATOCRIT 29.7 % (34.6-47.8); HEMOGLOBIN 9.5 g/dL (11.7-16.4); WHITE BLOOD COUNT 8.7 x10^3/uL (3.4-10)
[2016-09-15] MEDS: ASPIRIN 81 MG TABLET CHEW PO SCH (05:13)
[2016-09-15] MEDS: ALBUTEROL/IPRATROPIUM 2.5MG/0.5MG, 3 ML NPPB SCH ×5 (06:00→22:20)
[2016-09-15 08:57] VITALS: BP 166/80
[2016-09-15] MEDS: CEFTRIAXONE PMX 1GM/50ML 50 ML IV SCH (08:59)
[2016-09-15] MEDS: SODIUM CHLORIDE FLUSH 10ML SYR IVF SCH ×2 (09:00→21:00)
[2016-09-15] MEDS: FERROUS SULFATE 220 MG/5 ML ORAL SOL GT SCH ×2 (09:00→21:00)
[2016-09-15] MEDS: TUDORZA 400 MCG IH SCH ×2 (09:00→21:00)
[2016-09-15] MEDS: ADVAIR IH SCH ×2 (09:00→21:00)
[2016-09-15] MEDS: DILTIAZEM 60 MG TABLET PO SCH ×3 (09:01→21:00)
[2016-09-15] MEDS: TERAZOSIN 2MG CAPSULE PO SCH (09:01)
[2016-09-15] MEDS: AMLODIPINE 5 MG TABLET PO SCH (09:01)
[2016-09-15] MEDS: PAROXETINE 10 MG TABLET PO SCH (09:01)
[2016-09-15] MEDS: CLOPIDOGREL 75 MG TABLET PO SCH (09:02)
[2016-09-15] MEDS: ENOXAPARIN 40 MG/0.4 ML SQ SCH (09:02)
[2016-09-15] MEDS: methylPREDNISolone SOD SUCC 125 MG/2 ML IVPush SCH ×2 (09:03→22:00)
[2016-09-15] MEDS: CIPROFLOXACIN/PMX 400MG/200ML 200 ML IV SCH (11:34)
[2016-09-15 13:55] VITALS: BP 177/79
[2016-09-15 20:51] VITALS: BP 188/76
[2016-09-15] MEDS: ATORVASTATIN 40 MG TABLET PO SCH (21:00)
[2016-09-15] MEDS: NICOTINE 7 MG/24 HR PATCH.TD24 TD SCH (21:00)
[2016-09-16] MEDS: CIPROFLOXACIN/PMX 400MG/200ML 200 ML IV SCH ×3 (00:19→23:43)
[2016-09-16 01:56] VITALS: BP_SYST 178; BP_SYST 195; BP_SYST 208; BP_DIAS 75; BP_DIAS 77; BP_DIAS 93
[2016-09-16 05:58] LABS: HEMATOCRIT 25.8 % (34.6-47.8); HEMOGLOBIN 8.4 g/dL (11.7-16.4); WHITE BLOOD COUNT 8.8 x10^3/uL (3.4-10)
[2016-09-16 06:11] LABS: BLOOD UREA NITROGEN 52 mg/dL (7-18)
[2016-09-16] MEDS: ALBUTEROL/IPRATROPIUM 2.5MG/0.5MG, 3 ML NPPB SCH ×5 (06:27→22:00)
[2016-09-16 06:32] VITALS: BP 151/65
[2016-09-16] MEDS: ASPIRIN 81 MG TABLET CHEW PO SCH (06:35)
[2016-09-16] MEDS: TUDORZA 400 MCG IH SCH ×2 (09:00→21:00)
[2016-09-16] MEDS: ENOXAPARIN 40 MG/0.4 ML SQ SCH ×2 (09:00→09:44)
[2016-09-16] MEDS: ADVAIR IH SCH ×2 (09:00→21:00)
[2016-09-16] MEDS: CEFTRIAXONE PMX 1GM/50ML 50 ML IV SCH (09:39)
[2016-09-16] MEDS: FERROUS SULFATE 220 MG/5 ML ORAL SOL GT SCH ×2 (09:40→21:40)
[2016-09-16] MEDS: FUROSEMIDE 40 MG/4 ML IV SCH ×2 (09:41→21:42)
[2016-09-16] MEDS: SODIUM CHLORIDE FLUSH 10ML SYR IVF SCH ×2 (09:41→21:42)
[2016-09-16] MEDS: DILTIAZEM 60 MG TABLET PO SCH ×3 (09:42→21:43)
[2016-09-16] MEDS: CLOPIDOGREL 75 MG TABLET PO SCH (09:43)
[2016-09-16] MEDS: AMLODIPINE 5 MG TABLET PO SCH (09:43)
[2016-09-16] MEDS: TERAZOSIN 2MG CAPSULE PO SCH (09:43)
[2016-09-16] MEDS: PAROXETINE 10 MG TABLET PO SCH (09:44)
[2016-09-16] MEDS: methylPREDNISolone SOD SUCC 125 MG/2 ML IVPush SCH (11:31)
[2016-09-16 14:40] VITALS: BP 163/83
[2016-09-16 16:34] VITALS: BP 167/78
[2016-09-16] MEDS: POLYETHYLENE GLYCOL 17 GM PACKET PO PRN (16:35)
[2016-09-16 18:40] VITALS: BP_SYST 167; BP_SYST 170; BP_DIAS 68; BP_DIAS 70
[2016-09-16] MEDS: NICOTINE 7 MG/24 HR PATCH.TD24 TD SCH (21:00)
[2016-09-16] MEDS: ATORVASTATIN 40 MG TABLET PO SCH (21:43)
[2016-09-16 23:49] VITALS: BP 162/62
[2016-09-16] MEDS: hydrALAzine 20 MG/ML, 1ML IV PRN (23:50)
[2016-09-17 02:34] VITALS: BP 154/70
[2016-09-17 05:33] LABS: HEMATOCRIT 25.5 % (34.6-47.8); HEMOGLOBIN 8.1 g/dL (11.7-16.4); WHITE BLOOD COUNT 9.5 x10^3/uL (3.4-10)
[2016-09-17] MEDS: ALBUTEROL/IPRATROPIUM 2.5MG/0.5MG, 3 ML NPPB SCH ×5 (06:00→22:00)
[2016-09-17 06:05] LABS: ASPARTATE AMINO TRANSFERASE 7 U/L (15-37); BLOOD UREA NITROGEN 55 mg/dL (7-18)
[2016-09-17] MEDS: ASPIRIN 81 MG TABLET CHEW PO SCH (06:12)
[2016-09-17] MEDS: CEFTRIAXONE PMX 1GM/50ML 50 ML IV SCH (07:00)
[2016-09-17 07:35] VITALS: BP 171/69
[2016-09-17] MEDS: AMLODIPINE 5 MG TABLET PO SCH (08:47)
[2016-09-17] MEDS: PAROXETINE 10 MG TABLET PO SCH (08:47)
[2016-09-17] MEDS: CLOPIDOGREL 75 MG TABLET PO SCH (08:47)
[2016-09-17] MEDS: ADVAIR IH SCH ×2 (08:47→21:00)
[2016-09-17] MEDS: FUROSEMIDE 40 MG/4 ML IV SCH ×2 (08:48→21:18)
[2016-09-17] MEDS: FERROUS SULFATE 220 MG/5 ML ORAL SOL GT SCH ×2 (08:48→21:17)
[2016-09-17] MEDS: TERAZOSIN 2MG CAPSULE PO SCH (08:48)
[2016-09-17] MEDS: TUDORZA 400 MCG IH SCH ×2 (08:48→21:00)
[2016-09-17] MEDS: DILTIAZEM 60 MG TABLET PO SCH ×3 (08:48→21:17)
[2016-09-17] MEDS: ENOXAPARIN 40 MG/0.4 ML SQ SCH (08:49)
[2016-09-17] MEDS: SODIUM CHLORIDE FLUSH 10ML SYR IVF SCH ×2 (08:49→21:19)
[2016-09-17] MEDS: CIPROFLOXACIN/PMX 400MG/200ML 200 ML IV SCH ×2 (11:50→23:59)
[2016-09-17] MEDS: POLYETHYLENE GLYCOL 17 GM PACKET PO PRN (11:50)
[2016-09-17] MEDS: TAMSULOSIN 0.4 MG CAP.ER.24H PO SCH (11:50)
[2016-09-17 12:28] VITALS: BP 161/69
[2016-09-17 19:32] VITALS: BP 159/70
[2016-09-17] MEDS: NICOTINE 7 MG/24 HR PATCH.TD24 TD SCH (21:00)
[2016-09-17] MEDS: ATORVASTATIN 40 MG TABLET PO SCH (21:17)
[2016-09-18 02:08] VITALS: BP 148/73
[2016-09-18 05:20] LABS: HEMOGLOBIN 7.4 g/dL (11.7-16.4); WHITE BLOOD COUNT 10.9 x10^3/uL (3.4-10)
[2016-09-18 05:38] LABS: ASPARTATE AMINO TRANSFERASE 12 U/L (15-37); BLOOD UREA NITROGEN 54 mg/dL (7-18)
[2016-09-18 06:33] VITALS: BP 169/80
[2016-09-18] MEDS: CEFTRIAXONE PMX 1GM/50ML 50 ML IV SCH (06:33)
[2016-09-18] MEDS: ASPIRIN 81 MG TABLET CHEW PO SCH (06:34)
[2016-09-18 06:58] VITALS: BP 158/73
[2016-09-18] MEDS: ALBUTEROL/IPRATROPIUM 2.5MG/0.5MG, 3 ML NPPB SCH ×5 (07:10→21:13)
[2016-09-18] MEDS: FUROSEMIDE 40 MG/4 ML IV SCH ×2 (08:48→20:33)
[2016-09-18] MEDS: ENOXAPARIN 40 MG/0.4 ML SQ SCH (08:48)
[2016-09-18] MEDS: FERROUS SULFATE 220 MG/5 ML ORAL SOL GT SCH ×2 (08:48→20:33)
[2016-09-18] MEDS: ADVAIR IH SCH ×2 (08:49→20:34)
[2016-09-18] MEDS: TERAZOSIN 2MG CAPSULE PO SCH (08:49)
[2016-09-18] MEDS: TAMSULOSIN 0.4 MG CAP.ER.24H PO SCH (08:49)
[2016-09-18] MEDS: AMLODIPINE 5 MG TABLET PO SCH (08:49)
[2016-09-18] MEDS: DILTIAZEM 60 MG TABLET PO SCH ×3 (08:49→20:32)
[2016-09-18] MEDS: CLOPIDOGREL 75 MG TABLET PO SCH (08:49)
[2016-09-18] MEDS: TUDORZA 400 MCG IH SCH ×2 (08:50→20:34)
[2016-09-18] MEDS: SODIUM CHLORIDE FLUSH 10ML SYR IVF SCH ×2 (08:50→20:33)
[2016-09-18] MEDS: PAROXETINE 10 MG TABLET PO SCH (08:57)
[2016-09-18] MEDS: CIPROFLOXACIN/PMX 400MG/200ML 200 ML IV SCH (11:13)
[2016-09-18 12:51] VITALS: BP 142/69
[2016-09-18] MEDS ORDERED: ACETAMINOPHEN 325 MG TABLET PO PRN (15:30)
[2016-09-18] MEDS ORDERED: POLYETHYLENE GLYCOL 17 GM PACKET PO PRN (15:30)
[2016-09-18] MEDS ORDERED: ALBUTEROL/IPRATROPIUM 2.5MG/0.5MG, 3 ML NPPB PRN (15:30)
[2016-09-18 18:58] VITALS: BP 137/73
[2016-09-18] MEDS: ATORVASTATIN 40 MG TABLET PO SCH (20:33)
[2016-09-18] MEDS: NICOTINE 7 MG/24 HR PATCH.TD24 TD SCH (20:34)
[2016-09-19] VITALS (8 sets, daily range): BP systolic 120–150; BP diastolic 60–79
[2016-09-19] MEDS: CIPROFLOXACIN/PMX 400MG/200ML 200 ML IV SCH ×2 (00:39→11:19)
[2016-09-19] MEDS: ASPIRIN 81 MG TABLET CHEW PO SCH (05:40)
[2016-09-19] MEDS: ALBUTEROL/IPRATROPIUM 2.5MG/0.5MG, 3 ML NPPB SCH ×5 (06:00→22:45)
[2016-09-19] MEDS: CEFTRIAXONE PMX 1GM/50ML 50 ML IV SCH (06:18)
[2016-09-19] MEDS: ADVAIR IH SCH ×2 (09:00→21:00)
[2016-09-19] MEDS: TUDORZA 400 MCG IH SCH ×2 (09:00→21:00)
[2016-09-19] MEDS: FUROSEMIDE 40 MG/4 ML IV SCH ×2 (09:06→21:00)
[2016-09-19] MEDS: ENOXAPARIN 40 MG/0.4 ML SQ SCH (09:06)
[2016-09-19] MEDS: FERROUS SULFATE 220 MG/5 ML ORAL SOL GT SCH ×2 (09:13→21:00)
[2016-09-19] MEDS: CLOPIDOGREL 75 MG TABLET PO SCH (09:15)
[2016-09-19] MEDS: ERGOCALCIFEROL 50,000 UNIT CAPSULE PO SCH (09:15)
[2016-09-19] MEDS: PAROXETINE 10 MG TABLET PO SCH (09:15)
[2016-09-19] MEDS: TAMSULOSIN 0.4 MG CAP.ER.24H PO SCH (09:16)
[2016-09-19] MEDS: AMLODIPINE 5 MG TABLET PO SCH (09:16)
[2016-09-19] MEDS: DILTIAZEM 60 MG TABLET PO SCH ×3 (09:16→21:00)
[2016-09-19] MEDS: TERAZOSIN 2MG CAPSULE PO SCH (09:16)
[2016-09-19] MEDS: SODIUM CHLORIDE FLUSH 10ML SYR IVF SCH ×2 (09:16→21:00)
[2016-09-19 17:14] LABS: BLOOD UREA NITROGEN 41 mg/dL (7-18)
[2016-09-19 17:18] LABS: ASPARTATE AMINO TRANSFERASE 17 U/L (15-37)
[2016-09-19 17:39] LABS: WHITE BLOOD COUNT 10.3 x10^3/uL (3.4-10)
[2016-09-19 17:40] LABS: HEMATOCRIT 19.8 % (34.6-47.8); HEMOGLOBIN 6.4 g/dL (11.7-16.4)
[2016-09-19] MEDS ORDERED: POTASSIUM CHLORIDE 20 MEQ TAB.ER.PRT PO ONE (18:00)
[2016-09-19] MEDS ORDERED: PANTOPRAZOLE 40 MG IV IVPush SCH (18:00)
[2016-09-19 18:29] LABS: DIFF TOTAL CELLS COUNTED 100 CELL DIFF
[2016-09-19 18:31] LABS: VERIFY COUNTS? YES
[2016-09-19 18:32] LABS: ANISOCYTOSIS 1+; OVALOCYTES 1+; POLYCHROMASIA 1+
[2016-09-19] MEDS: NICOTINE 7 MG/24 HR PATCH.TD24 TD SCH (21:00)
[2016-09-19] MEDS: ATORVASTATIN 40 MG TABLET PO SCH (21:00)
[2016-09-19] MEDS ORDERED: PANTOPRAZOLE 80 MG in SODIUM CHLORIDE 0.9% 50 ML IV ONE (23:30)
[2016-09-19] MEDS ORDERED: PANTOPRAZOLE 80 MG in SODIUM CHLORIDE 0.9% 100 ML IV SCH (23:30)
[2016-09-20] VITALS (14 sets, daily range): BP systolic 124–164; BP diastolic 67–80
[2016-09-20] MEDS: CIPROFLOXACIN/PMX 400MG/200ML 200 ML IV SCH ×2 (03:49→13:11)
[2016-09-20] MEDS: PANTOPRAZOLE 80 MG in SODIUM CHLORIDE 0.9% 100 ML IV SCH ×2 (03:49→14:13)
[2016-09-20 04:53] LABS: WHITE BLOOD COUNT 8.8 x10^3/uL (3.4-10)
[2016-09-20 04:54] LABS: BLOOD UREA NITROGEN 39 mg/dL (7-18)
[2016-09-20 04:57] LABS: HEMATOCRIT 20.5 % (34.6-47.8); HEMOGLOBIN 6.5 g/dL (11.7-16.4)
[2016-09-20] MEDS: ALBUTEROL/IPRATROPIUM 2.5MG/0.5MG, 3 ML NPPB SCH ×5 (08:25→22:00)
[2016-09-20] MEDS: TUDORZA 400 MCG IH SCH ×2 (09:44→21:00)
[2016-09-20] MEDS: ADVAIR IH SCH ×2 (09:44→21:00)
[2016-09-20] MEDS: FUROSEMIDE 40 MG/4 ML IV SCH ×2 (09:44→21:00)
[2016-09-20] MEDS: FERROUS SULFATE 220 MG/5 ML ORAL SOL GT SCH ×2 (09:44→21:00)
[2016-09-20] MEDS: PAROXETINE 10 MG TABLET PO SCH (09:45)
[2016-09-20] MEDS: TERAZOSIN 2MG CAPSULE PO SCH (09:45)
[2016-09-20] MEDS: TAMSULOSIN 0.4 MG CAP.ER.24H PO SCH (09:45)
[2016-09-20] MEDS: DILTIAZEM 60 MG TABLET PO SCH ×3 (09:59→21:00)
[2016-09-20] MEDS: SODIUM CHLORIDE FLUSH 10ML SYR IVF SCH ×2 (09:59→21:00)
[2016-09-20] MEDS: AMLODIPINE 5 MG TABLET PO SCH (09:59)
[2016-09-20] MEDS: CEFTRIAXONE PMX 1GM/50ML 50 ML IV SCH (09:59)
[2016-09-20 10:15] LABS: HEMATOCRIT 24.2 % (34.6-47.8); HEMOGLOBIN 8.1 g/dL (11.7-16.4)
[2016-09-20 13:55] LABS: TOTAL IRON BINDING CAPACITY 260 mcg/dL (250-450)
[2016-09-20] MEDS ORDERED: PROPOFOL 10 MG/ML, 20ML ONE (16:13)
[2016-09-20 16:21] LABS: HEMATOCRIT 20.2 % (34.6-47.8); HEMOGLOBIN 6.7 g/dL (11.7-16.4)
[2016-09-20] MEDS ORDERED: ONDANSETRON 2MG/ML, 2ML IVPush PRN (16:30)
[2016-09-20] MEDS ORDERED: OXYcodone 5 MG/5 ML ORAL.SOL UDC PO PRN (16:30)
[2016-09-20] MEDS ORDERED: hydrALAzine 20 MG/ML, 1ML IV PRN (16:30)
[2016-09-20] MEDS ORDERED: FENTANYL PF 100 MCG/2ML IV PRN (16:30)
[2016-09-20] MEDS ORDERED: LABETALOL 5MG/ML, 20ML IV PRN (16:30)
[2016-09-20] MEDS ORDERED: HYDROmorphone 1 MG/ML, 1ML IV PRN (16:30)
[2016-09-20] MEDS ORDERED: FUROSEMIDE 20 MG/2 ML IV ONE (20:00)
[2016-09-20] MEDS: NICOTINE 7 MG/24 HR PATCH.TD24 TD SCH (21:00)
[2016-09-20] MEDS: ATORVASTATIN 40 MG TABLET PO SCH (21:00)
[2016-09-20 22:53] LABS: HEMATOCRIT 21.5 % (34.6-47.8); HEMOGLOBIN 6.8 g/dL (11.7-16.4)
[2016-09-21] VITALS (12 sets, daily range): BP systolic 133–180; BP diastolic 51–85
[2016-09-21] MEDS: PANTOPRAZOLE 80 MG in SODIUM CHLORIDE 0.9% 100 ML IV SCH ×2 (03:48→14:51)
[2016-09-21] MEDS: CIPROFLOXACIN/PMX 400MG/200ML 200 ML IV SCH ×3 (03:48→23:50)
[2016-09-21] MEDS: hydrALAzine 20 MG/ML, 1ML IV PRN ×2 (03:50→11:58)
[2016-09-21 04:58] LABS: HEMATOCRIT 31.9 % (34.6-47.8); HEMOGLOBIN 10.6 g/dL (11.7-16.4)
[2016-09-21] MEDS: ALBUTEROL/IPRATROPIUM 2.5MG/0.5MG, 3 ML NPPB SCH ×5 (08:02→22:00)
[2016-09-21] MEDS: AMLODIPINE 5 MG TABLET PO SCH (09:10)
[2016-09-21] MEDS: FUROSEMIDE 40 MG/4 ML IV SCH ×2 (09:10→22:21)
[2016-09-21] MEDS: TUDORZA 400 MCG IH SCH ×2 (09:11→21:00)
[2016-09-21] MEDS: DILTIAZEM 60 MG TABLET PO SCH ×3 (09:11→22:20)
[2016-09-21] MEDS: SODIUM CHLORIDE FLUSH 10ML SYR IVF SCH ×2 (09:11→22:21)
[2016-09-21] MEDS: CEFTRIAXONE PMX 1GM/50ML 50 ML IV SCH (10:27)
[2016-09-21] MEDS: TAMSULOSIN 0.4 MG CAP.ER.24H PO SCH (10:27)
[2016-09-21] MEDS: ADVAIR IH SCH ×2 (10:27→21:00)
[2016-09-21] MEDS: TERAZOSIN 2MG CAPSULE PO SCH (10:27)
[2016-09-21] MEDS: FERROUS SULFATE 220 MG/5 ML ORAL SOL GT SCH ×2 (10:27→21:00)
[2016-09-21] MEDS: PAROXETINE 10 MG TABLET PO SCH (10:28)
[2016-09-21 12:14] LABS: BLOOD UREA NITROGEN 27 mg/dL (7-18)
[2016-09-21 12:34] LABS: HEMATOCRIT 32.5 % (34.6-47.8); HEMOGLOBIN 10.8 g/dL (11.7-16.4); WHITE BLOOD COUNT 8.5 x10^3/uL (3.4-10)
[2016-09-21 19:55] LABS: HEMATOCRIT 31.4 % (34.6-47.8); HEMOGLOBIN 10.3 g/dL (11.7-16.4)
[2016-09-21] MEDS: NICOTINE 7 MG/24 HR PATCH.TD24 TD SCH (21:00)
[2016-09-21] MEDS: ATORVASTATIN 40 MG TABLET PO SCH (22:20)
[2016-09-22 02:40] VITALS: BP 141/72
[2016-09-22] MEDS: PANTOPRAZOLE 80 MG in SODIUM CHLORIDE 0.9% 100 ML IV SCH (04:36)
[2016-09-22 05:33] LABS: HEMATOCRIT 30.7 % (34.6-47.8); HEMOGLOBIN 10.2 g/dL (11.7-16.4); WHITE BLOOD COUNT 7.1 x10^3/uL (3.4-10)
[2016-09-22 05:41] LABS: BLOOD UREA NITROGEN 21 mg/dL (7-18)
[2016-09-22] MEDS ORDERED: POTASSIUM CHLORIDE 40 MEQ in SODIUM CHLORIDE 0.9% 500 ML IV ONE (06:30)
[2016-09-22] MEDS: ALBUTEROL/IPRATROPIUM 2.5MG/0.5MG, 3 ML NPPB SCH ×5 (06:55→22:00)
[2016-09-22 08:00] VITALS: BP 150/69
[2016-09-22] MEDS: ADVAIR IH SCH ×2 (09:00→20:25)
[2016-09-22] MEDS: SODIUM CHLORIDE FLUSH 10ML SYR IVF SCH ×2 (09:00→20:27)
[2016-09-22] MEDS: TUDORZA 400 MCG IH SCH ×2 (09:00→20:27)
[2016-09-22] MEDS: CEFTRIAXONE PMX 1GM/50ML 50 ML IV SCH (09:37)
[2016-09-22] MEDS: DILTIAZEM 60 MG TABLET PO SCH ×3 (09:42→20:26)
[2016-09-22] MEDS: TAMSULOSIN 0.4 MG CAP.ER.24H PO SCH (09:42)
[2016-09-22] MEDS: FERROUS SULFATE 220 MG/5 ML ORAL SOL GT SCH ×2 (09:43→20:25)
[2016-09-22] MEDS: PAROXETINE 10 MG TABLET PO SCH (09:43)
[2016-09-22] MEDS: TERAZOSIN 2MG CAPSULE PO SCH (09:43)
[2016-09-22] MEDS: AMLODIPINE 5 MG TABLET PO SCH (09:43)
[2016-09-22] MEDS: FUROSEMIDE 40 MG/4 ML IV SCH ×2 (09:44→20:26)
[2016-09-22] MEDS: CIPROFLOXACIN/PMX 400MG/200ML 200 ML IV SCH (11:11)
[2016-09-22 11:56] LABS: ABG COLLECTION SITE RIGHT RADIAL; COLLATERAL CIRCULATION TESTING NORMAL
[2016-09-22 13:20] VITALS: BP 166/74
[2016-09-22] MEDS ORDERED: PANTOPRAZOLE 80 MG in SODIUM CHLORIDE 0.9% 100 ML IV SCH (14:00)
[2016-09-22] MEDS: PANTOPRAZOLE 40 MG IV IVPush SCH (15:34)
[2016-09-22 19:09] VITALS: BP 149/64
[2016-09-22] MEDS: ATORVASTATIN 40 MG TABLET PO SCH (20:26)
[2016-09-22] MEDS: NICOTINE 7 MG/24 HR PATCH.TD24 TD SCH (20:27)
[2016-09-23] MEDS: CIPROFLOXACIN/PMX 400MG/200ML 200 ML IV SCH (00:10)
[2016-09-23 02:49] VITALS: BP 154/71
[2016-09-23] MEDS: PANTOPRAZOLE 40 MG IV IVPush SCH (05:45)
[2016-09-23] MEDS: ALBUTEROL/IPRATROPIUM 2.5MG/0.5MG, 3 ML NPPB SCH ×3 (06:00→12:18)
[2016-09-23 06:02] LABS: HEMOGLOBIN 9.5 g/dL (11.7-16.4); WHITE BLOOD COUNT 4.8 x10^3/uL (3.4-10)
[2016-09-23 06:17] LABS: BLOOD UREA NITROGEN 17 mg/dL (7-18)
[2016-09-23 06:36] VITALS: BP 153/78
[2016-09-23 08:22] LABS: ABG COLLECTION SITE RIGHT BRACHIAL; COLLATERAL CIRCULATION TESTING NORMAL
[2016-09-23] MEDS: DILTIAZEM 60 MG TABLET PO SCH (08:43)
[2016-09-23] MEDS: AMLODIPINE 5 MG TABLET PO SCH (08:45)
[2016-09-23] MEDS: SODIUM CHLORIDE FLUSH 10ML SYR IVF SCH (08:45)
[2016-09-23] MEDS: TUDORZA 400 MCG IH SCH (08:46)
[2016-09-23] MEDS: TERAZOSIN 2MG CAPSULE PO SCH (08:48)
[2016-09-23] MEDS: FERROUS SULFATE 220 MG/5 ML ORAL SOL GT SCH (08:48)
[2016-09-23] MEDS: ADVAIR IH SCH (08:49)
[2016-09-23] MEDS: TAMSULOSIN 0.4 MG CAP.ER.24H PO SCH (08:50)
[2016-09-23] MEDS: PAROXETINE 10 MG TABLET PO SCH (08:51)
[2016-09-23] MEDS: FUROSEMIDE 40 MG/4 ML IV SCH (09:00)
[2016-09-23] MEDS ORDERED: POTASSIUM CHLORIDE 10% 40 MEQ/30 ML UDC PO SCH (09:00)
[2016-09-23] MEDS ORDERED: POTASSIUM CHLORIDE 20 MEQ TAB.ER.PRT PO SCH (09:00)
[2016-09-23] MEDS ORDERED: AMLO5TAB2 PO (14:38)
[2016-09-23] MEDS ORDERED: TAMS-11 PO (14:38)
[2016-09-23] MEDS ORDERED: TUDORZA IH (14:38)
[2016-09-23] MEDS ORDERED: HYDR-3341 PO (14:38)
[2016-09-23] MEDS ORDERED: POTA20TA6 PO (14:38)
[2016-09-23] MEDS ORDERED: PRED10TA PO (14:38)
[2016-09-23] MEDS ORDERED: DILT60TA27 PO (14:38)
[2016-09-23] MEDS ORDERED: ERGO500017 PO (14:38)
[2016-09-23 14:40] VITALS: BP 155/73
== END 2016-09-23 15:12 | DRG 207 ==
LOC: ED 05:21 → EDIP 06:11 → CCU 08:05 → 4EST 09-14 15:32
PROVIDERS: ADMIT Hospitalist; ATTEND Hospitalist
PROC: 5A1955Z Respiratory Ventilation, Greater than 96 Consecutive Hours (ICD-10-PCS; principal; 2016-09-03)
PROC: 0BH17EZ Insertion of Endotracheal Airway into Trachea, Via Natural or Artificial Opening (ICD-10-PCS; 2016-09-03)
PROC: 0BP1XDZ Removal of Intraluminal Device from Trachea, External Approach (ICD-10-PCS; 2016-09-07)
PROC: 5A1945Z Respiratory Ventilation, 24-96 Consecutive Hours (ICD-10-PCS; 2016-09-08)
PROC: 02HV33Z Insertion of Infusion Device into Superior Vena Cava, Percutaneous Approach (ICD-10-PCS; 2016-09-12)
PROC: B548ZZA Ultrasonography of Superior Vena Cava, Guidance (ICD-10-PCS; 2016-09-12)
PROC: 5A1D60Z (ICD-10-PCS; 2016-09-12)
PROC: 30233N1 Transfusion of Nonautologous Red Blood Cells into Peripheral Vein, Percutaneous Approach (ICD-10-PCS; 2016-09-13)
PROC: 0W3P8ZZ Control Bleeding in Gastrointestinal Tract, Via Natural or Artificial Opening Endoscopic (ICD-10-PCS; 2016-09-20)
DX: J96.21 Acute and chronic respiratory failure with hypoxia (principal); E43 Unspecified severe protein-calorie malnutrition; I50.30 Unspecified diastolic (congestive) heart failure; E87.2 Acidosis; I13.0 Hypertensive heart and chronic kidney disease with heart failure and stage 1 through stage 4 chronic kidney disease, or unspecified chronic kidney disease; J44.1 Chronic obstructive pulmonary disease with (acute) exacerbation; K92.2 Gastrointestinal hemorrhage, unspecified; N17.9 Acute kidney failure, unspecified; Z99.11 Dependence on respirator [ventilator] status; D50.9 Iron deficiency anemia, unspecified; E66.01 Morbid (severe) obesity due to excess calories; Z68.35 Body mass index [BMI] 35.0-35.9, adult; F32.9 Major depressive disorder, single episode, unspecified; E78.00 Pure hypercholesterolemia, unspecified; E78.5 Hyperlipidemia, unspecified; E87.5 Hyperkalemia; F17.200 Nicotine dependence, unspecified, uncomplicated; F41.9 Anxiety disorder, unspecified; G47.33 Obstructive sleep apnea (adult) (pediatric); H91.90 Unspecified hearing loss, unspecified ear; I16.0 Hypertensive urgency; N18.2 Chronic kidney disease, stage 2 (mild); I25.10 Atherosclerotic heart disease of native coronary artery without angina pectoris; I25.2 Old myocardial infarction; I27.81 Cor pulmonale (chronic); I34.0 Nonrheumatic mitral (valve) insufficiency; I73.9 Peripheral vascular disease, unspecified; K59.00 Constipation, unspecified; N14.1 Nephropathy induced by other drugs, medicaments and biological substances; T50.8X5A Adverse effect of diagnostic agents, initial encounter; W19.XXXA Unspecified fall, initial encounter; Z51.5 Encounter for palliative care; Z66 Do not resuscitate; Z80.1 Family history of malignant neoplasm of trachea, bronchus and lung; Z86.73 Personal history of transient ischemic attack (TIA), and cerebral infarction without residual deficits; Z86.79 Personal history of other diseases of the circulatory system; Z99.81 Dependence on supplemental oxygen; Z88.6 Allergy status to analgesic agent; Z88.1 Allergy status to other antibiotic agents; Z88.8 Allergy status to other drugs, medicaments and biological substances
CPT/HCPCS: 31500; 36415; 36556; 36600; 51702; 70450; 71010; 71260; 74176; 74230; 76937; 77001; 80048; 80053; 80069; 81001; 82140; 82306; 82436; 82550; 82570; 82728; 82803; 82805; 82962; 83540; 83550; 83735; 83880; 83970; 84100; 84132; 84133; 84300; 84478; 84484; 84550; 85014; 85018; 85025; 85610; 86704; 86706; 86850; 86900; 86923; 87040; 87070; 87077; 87081; 87086; 87186; 87205; 87340; 93005; 93306; 94002; 94003; 94150; 94640; 94660; 96365; 96366; 96375; C1894; J0610; J0696; J0744; J1650; J1940; J2250; J2704; J3010; J3480; J7620; P9047; Q9967; C1751; C9113; J0360; J1642; J2060; J2930; J3475; J7030; J7040; J7050; J7512; P9016

== ENCOUNTER 2016-10-03 16:23 | Inpatient (IN) | payer MEDICARE, OTHER ==
[~2016-10-03] VITALS: Ht 165.1 cm; Wt 97.8 kg
[~2016-10-03 16:23] MED LIST changes: -ALBU8.5H3 INH; +ALBU8.5H8 INH; +AZIT500T5 PO; -AZIT500T77 PO; -CIME200T4 PO; +CIME200T6 PO; -CLOP75TA22 PO; +CLOP75TA52 PO; +DILT60TA27 PO; +DOCU-131 PO; -DOCU-30 PO; +ERGO500017 PO; +FERR325T18 PO; -FERR325T20 PO; +HYDR-3341 PO; +POTA20TA6 PO; +TAMS-11 PO; +TUDORZA IH
[2016-10-03] MEDS ORDERED: SODIUM CHLORIDE FLUSH 10ML SYR IVF ONE (17:00)
[2016-10-03] MEDS ORDERED: ALBUTEROL/IPRATROPIUM 2.5MG/0.5MG, 3 ML ONE (17:00)
[2016-10-03] MEDS ORDERED: ALBUTEROL SULFATE 2.5 MG/3 ML NPPB ONE (17:00)
[2016-10-03] MEDS ORDERED: ALBUTEROL/IPRATROPIUM 2.5MG/0.5MG, 3 ML NPPB ONE (17:00)
[2016-10-03] MEDS ORDERED: ALPR0.25 PO (17:16)
[2016-10-03] MEDS ORDERED: DIAZ5TAB PO (17:16)
[2016-10-03] MEDS ORDERED: SULF1TAB24 PO (17:16)
[2016-10-03] MEDS ORDERED: OMEP20TA62 PO (17:16)
[2016-10-03] MEDS ORDERED: FLUT1AER INH (17:16)
[2016-10-03 17:28] LABS: ASPARTATE AMINO TRANSFERASE 16 U/L (15-37); BLOOD UREA NITROGEN 25 mg/dL (7-18); DIFF TOTAL CELLS COUNTED 100 CELL DIFF
[2016-10-03 17:40] LABS: IS PT STATUS REG ER OR PRE ER? YES
[2016-10-03 17:41] LABS: WHITE BLOOD COUNT 1.7 x10^3/uL (3.4-10)
[2016-10-03 17:44] LABS: ANISOCYTOSIS 1+; POLYCHROMASIA 1+
[2016-10-03 17:45] LABS: HYPOCHROMIA 1+; VERIFY COUNTS? YES
[2016-10-03] MEDS ORDERED: INSULIN REGULAR 100 UNITS/ML, 3ML VIAL IVPush ONE (18:00)
[2016-10-03] MEDS ORDERED: DEXTROSE 50%, 50ML SYRINGE IVPush ONE (18:00)
[2016-10-03] MEDS ORDERED: DEXTROSE 50%, 50ML VIAL ONE (18:06)
[2016-10-03] MEDS: SODIUM CHLORIDE 0.9% 1,000 ML IV SCH ×2 (18:46→22:13)
[2016-10-03] MEDS ORDERED: ACETAMINOPHEN 325 MG TABLET PO PRN (19:00)
[2016-10-03] MEDS ORDERED: ONDANSETRON 2MG/ML, 2ML IVPush PRN (19:00)
[2016-10-03] MEDS ORDERED: hydrALAzine 20 MG/ML, 1ML IVPush PRN (19:00)
[2016-10-03] MEDS ORDERED: CALCIUM GLUCONATE 4.6 MEQ in SODIUM CHLORIDE 0.9% 50 ML IV ONE (19:00)
[2016-10-03] MEDS ORDERED: TEMAZEPAM 15 MG CAPSULE PO PRN (19:00)
[2016-10-03] MEDS ORDERED: DOCUSATE 100 MG CAPSULE PO PRN (19:00)
[2016-10-03 20:00] VITALS: BP 110/67
[2016-10-03 21:00] VITALS: BP 110/65
[2016-10-03] MEDS ORDERED: CARVEDILOL 12.5 MG TABLET PO SCH (21:00)
[2016-10-03] MEDS: DILTIAZEM 60 MG TABLET PO SCH (22:12)
[2016-10-03] MEDS: FERROUS SULFATE 325 MG TABLET PO SCH (22:12)
[2016-10-03] MEDS: HEPARIN 5,000 UNITS/ML, 1ML SQ SCH (22:22)
[2016-10-03] MEDS ORDERED: SODIUM POLYSTYRENE SULFONATE ORAL SUSP PO ONE (23:30)
[2016-10-04 02:00] VITALS: BP 130/64
[2016-10-04] MEDS: HEPARIN 5,000 UNITS/ML, 1ML SQ SCH ×3 (03:15→21:13)
[2016-10-04] MEDS ORDERED: DIAZEPAM 10 MG TABLET ONE ×2 (05:03→12:48)
[2016-10-04] MEDS: DIAZEPAM 5 MG TABLET PO PRN ×2 (05:05→12:53)
[2016-10-04 06:21] LABS: BLOOD UREA NITROGEN 26 mg/dL (7-18)
[2016-10-04 06:24] LABS: HEMATOCRIT 30.2 % (34.6-47.8); HEMOGLOBIN 9.7 g/dL (11.7-16.4)
[2016-10-04 06:30] LABS: WHITE BLOOD COUNT 1.7 x10^3/uL (3.4-10)
[2016-10-04 06:53] LABS: DIFF TOTAL CELLS COUNTED 100 CELL DIFF
[2016-10-04 06:57] LABS: VERIFY COUNTS? YES
[2016-10-04 06:58] LABS: ANISOCYTOSIS 1+; HYPOCHROMIA 1+; OVALOCYTES 1+; POLYCHROMASIA 1+
[2016-10-04 07:05] VITALS: BP 163/66
[2016-10-04] MEDS: ALBUTEROL/IPRATROPIUM 2.5MG/0.5MG, 3 ML NPPB SCH ×4 (07:15→19:46)
[2016-10-04] MEDS: PAROXETINE 10 MG TABLET PO SCH (11:02)
[2016-10-04] MEDS: AMLODIPINE 5 MG TABLET PO SCH (11:02)
[2016-10-04] MEDS: TERAZOSIN 1MG CAPSULE PO SCH (11:02)
[2016-10-04] MEDS: TAMSULOSIN 0.4 MG CAP.ER.24H PO SCH (11:03)
[2016-10-04] MEDS: OMEPRAZOLE 20 MG CAPSULE.DR PO SCH (11:03)
[2016-10-04] MEDS: FERROUS SULFATE 325 MG TABLET PO SCH ×2 (11:03→21:12)
[2016-10-04] MEDS: DILTIAZEM 60 MG TABLET PO SCH ×3 (11:04→21:13)
[2016-10-04] MEDS: SODIUM CHLORIDE 0.9% 1,000 ML IV SCH ×2 (11:04→21:20)
[2016-10-04 14:54] LABS: BLOOD UREA NITROGEN 23 mg/dL (7-18)
[2016-10-04 15:18] LABS: HEMATOCRIT 27.5 % (34.6-47.8); HEMOGLOBIN 8.6 g/dL (11.7-16.4)
[2016-10-04 15:19] LABS: DIFF TOTAL CELLS COUNTED 100 CELL DIFF
[2016-10-04 15:23] LABS: ANISOCYTOSIS 1+; VERIFY COUNTS? YES
[2016-10-04 15:24] LABS: HYPOCHROMIA 1+; MICROCYTOSIS 1+; POLYCHROMASIA 1+
[2016-10-04 15:32] VITALS: BP 136/68
[2016-10-04 19:05] VITALS: BP 139/67
[2016-10-04] MEDS: WINE PO SCH (19:30)
[2016-10-04] MEDS: DILTIAZEM 125 MG in SODIUM CHLORIDE 0.9% 100 ML IV SCH (22:54)
[2016-10-05] MEDS ORDERED: DIAZEPAM 10 MG TABLET ONE (00:49)
[2016-10-05] MEDS: DIAZEPAM 5 MG TABLET PO PRN (00:52)
[2016-10-05] MEDS: HEPARIN 5,000 UNITS/ML, 1ML SQ SCH ×3 (03:00→21:03)
[2016-10-05 03:11] VITALS: BP 124/70
[2016-10-05] MEDS: SODIUM CHLORIDE 0.9% 1,000 ML IV SCH (05:34)
[2016-10-05 06:35] LABS: HEMATOCRIT 28.9 % (34.6-47.8); HEMOGLOBIN 9.3 g/dL (11.7-16.4)
[2016-10-05 06:45] LABS: ASPARTATE AMINO TRANSFERASE 11 U/L (15-37); BLOOD UREA NITROGEN 20 mg/dL (7-18); FERRITIN 158.2 ng/mL (8-252); TOTAL IRON BINDING CAPACITY 195 mcg/dL (250-450)
[2016-10-05 07:05] LABS: DIFF TOTAL CELLS COUNTED 100 CELL DIFF
[2016-10-05 07:10] LABS: ANISOCYTOSIS 1+; VERIFY COUNTS? YES
[2016-10-05 07:11] LABS: OVALOCYTES 1+; POIKILOCYTOSIS 1+; POLYCHROMASIA 1+
[2016-10-05] MEDS: ALBUTEROL/IPRATROPIUM 2.5MG/0.5MG, 3 ML NPPB SCH ×4 (07:40→18:48)
[2016-10-05 07:58] VITALS: BP 128/67
[2016-10-05 08:30] VITALS: BP 113/62
[2016-10-05] MEDS: FUROSEMIDE 40 MG/4 ML IV SCH ×2 (08:59→18:43)
[2016-10-05] MEDS: DILTIAZEM 125 MG in SODIUM CHLORIDE 0.9% 100 ML IV SCH ×2 (10:27→22:50)
[2016-10-05] MEDS: TERAZOSIN 1MG CAPSULE PO SCH (10:29)
[2016-10-05] MEDS: OMEPRAZOLE 20 MG CAPSULE.DR PO SCH (10:29)
[2016-10-05] MEDS: AMLODIPINE 5 MG TABLET PO SCH (10:29)
[2016-10-05] MEDS: PAROXETINE 10 MG TABLET PO SCH (10:29)
[2016-10-05] MEDS: TAMSULOSIN 0.4 MG CAP.ER.24H PO SCH (10:29)
[2016-10-05] MEDS: FERROUS SULFATE 325 MG TABLET PO SCH ×2 (10:29→21:02)
[2016-10-05] MEDS: WINE PO SCH ×2 (12:54→17:34)
[2016-10-05] MEDS: ERGOCALCIFEROL 50,000 UNIT CAPSULE PO SCH (12:54)
[2016-10-05 14:20] VITALS: BP 121/65
[2016-10-05 21:01] VITALS: BP 137/78
[2016-10-06] MEDS: HEPARIN 5,000 UNITS/ML, 1ML SQ SCH ×3 (04:59→20:43)
[2016-10-06 05:18] VITALS: BP 136/81
[2016-10-06 05:35] LABS: HEMATOCRIT 27.2 % (34.6-47.8); HEMOGLOBIN 8.8 g/dL (11.7-16.4); WHITE BLOOD COUNT 2.3 x10^3/uL (3.4-10)
[2016-10-06 05:47] LABS: BLOOD UREA NITROGEN 20 mg/dL (7-18)
[2016-10-06 06:05] LABS: DIFF TOTAL CELLS COUNTED 100 CELL DIFF
[2016-10-06 06:10] LABS: ANISOCYTOSIS 1+; POIKILOCYTOSIS 1+; POLYCHROMASIA 1+; VERIFY COUNTS? YES
[2016-10-06 06:11] LABS: OVALOCYTES 1+
[2016-10-06 06:28] VITALS: BP 112/56
[2016-10-06] MEDS: ALBUTEROL/IPRATROPIUM 2.5MG/0.5MG, 3 ML NPPB SCH ×4 (07:40→19:40)
[2016-10-06] MEDS: FUROSEMIDE 40 MG/4 ML IV SCH ×2 (08:59→17:54)
[2016-10-06] MEDS: FERROUS SULFATE 325 MG TABLET PO SCH ×2 (09:00→20:42)
[2016-10-06] MEDS: OMEPRAZOLE 20 MG CAPSULE.DR PO SCH (09:00)
[2016-10-06] MEDS: PAROXETINE 10 MG TABLET PO SCH (09:00)
[2016-10-06] MEDS ORDERED: METOPROLOL TARTRATE 25 MG TABLET PO SCH (09:00)
[2016-10-06] MEDS: TERAZOSIN 1MG CAPSULE PO SCH (09:00)
[2016-10-06] MEDS: TAMSULOSIN 0.4 MG CAP.ER.24H PO SCH (09:00)
[2016-10-06] MEDS: AMLODIPINE 5 MG TABLET PO SCH (09:07)
[2016-10-06] MEDS: WINE PO SCH ×2 (12:45→17:54)
[2016-10-06] MEDS: DILTIAZEM 125 MG in SODIUM CHLORIDE 0.9% 100 ML IV SCH (13:32)
[2016-10-06 13:49] VITALS: BP 129/54
[2016-10-06 17:32] LABS: ANA SCREEN NEGATIVE (Negative)
[2016-10-06 20:14] VITALS: BP 136/69
[2016-10-06] MEDS: METOPROLOL TARTRATE 25 MG TABLET PO SCH (20:42)
[2016-10-07] MEDS ORDERED: MAGNESIUM SULFATE PMX 2GM/50ML 50 ML IV ONE (00:30)
[2016-10-07 02:00] VITALS: BP 141/70
[2016-10-07] MEDS: DILTIAZEM 125 MG in SODIUM CHLORIDE 0.9% 100 ML IV SCH ×2 (02:21→16:18)
[2016-10-07 04:35] LABS: OCCBLD OBC PASS
[2016-10-07] MEDS: HEPARIN 5,000 UNITS/ML, 1ML SQ SCH ×3 (05:06→22:14)
[2016-10-07 05:18] LABS: HEMATOCRIT 28.5 % (34.6-47.8); HEMOGLOBIN 9.1 g/dL (11.7-16.4); WHITE BLOOD COUNT 2.9 x10^3/uL (3.4-10)
[2016-10-07 05:28] LABS: ASPARTATE AMINO TRANSFERASE 7 U/L (15-37); BLOOD UREA NITROGEN 22 mg/dL (7-18)
[2016-10-07 06:05] LABS: DIFF TOTAL CELLS COUNTED 100 CELL DIFF
[2016-10-07 06:07] LABS: ANISOCYTOSIS 1+; OVALOCYTES 1+; POLYCHROMASIA 1+; VERIFY COUNTS? YES
[2016-10-07] MEDS: ALBUTEROL/IPRATROPIUM 2.5MG/0.5MG, 3 ML NPPB SCH ×4 (07:15→19:12)
[2016-10-07 07:25] VITALS: BP 132/82
[2016-10-07] MEDS: TAMSULOSIN 0.4 MG CAP.ER.24H PO SCH (09:10)
[2016-10-07] MEDS: FERROUS SULFATE 325 MG TABLET PO SCH ×2 (09:10→22:13)
[2016-10-07] MEDS: OMEPRAZOLE 20 MG CAPSULE.DR PO SCH (09:10)
[2016-10-07] MEDS: AMLODIPINE 5 MG TABLET PO SCH (09:10)
[2016-10-07] MEDS: METOPROLOL TARTRATE 25 MG TABLET PO SCH ×2 (09:10→22:14)
[2016-10-07] MEDS: PAROXETINE 10 MG TABLET PO SCH (09:10)
[2016-10-07] MEDS: FUROSEMIDE 40 MG/4 ML IV SCH (09:11)
[2016-10-07] MEDS: TERAZOSIN 1MG CAPSULE PO SCH (09:11)
[2016-10-07 12:06] LABS: A/G RATIO 1.3 (0.7-1.7); ALBUMIN 2.6 g/dL (2.9-4.4); ALPHA-1-GLOBULIN 0.2 g/dL (0.0-0.4); BETA GLOBULIN 0.7 g/dL (0.7-1.3); GAMMA GLOBULIN 0.4 g/dL (0.4-1.8); PROTEIN TOTAL 4.6 g/dL (6.0-8.5)
[2016-10-07] MEDS: WINE PO SCH ×2 (12:53→17:58)
[2016-10-07 13:36] VITALS: BP_SYST 108; BP_SYST 130; BP_DIAS 61; BP_DIAS 71
[2016-10-07 20:30] VITALS: BP 138/71
[2016-10-08 01:20] VITALS: BP 151/68
[2016-10-08 05:14] LABS: HEMOGLOBIN 9.4 g/dL (11.7-16.4)
[2016-10-08 05:25] LABS: BLOOD UREA NITROGEN 28 mg/dL (7-18)
[2016-10-08] MEDS: DILTIAZEM 125 MG in SODIUM CHLORIDE 0.9% 100 ML IV SCH ×2 (05:55→18:34)
[2016-10-08] MEDS: HEPARIN 5,000 UNITS/ML, 1ML SQ SCH ×3 (05:55→21:44)
[2016-10-08 06:22] LABS: DIFF TOTAL CELLS COUNTED 100 CELL DIFF
[2016-10-08 06:24] LABS: VERIFY COUNTS? YES
[2016-10-08 06:25] LABS: ANISOCYTOSIS 1+; OVALOCYTES 1+; POLYCHROMASIA 1+
[2016-10-08 06:33] VITALS: BP 136/63
[2016-10-08] MEDS: ALBUTEROL/IPRATROPIUM 2.5MG/0.5MG, 3 ML NPPB SCH ×4 (07:40→19:17)
[2016-10-08] MEDS: FUROSEMIDE 40 MG/4 ML IV SCH (09:00)
[2016-10-08] MEDS: TAMSULOSIN 0.4 MG CAP.ER.24H PO SCH (09:01)
[2016-10-08] MEDS: AMLODIPINE 5 MG TABLET PO SCH (09:01)
[2016-10-08] MEDS: TERAZOSIN 1MG CAPSULE PO SCH (09:01)
[2016-10-08] MEDS: PAROXETINE 10 MG TABLET PO SCH (09:01)
[2016-10-08] MEDS: METOPROLOL TARTRATE 25 MG TABLET PO SCH ×2 (09:01→21:42)
[2016-10-08] MEDS: FERROUS SULFATE 325 MG TABLET PO SCH ×2 (09:01→21:43)
[2016-10-08] MEDS: OMEPRAZOLE 20 MG CAPSULE.DR PO SCH (09:01)
[2016-10-08] MEDS: WINE PO SCH ×3 (12:00→17:45)
[2016-10-08 12:09] VITALS: BP 124/65
[2016-10-08 21:39] VITALS: BP 126/65
[2016-10-09 03:37] VITALS: BP 127/69
[2016-10-09 05:05] LABS: HEMATOCRIT 29.3 % (34.6-47.8); HEMOGLOBIN 9.4 g/dL (11.7-16.4); WHITE BLOOD COUNT 3.1 x10^3/uL (3.4-10)
[2016-10-09 05:10] LABS: BLOOD UREA NITROGEN 31 mg/dL (7-18)
[2016-10-09 05:32] LABS: DIFF TOTAL CELLS COUNTED 100 CELL DIFF
[2016-10-09 05:35] LABS: VERIFY COUNTS? YES
[2016-10-09 05:36] LABS: ANISOCYTOSIS 1+; OVALOCYTES 1+; POLYCHROMASIA 1+
[2016-10-09] MEDS: ALBUTEROL/IPRATROPIUM 2.5MG/0.5MG, 3 ML NPPB SCH ×4 (06:33→20:00)
[2016-10-09 06:46] VITALS: BP 108/54
[2016-10-09] MEDS: HEPARIN 5,000 UNITS/ML, 1ML SQ SCH ×3 (06:50→22:22)
[2016-10-09] MEDS: PAROXETINE 10 MG TABLET PO SCH (09:54)
[2016-10-09] MEDS: AMLODIPINE 5 MG TABLET PO SCH (09:54)
[2016-10-09] MEDS: FUROSEMIDE 40 MG/4 ML IV SCH (09:54)
[2016-10-09] MEDS: OMEPRAZOLE 20 MG CAPSULE.DR PO SCH (09:54)
[2016-10-09 09:55] VITALS: BP 145/72
[2016-10-09] MEDS: TERAZOSIN 1MG CAPSULE PO SCH (09:55)
[2016-10-09] MEDS: TAMSULOSIN 0.4 MG CAP.ER.24H PO SCH (09:55)
[2016-10-09] MEDS: DILTIAZEM 30 MG TABLET PO SCH ×3 (09:55→22:22)
[2016-10-09] MEDS: METOPROLOL TARTRATE 25 MG TABLET PO SCH ×2 (09:55→22:22)
[2016-10-09] MEDS: FERROUS SULFATE 325 MG TABLET PO SCH ×2 (09:55→22:22)
[2016-10-09] MEDS: DILTIAZEM 125 MG in SODIUM CHLORIDE 0.9% 100 ML IV SCH ×3 (12:07→12:08)
[2016-10-09] MEDS: WINE PO SCH ×2 (12:20→17:02)
[2016-10-09] MEDS ORDERED: DOCUSATE 100 MG CAPSULE PO PRN (14:00)
[2016-10-09] MEDS ORDERED: TEMAZEPAM 15 MG CAPSULE PO PRN (14:00)
[2016-10-09] MEDS ORDERED: hydrALAzine 20 MG/ML, 1ML IVPush PRN (14:00)
[2016-10-09] MEDS ORDERED: ONDANSETRON 2MG/ML, 2ML IVPush PRN (14:00)
[2016-10-09] MEDS ORDERED: ACETAMINOPHEN 325 MG TABLET PO PRN (14:00)
[2016-10-09 17:00] VITALS: BP 123/70
[2016-10-09 18:32] VITALS: BP 116/77
[2016-10-10 02:03] VITALS: BP 131/71
[2016-10-10] MEDS: ALBUTEROL/IPRATROPIUM 2.5MG/0.5MG, 3 ML NPPB SCH ×5 (04:31→19:40)
[2016-10-10] MEDS ORDERED: DIAZEPAM 5 MG TABLET ONE (04:42)
[2016-10-10] MEDS ORDERED: HEPARIN 5,000 UNITS/ML, 1ML ONE (04:43)
[2016-10-10] MEDS: ASPIRIN 325 MG TABLET PO SCH (04:46)
[2016-10-10] MEDS: DIAZEPAM 5 MG TABLET PO PRN (04:46)
[2016-10-10] MEDS: HEPARIN 5,000 UNITS/ML, 1ML SQ SCH ×3 (04:50→21:31)
[2016-10-10 05:35] LABS: BLOOD UREA NITROGEN 33 mg/dL (7-18)
[2016-10-10 05:45] LABS: HEMATOCRIT 30.8 % (34.6-47.8); HEMOGLOBIN 9.9 g/dL (11.7-16.4); WHITE BLOOD COUNT 3.9 x10^3/uL (3.4-10)
[2016-10-10 07:25] VITALS: BP 138/72
[2016-10-10] MEDS: METOPROLOL TARTRATE 25 MG TABLET PO SCH ×2 (08:39→21:31)
[2016-10-10] MEDS: TAMSULOSIN 0.4 MG CAP.ER.24H PO SCH (08:39)
[2016-10-10] MEDS: OMEPRAZOLE 20 MG CAPSULE.DR PO SCH (08:39)
[2016-10-10] MEDS: PAROXETINE 10 MG TABLET PO SCH (08:39)
[2016-10-10] MEDS: AMLODIPINE 5 MG TABLET PO SCH (08:39)
[2016-10-10] MEDS: FERROUS SULFATE 325 MG TABLET PO SCH ×2 (08:40→21:30)
[2016-10-10] MEDS: FUROSEMIDE 40 MG/4 ML IV SCH ×3 (08:40→21:30)
[2016-10-10] MEDS: DILTIAZEM 30 MG TABLET PO SCH ×3 (08:40→21:30)
[2016-10-10] MEDS: TERAZOSIN 1MG CAPSULE PO SCH (08:41)
[2016-10-10] MEDS: WINE PO SCH ×2 (12:15→17:18)
[2016-10-10 13:00] VITALS: BP 129/74
[2016-10-10] MEDS ORDERED: BISACODYL 10 MG SUPP PR PRN (13:00)
[2016-10-10] MEDS ORDERED: POLYETHYLENE GLYCOL 17 GM PACKET NG ONE (13:00)
[2016-10-10 14:11] LABS: UR ALBUMIN 62.1 % (.); UR ALPHA-1-GLOBULIN 0.9 % (.); UR ALPHA-2-GLOBULIN 13.9 % (.); UR BETA GLOBULIN 13.1 % (.); UR M-SPIKE % Not Observed % (Not Observed)
[2016-10-10 15:02] LABS: OCCBLD OBC PASS
[2016-10-10 19:00] VITALS: BP 154/70
[2016-10-10] MEDS: DIAZEPAM 5 MG TABLET HOMEMEDPO PRN (21:31)
[2016-10-10] MEDS: SODIUM CHLORIDE NASAL SPRAY 45ML BOTTLE NAS PRN (21:31)
[2016-10-11 00:54] VITALS: BP 156/72
[2016-10-11 05:07] LABS: HEMATOCRIT 29.1 % (34.6-47.8); HEMOGLOBIN 9.3 g/dL (11.7-16.4); WHITE BLOOD COUNT 3.6 x10^3/uL (3.4-10)
[2016-10-11] MEDS: HEPARIN 5,000 UNITS/ML, 1ML SQ SCH ×3 (05:30→21:06)
[2016-10-11 05:33] LABS: ASPARTATE AMINO TRANSFERASE 6 U/L (15-37); BLOOD UREA NITROGEN 34 mg/dL (7-18)
[2016-10-11] MEDS: ALBUTEROL/IPRATROPIUM 2.5MG/0.5MG, 3 ML NPPB SCH ×4 (05:45→19:25)
[2016-10-11 07:09] VITALS: BP 120/68
[2016-10-11] MEDS: OMEPRAZOLE 20 MG CAPSULE.DR PO SCH (08:30)
[2016-10-11] MEDS: DILTIAZEM 30 MG TABLET PO SCH ×3 (08:31→21:07)
[2016-10-11] MEDS: AMLODIPINE 5 MG TABLET PO SCH (08:31)
[2016-10-11] MEDS: METOPROLOL TARTRATE 25 MG TABLET PO SCH ×2 (08:31→21:07)
[2016-10-11] MEDS: TERAZOSIN 1MG CAPSULE PO SCH (08:31)
[2016-10-11] MEDS: TAMSULOSIN 0.4 MG CAP.ER.24H PO SCH (08:31)
[2016-10-11] MEDS: PAROXETINE 10 MG TABLET PO SCH (08:31)
[2016-10-11] MEDS: FERROUS SULFATE 325 MG TABLET PO SCH ×2 (08:31→21:07)
[2016-10-11] MEDS: FUROSEMIDE 40 MG/4 ML IV SCH ×2 (08:32→21:00)
[2016-10-11] MEDS: ASPIRIN 325 MG TABLET PO SCH (08:32)
[2016-10-11] MEDS: WINE PO SCH ×3 (12:24→17:34)
[2016-10-11 12:46] VITALS: BP 136/72
[2016-10-11] MEDS: ADVAIR INH SCH ×2 (14:00→21:00)
[2016-10-11] MEDS ORDERED: ADVAIR INH SCH (14:00)
[2016-10-11 19:34] VITALS: BP 126/72
[2016-10-11] MEDS: DIAZEPAM 5 MG TABLET HOMEMEDPO PRN (21:08)
[2016-10-12 02:35] VITALS: BP 135/69
[2016-10-12 05:22] LABS: BLOOD UREA NITROGEN 35 mg/dL (7-18)
[2016-10-12 05:23] LABS: HEMATOCRIT 29.8 % (34.6-47.8); HEMOGLOBIN 9.5 g/dL (11.7-16.4); WHITE BLOOD COUNT 3.9 x10^3/uL (3.4-10)
[2016-10-12 05:26] LABS: ASPARTATE AMINO TRANSFERASE 15 U/L (15-37)
[2016-10-12] MEDS: ASPIRIN 325 MG TABLET PO SCH (05:57)
[2016-10-12] MEDS: HEPARIN 5,000 UNITS/ML, 1ML SQ SCH ×3 (05:57→20:22)
[2016-10-12] MEDS: ALBUTEROL/IPRATROPIUM 2.5MG/0.5MG, 3 ML NPPB SCH ×4 (07:22→20:00)
[2016-10-12 08:10] VITALS: BP 158/69
[2016-10-12] MEDS: TAMSULOSIN 0.4 MG CAP.ER.24H PO SCH (08:41)
[2016-10-12] MEDS: OMEPRAZOLE 20 MG CAPSULE.DR PO SCH (08:41)
[2016-10-12] MEDS: FERROUS SULFATE 325 MG TABLET PO SCH ×2 (08:41→20:23)
[2016-10-12] MEDS: METOPROLOL TARTRATE 25 MG TABLET PO SCH ×2 (08:41→20:23)
[2016-10-12] MEDS: PAROXETINE 10 MG TABLET PO SCH (08:41)
[2016-10-12] MEDS: DILTIAZEM 30 MG TABLET PO SCH ×3 (08:42→20:22)
[2016-10-12] MEDS: ADVAIR INH SCH ×2 (08:42→20:23)
[2016-10-12] MEDS: TERAZOSIN 1MG CAPSULE PO SCH (08:43)
[2016-10-12] MEDS: FUROSEMIDE 40 MG/4 ML IV SCH ×2 (08:43→20:22)
[2016-10-12] MEDS: ERGOCALCIFEROL 50,000 UNIT CAPSULE PO SCH (08:44)
[2016-10-12 12:50] LABS: OCCBLD OBC PASS
[2016-10-12 13:03] VITALS: BP 151/73
[2016-10-12] MEDS: WINE PO SCH ×2 (13:08→17:43)
[2016-10-12 19:25] VITALS: BP 139/81
[2016-10-12] MEDS: DIAZEPAM 5 MG TABLET HOMEMEDPO PRN (20:23)
[2016-10-13 02:04] VITALS: BP 138/74
[2016-10-13 05:52] LABS: BLOOD UREA NITROGEN 34 mg/dL (7-18)
[2016-10-13] MEDS: ASPIRIN 325 MG TABLET PO SCH (06:07)
[2016-10-13] MEDS: HEPARIN 5,000 UNITS/ML, 1ML SQ SCH ×3 (06:07→20:19)
[2016-10-13] MEDS: ALBUTEROL/IPRATROPIUM 2.5MG/0.5MG, 3 ML NPPB SCH ×4 (07:47→20:00)
[2016-10-13 07:58] VITALS: BP 127/63
[2016-10-13] MEDS: FUROSEMIDE 40 MG/4 ML IV SCH ×2 (08:41→20:34)
[2016-10-13] MEDS: DILTIAZEM 30 MG TABLET PO SCH ×3 (08:42→20:21)
[2016-10-13] MEDS: PAROXETINE 10 MG TABLET PO SCH (08:42)
[2016-10-13] MEDS: TAMSULOSIN 0.4 MG CAP.ER.24H PO SCH (08:42)
[2016-10-13] MEDS: FERROUS SULFATE 325 MG TABLET PO SCH ×2 (08:42→20:21)
[2016-10-13] MEDS: METOPROLOL TARTRATE 25 MG TABLET PO SCH ×2 (08:42→20:20)
[2016-10-13] MEDS: OMEPRAZOLE 20 MG CAPSULE.DR PO SCH (08:42)
[2016-10-13] MEDS: TERAZOSIN 1MG CAPSULE PO SCH (08:43)
[2016-10-13] MEDS: ADVAIR INH SCH ×2 (08:47→21:00)
[2016-10-13] MEDS: WINE PO SCH ×2 (12:07→18:26)
[2016-10-13 13:20] VITALS: BP 151/77
[2016-10-13 18:38] VITALS: BP 130/69
[2016-10-13] MEDS ORDERED: DIAZEPAM 10 MG TABLET ONE (21:25)
[2016-10-13] MEDS: DIAZEPAM 5 MG TABLET HOMEMEDPO PRN (21:43)
[2016-10-14 02:00] VITALS: BP 133/77
[2016-10-14 05:20] LABS: HEMATOCRIT 29.1 % (34.6-47.8); HEMOGLOBIN 9.4 g/dL (11.7-16.4); WHITE BLOOD COUNT 5.7 x10^3/uL (3.4-10)
[2016-10-14 05:55] LABS: BLOOD UREA NITROGEN 32 mg/dL (7-18)
[2016-10-14 05:57] LABS: ASPARTATE AMINO TRANSFERASE 28 U/L (15-37)
[2016-10-14] MEDS: HEPARIN 5,000 UNITS/ML, 1ML SQ SCH ×3 (06:15→22:27)
[2016-10-14] MEDS: ASPIRIN 325 MG TABLET PO SCH (06:15)
[2016-10-14] MEDS: ALBUTEROL/IPRATROPIUM 2.5MG/0.5MG, 3 ML NPPB SCH ×4 (07:00→20:21)
[2016-10-14 07:34] VITALS: BP 120/77
[2016-10-14] MEDS: ADVAIR INH SCH ×2 (08:55→20:19)
[2016-10-14] MEDS: FUROSEMIDE 40 MG/4 ML IV SCH ×2 (08:55→20:19)
[2016-10-14] MEDS: TAMSULOSIN 0.4 MG CAP.ER.24H PO SCH (08:56)
[2016-10-14] MEDS: DILTIAZEM 30 MG TABLET PO SCH ×3 (08:56→20:19)
[2016-10-14] MEDS: TERAZOSIN 1MG CAPSULE PO SCH (08:56)
[2016-10-14] MEDS: FERROUS SULFATE 325 MG TABLET PO SCH ×2 (08:56→20:19)
[2016-10-14] MEDS: PAROXETINE 10 MG TABLET PO SCH (08:57)
[2016-10-14] MEDS: METOPROLOL TARTRATE 25 MG TABLET PO SCH ×2 (08:57→20:11)
[2016-10-14] MEDS: OMEPRAZOLE 20 MG CAPSULE.DR PO SCH (08:57)
[2016-10-14] MEDS: WINE PO SCH ×2 (12:25→18:05)
[2016-10-14 12:40] VITALS: BP 131/76
[2016-10-14 19:00] VITALS: BP 166/67
[2016-10-14] MEDS ORDERED: DIAZEPAM 10 MG TABLET ONE (20:06)
[2016-10-14] MEDS: DIAZEPAM 5 MG TABLET HOMEMEDPO PRN ×2 (20:10→21:05)
[2016-10-14 21:44] VITALS: BP 142/72
[2016-10-15 01:56] VITALS: BP 150/78
[2016-10-15 05:31] LABS: HEMATOCRIT 29.4 % (34.6-47.8); HEMOGLOBIN 9.3 g/dL (11.7-16.4); WHITE BLOOD COUNT 5.3 x10^3/uL (3.4-10)
[2016-10-15 05:41] LABS: BLOOD UREA NITROGEN 33 mg/dL (7-18)
[2016-10-15 05:45] LABS: ASPARTATE AMINO TRANSFERASE 11 U/L (15-37)
[2016-10-15] MEDS: ASPIRIN 325 MG TABLET PO SCH (06:01)
[2016-10-15] MEDS: HEPARIN 5,000 UNITS/ML, 1ML SQ SCH ×3 (06:02→21:39)
[2016-10-15] MEDS: ALBUTEROL/IPRATROPIUM 2.5MG/0.5MG, 3 ML NPPB SCH ×4 (06:37→20:35)
[2016-10-15 07:41] VITALS: BP 131/71
[2016-10-15] MEDS: TERAZOSIN 1MG CAPSULE PO SCH (08:28)
[2016-10-15] MEDS: PAROXETINE 10 MG TABLET PO SCH (08:28)
[2016-10-15] MEDS: FERROUS SULFATE 325 MG TABLET PO SCH ×2 (08:29→21:25)
[2016-10-15] MEDS: DILTIAZEM 30 MG TABLET PO SCH ×3 (08:29→21:26)
[2016-10-15] MEDS: OMEPRAZOLE 20 MG CAPSULE.DR PO SCH (08:29)
[2016-10-15] MEDS: METOPROLOL TARTRATE 25 MG TABLET PO SCH ×2 (08:29→21:26)
[2016-10-15] MEDS: TAMSULOSIN 0.4 MG CAP.ER.24H PO SCH (08:29)
[2016-10-15] MEDS: FUROSEMIDE 40 MG/4 ML IV SCH ×3 (08:30→22:39)
[2016-10-15] MEDS: ADVAIR INH SCH ×2 (08:30→21:00)
[2016-10-15] MEDS: WINE PO SCH ×2 (12:15→17:22)
[2016-10-15 12:35] VITALS: BP 136/69
[2016-10-15] MEDS: ALBUMIN HUMAN 25% 50 ML IV SCH ×2 (13:50→21:39)
[2016-10-15] MEDS: SODIUM CHLORIDE NASAL SPRAY 45ML BOTTLE NAS PRN (14:46)
[2016-10-15] MEDS ORDERED: FUROSEMIDE 40 MG/4 ML IV SCH (16:00)
[2016-10-15] MEDS: METOLAZONE 5 MG TABLET PO SCH ×2 (17:00→17:22)
[2016-10-15 20:22] VITALS: BP 138/74
[2016-10-15] MEDS: DIAZEPAM 5 MG TABLET HOMEMEDPO PRN (21:25)
[2016-10-16 02:30] VITALS: BP 145/69
[2016-10-16] MEDS: DIPHENOXYLATE/ATROPINE TABLET PO PRN ×3 (03:31→22:03)
[2016-10-16] MEDS: ASPIRIN 325 MG TABLET PO SCH (05:51)
[2016-10-16] MEDS: HEPARIN 5,000 UNITS/ML, 1ML SQ SCH ×3 (05:51→21:57)
[2016-10-16] MEDS: ALBUMIN HUMAN 25% 50 ML IV SCH ×3 (05:51→21:57)
[2016-10-16] MEDS: FUROSEMIDE 40 MG/4 ML IV SCH ×3 (06:20→22:33)
[2016-10-16] MEDS: METOLAZONE 5 MG TABLET PO SCH (07:30)
[2016-10-16 07:52] VITALS: BP 134/69
[2016-10-16] MEDS: ADVAIR INH SCH ×2 (09:00→21:00)
[2016-10-16] MEDS: OMEPRAZOLE 20 MG CAPSULE.DR PO SCH ×2 (09:25→12:42)
[2016-10-16] MEDS: TERAZOSIN 1MG CAPSULE PO SCH (09:25)
[2016-10-16] MEDS: DILTIAZEM 30 MG TABLET PO SCH ×3 (09:25→21:57)
[2016-10-16] MEDS: TAMSULOSIN 0.4 MG CAP.ER.24H PO SCH (09:25)
[2016-10-16] MEDS: PAROXETINE 10 MG TABLET PO SCH (09:25)
[2016-10-16] MEDS: FERROUS SULFATE 325 MG TABLET PO SCH ×2 (09:25→21:56)
[2016-10-16] MEDS: METOPROLOL TARTRATE 25 MG TABLET PO SCH ×2 (09:25→21:56)
[2016-10-16 09:42] LABS: BLOOD UREA NITROGEN 32 mg/dL (7-18)
[2016-10-16] MEDS: ALBUTEROL/IPRATROPIUM 2.5MG/0.5MG, 3 ML NPPB SCH ×3 (10:15→16:35)
[2016-10-16] MEDS ORDERED: POTASSIUM CHLORIDE 20 MEQ TAB.ER.PRT PO ONE (10:30)
[2016-10-16 12:37] VITALS: BP 131/71
[2016-10-16] MEDS: WINE PO SCH ×2 (12:42→17:23)
[2016-10-16 18:26] VITALS: BP 158/81
[2016-10-16] MEDS ORDERED: DOCUSATE 100 MG CAPSULE PO PRN (20:00)
[2016-10-16] MEDS ORDERED: TEMAZEPAM 15 MG CAPSULE PO PRN (20:00)
[2016-10-16] MEDS ORDERED: ACETAMINOPHEN 325 MG TABLET PO PRN (20:00)
[2016-10-16] MEDS ORDERED: hydrALAzine 20 MG/ML, 1ML IVPush PRN (20:00)
[2016-10-16] MEDS ORDERED: BISACODYL 10 MG SUPP PR PRN (20:00)
[2016-10-16] MEDS ORDERED: ONDANSETRON 2MG/ML, 2ML IVPush PRN (20:00)
[2016-10-16] MEDS: DIAZEPAM 5 MG TABLET HOMEMEDPO PRN (21:57)
[2016-10-17 02:00] VITALS: BP 133/71
[2016-10-17] MEDS: ALBUTEROL/IPRATROPIUM 2.5MG/0.5MG, 3 ML NPPB SCH ×5 (03:25→18:36)
[2016-10-17 05:42] LABS: HEMATOCRIT 27.9 % (34.6-47.8); WHITE BLOOD COUNT 5.2 x10^3/uL (3.4-10)
[2016-10-17] MEDS: HEPARIN 5,000 UNITS/ML, 1ML SQ SCH ×3 (05:46→21:28)
[2016-10-17] MEDS: ALBUMIN HUMAN 25% 50 ML IV SCH ×3 (05:46→21:28)
[2016-10-17] MEDS: ASPIRIN 325 MG TABLET PO SCH (05:46)
[2016-10-17] MEDS: FUROSEMIDE 40 MG/4 ML IV SCH ×3 (06:11→21:58)
[2016-10-17 06:13] LABS: ASPARTATE AMINO TRANSFERASE 16 U/L (15-37); BLOOD UREA NITROGEN 29 mg/dL (7-18)
[2016-10-17 06:31] VITALS: BP 143/69
[2016-10-17] MEDS: ADVAIR INH SCH ×2 (09:00→21:00)
[2016-10-17] MEDS: PAROXETINE 10 MG TABLET PO SCH (09:02)
[2016-10-17] MEDS: FERROUS SULFATE 325 MG TABLET PO SCH ×2 (09:02→21:29)
[2016-10-17] MEDS: METOPROLOL TARTRATE 25 MG TABLET PO SCH ×2 (09:02→21:28)
[2016-10-17] MEDS: TAMSULOSIN 0.4 MG CAP.ER.24H PO SCH (09:03)
[2016-10-17] MEDS: TERAZOSIN 1MG CAPSULE PO SCH (09:03)
[2016-10-17] MEDS: DILTIAZEM 30 MG TABLET PO SCH ×3 (09:03→21:29)
[2016-10-17] MEDS: OMEPRAZOLE 20 MG CAPSULE.DR PO SCH (09:04)
[2016-10-17 12:27] VITALS: BP 132/65
[2016-10-17] MEDS: WINE PO SCH ×2 (12:48→16:54)
[2016-10-17 20:00] VITALS: BP 180/68
[2016-10-17] MEDS: DIAZEPAM 5 MG TABLET HOMEMEDPO PRN (21:27)
[2016-10-17] MEDS: DIPHENOXYLATE/ATROPINE TABLET PO PRN (21:28)
[2016-10-18] MEDS: ALBUTEROL/IPRATROPIUM 2.5MG/0.5MG, 3 ML NPPB SCH ×5 (00:54→21:45)
[2016-10-18 02:00] VITALS: BP 145/78
[2016-10-18 05:29] LABS: HEMATOCRIT 28.4 % (34.6-47.8); WHITE BLOOD COUNT 5.8 x10^3/uL (3.4-10)
[2016-10-18 05:42] LABS: BLOOD UREA NITROGEN 31 mg/dL (7-18)
[2016-10-18] MEDS: ALBUMIN HUMAN 25% 50 ML IV SCH ×3 (05:51→21:45)
[2016-10-18] MEDS: ASPIRIN 325 MG TABLET PO SCH (05:51)
[2016-10-18] MEDS: HEPARIN 5,000 UNITS/ML, 1ML SQ SCH ×3 (05:52→21:45)
[2016-10-18] MEDS: FUROSEMIDE 40 MG/4 ML IV SCH ×3 (06:30→23:33)
[2016-10-18 07:57] VITALS: BP 150/66
[2016-10-18] MEDS: METOPROLOL TARTRATE 50 MG TABLET PO SCH ×3 (08:30→21:44)
[2016-10-18] MEDS: ADVAIR INH SCH ×2 (09:00→21:45)
[2016-10-18] MEDS: OMEPRAZOLE 20 MG CAPSULE.DR PO SCH (09:23)
[2016-10-18] MEDS: PAROXETINE 10 MG TABLET PO SCH (09:24)
[2016-10-18] MEDS: DILTIAZEM 30 MG TABLET PO SCH ×3 (09:24→21:44)
[2016-10-18] MEDS: TAMSULOSIN 0.4 MG CAP.ER.24H PO SCH (09:24)
[2016-10-18] MEDS: FERROUS SULFATE 325 MG TABLET PO SCH ×2 (09:24→21:44)
[2016-10-18] MEDS: TERAZOSIN 1MG CAPSULE PO SCH (09:25)
[2016-10-18] MEDS: DIPHENOXYLATE/ATROPINE TABLET PO PRN ×2 (09:37→18:15)
[2016-10-18] MEDS ORDERED: FLUTICASONE NASAL SPRAY 16GM NAS PRN (11:30)
[2016-10-18] MEDS: WINE PO SCH ×2 (12:00→17:00)
[2016-10-18 13:24] VITALS: BP 150/91
[2016-10-18] MEDS: DIAZEPAM 5 MG TABLET HOMEMEDPO PRN (15:33)
[2016-10-18 19:11] VITALS: BP 127/74
[2016-10-18] MEDS ORDERED: FUROSEMIDE 20 MG/2 ML ONE (23:29)
[2016-10-19] MEDS: ASPIRIN 325 MG TABLET PO SCH (06:00)
[2016-10-19] MEDS: ALBUMIN HUMAN 25% 50 ML IV SCH ×3 (06:00→22:08)
[2016-10-19] MEDS: HEPARIN 5,000 UNITS/ML, 1ML SQ SCH ×3 (06:00→21:01)
[2016-10-19] MEDS ORDERED: FUROSEMIDE 20 MG/2 ML ONE ×2 (06:45→23:00)
[2016-10-19 08:00] VITALS: BP 159/73
[2016-10-19 08:18] LABS: BLOOD UREA NITROGEN 32 mg/dL (7-18)
[2016-10-19] MEDS: ADVAIR INH SCH ×2 (09:00→21:01)
[2016-10-19] MEDS: FERROUS SULFATE 325 MG TABLET PO SCH ×2 (09:05→21:00)
[2016-10-19] MEDS: OMEPRAZOLE 20 MG CAPSULE.DR PO SCH (09:05)
[2016-10-19] MEDS: PAROXETINE 10 MG TABLET PO SCH (09:05)
[2016-10-19] MEDS: METOPROLOL TARTRATE 50 MG TABLET PO SCH ×2 (09:05→21:00)
[2016-10-19] MEDS: TERAZOSIN 1MG CAPSULE PO SCH (09:05)
[2016-10-19] MEDS: TAMSULOSIN 0.4 MG CAP.ER.24H PO SCH (09:05)
[2016-10-19] MEDS: DILTIAZEM 30 MG TABLET PO SCH ×3 (09:05→21:00)
[2016-10-19] MEDS: DIPHENOXYLATE/ATROPINE TABLET PO PRN (13:22)
[2016-10-19] MEDS: ERGOCALCIFEROL 50,000 UNIT CAPSULE PO SCH (14:31)
[2016-10-19] MEDS: WINE PO SCH ×2 (14:32→17:12)
[2016-10-19 14:39] VITALS: BP 151/78
[2016-10-19 20:33] VITALS: BP 158/66
[2016-10-19] MEDS ORDERED: DIAZEPAM 2 MG TABLET PO SCH (21:00)
[2016-10-19] MEDS: FUROSEMIDE 40 MG/4 ML IV SCH (23:04)
[2016-10-20 01:30] VITALS: BP 119/69
[2016-10-20 06:00] LABS: ASPARTATE AMINO TRANSFERASE 7 U/L (15-37); BLOOD UREA NITROGEN 36 mg/dL (7-18)
[2016-10-20] MEDS: ALBUMIN HUMAN 25% 50 ML IV SCH (06:03)
[2016-10-20] MEDS ORDERED: FUROSEMIDE 20 MG/2 ML ONE (07:09)
[2016-10-20] MEDS: FUROSEMIDE 40 MG/4 ML IV SCH (07:11)
[2016-10-20] MEDS: ALBUTEROL/IPRATROPIUM 2.5MG/0.5MG, 3 ML NPPB SCH ×4 (07:25→18:58)
[2016-10-20 07:45] VITALS: BP 135/85
[2016-10-20] MEDS: ADVAIR INH SCH ×2 (08:00→21:00)
[2016-10-20] MEDS: ASPIRIN 325 MG TABLET PO SCH (08:02)
[2016-10-20] MEDS: DILTIAZEM 30 MG TABLET PO SCH ×3 (08:03→21:17)
[2016-10-20] MEDS: TAMSULOSIN 0.4 MG CAP.ER.24H PO SCH (08:03)
[2016-10-20] MEDS: FERROUS SULFATE 325 MG TABLET PO SCH ×2 (08:03→21:16)
[2016-10-20] MEDS: PAROXETINE 10 MG TABLET PO SCH (08:04)
[2016-10-20] MEDS: METOPROLOL TARTRATE 50 MG TABLET PO SCH ×2 (08:04→21:16)
[2016-10-20] MEDS: OMEPRAZOLE 20 MG CAPSULE.DR PO SCH (08:04)
[2016-10-20] MEDS: HEPARIN 5,000 UNITS/ML, 1ML SQ SCH ×2 (08:05→17:00)
[2016-10-20] MEDS: TERAZOSIN 1MG CAPSULE PO SCH (08:05)
[2016-10-20] MEDS ORDERED: DIAZEPAM 2 MG TABLET PO PRN (09:00)
[2016-10-20] MEDS: DIAZEPAM 2 MG TABLET PO SCH ×2 (09:17→21:17)
[2016-10-20] MEDS: WINE PO SCH ×2 (12:00→17:44)
[2016-10-20 15:46] VITALS: BP 134/72
[2016-10-20 18:26] VITALS: BP 136/77
[2016-10-20] MEDS ORDERED: DIAZEPAM 2 MG TABLET PO ONE (21:00)
[2016-10-20 21:14] VITALS: BP 146/71
[2016-10-20] MEDS: DIPHENOXYLATE/ATROPINE TABLET PO PRN (21:22)
[2016-10-21 00:35] VITALS: BP 117/74
[2016-10-21] MEDS: HEPARIN 5,000 UNITS/ML, 1ML SQ SCH ×3 (00:58→18:06)
[2016-10-21] MEDS ORDERED: DIAZEPAM 2 MG TABLET PO PRN (02:00)
[2016-10-21] MEDS ORDERED: HYDROcodone/APAP 5/325 TABLET PO PRN (02:00)
[2016-10-21] MEDS: ASPIRIN 325 MG TABLET PO SCH (06:24)
[2016-10-21] MEDS: ALBUTEROL/IPRATROPIUM 2.5MG/0.5MG, 3 ML NPPB SCH ×4 (07:00→19:02)
[2016-10-21] MEDS: DILTIAZEM 30 MG TABLET PO SCH ×3 (08:52→20:53)
[2016-10-21] MEDS: FERROUS SULFATE 325 MG TABLET PO SCH ×2 (08:52→20:52)
[2016-10-21] MEDS: TAMSULOSIN 0.4 MG CAP.ER.24H PO SCH (08:53)
[2016-10-21] MEDS: TERAZOSIN 1MG CAPSULE PO SCH (08:53)
[2016-10-21] MEDS: DIAZEPAM 2 MG TABLET PO SCH ×2 (08:54→20:53)
[2016-10-21] MEDS: METOPROLOL TARTRATE 50 MG TABLET PO SCH ×2 (08:54→20:53)
[2016-10-21] MEDS: OMEPRAZOLE 20 MG CAPSULE.DR PO SCH (08:54)
[2016-10-21] MEDS: ADVAIR INH SCH ×2 (08:56→20:52)
[2016-10-21] MEDS: PAROXETINE 10 MG TABLET PO SCH (08:56)
[2016-10-21] MEDS: DIPHENOXYLATE/ATROPINE TABLET PO PRN (09:02)
[2016-10-21 09:54] VITALS: BP 137/77
[2016-10-21] MEDS: WINE PO SCH ×2 (13:08→17:00)
[2016-10-21 16:00] VITALS: BP 147/74
[2016-10-21 20:48] VITALS: BP 131/72
[2016-10-22 01:05] VITALS: BP 137/82
[2016-10-22] MEDS: HEPARIN 5,000 UNITS/ML, 1ML SQ SCH ×3 (02:16→17:00)
[2016-10-22 05:40] LABS: BLOOD UREA NITROGEN 50 mg/dL (7-18)
[2016-10-22 05:42] LABS: HEMATOCRIT 27.7 % (34.6-47.8); WHITE BLOOD COUNT 7.6 x10^3/uL (3.4-10)
[2016-10-22 05:44] LABS: ASPARTATE AMINO TRANSFERASE 8 U/L (15-37)
[2016-10-22 06:51] VITALS: BP 154/85
[2016-10-22] MEDS: ALBUTEROL/IPRATROPIUM 2.5MG/0.5MG, 3 ML NPPB SCH ×4 (07:52→21:00)
[2016-10-22] MEDS: TAMSULOSIN 0.4 MG CAP.ER.24H PO SCH (09:00)
[2016-10-22] MEDS: ASPIRIN 325 MG TABLET PO SCH (09:00)
[2016-10-22] MEDS: FERROUS SULFATE 325 MG TABLET PO SCH ×2 (09:00→22:18)
[2016-10-22] MEDS: DILTIAZEM 30 MG TABLET PO SCH ×3 (09:00→22:20)
[2016-10-22] MEDS: OMEPRAZOLE 20 MG CAPSULE.DR PO SCH (09:00)
[2016-10-22] MEDS: PAROXETINE 10 MG TABLET PO SCH (09:00)
[2016-10-22] MEDS: TERAZOSIN 1MG CAPSULE PO SCH (09:00)
[2016-10-22] MEDS: ADVAIR INH SCH ×2 (09:00→21:00)
[2016-10-22] MEDS: DIAZEPAM 2 MG TABLET PO SCH ×2 (09:09→22:19)
[2016-10-22] MEDS: METOPROLOL TARTRATE 50 MG TABLET PO SCH ×2 (09:12→22:30)
[2016-10-22] MEDS: WINE PO SCH ×2 (12:00→17:00)
[2016-10-22] MEDS: FLUTICASONE NASAL SPRAY 16GM NAS SCH (12:48)
[2016-10-22 14:51] VITALS: BP 120/77
[2016-10-22 22:18] VITALS: BP 137/55
[2016-10-23] MEDS: HEPARIN 5,000 UNITS/ML, 1ML SQ SCH ×3 (00:51→17:34)
[2016-10-23] MEDS: ALBUTEROL/IPRATROPIUM 2.5MG/0.5MG, 3 ML NPPB PRN (00:58)
[2016-10-23 02:45] VITALS: BP 113/66
[2016-10-23] MEDS: ASPIRIN 325 MG TABLET PO SCH (05:29)
[2016-10-23 06:11] LABS: HEMOGLOBIN 8.9 g/dL (11.7-16.4); WHITE BLOOD COUNT 6.9 x10^3/uL (3.4-10)
[2016-10-23 06:20] LABS: BLOOD UREA NITROGEN 53 mg/dL (7-18)
[2016-10-23 06:24] LABS: ASPARTATE AMINO TRANSFERASE 12 U/L (15-37)
[2016-10-23] MEDS: ALBUTEROL/IPRATROPIUM 2.5MG/0.5MG, 3 ML NPPB SCH ×4 (07:15→20:30)
[2016-10-23 07:53] VITALS: BP 122/72
[2016-10-23] MEDS: FLUTICASONE NASAL SPRAY 16GM NAS SCH (08:47)
[2016-10-23] MEDS: ADVAIR INH SCH ×2 (08:48→20:01)
[2016-10-23] MEDS: OMEPRAZOLE 20 MG CAPSULE.DR PO SCH (08:50)
[2016-10-23] MEDS: PAROXETINE 10 MG TABLET PO SCH (08:50)
[2016-10-23] MEDS: DILTIAZEM 30 MG TABLET PO SCH ×3 (08:50→20:03)
[2016-10-23] MEDS: TAMSULOSIN 0.4 MG CAP.ER.24H PO SCH (08:50)
[2016-10-23] MEDS: METOPROLOL TARTRATE 50 MG TABLET PO SCH ×2 (08:51→20:02)
[2016-10-23] MEDS: DIAZEPAM 2 MG TABLET PO SCH ×2 (08:51→20:01)
[2016-10-23] MEDS: FERROUS SULFATE 325 MG TABLET PO SCH ×2 (08:51→20:02)
[2016-10-23] MEDS: TERAZOSIN 1MG CAPSULE PO SCH (08:53)
[2016-10-23] MEDS: WINE PO SCH ×2 (12:59→17:34)
[2016-10-23] MEDS: ALBUMIN HUMAN 25% 100 ML IV SCH ×2 (13:05→18:22)
[2016-10-23 13:10] VITALS: BP 126/75
[2016-10-23] MEDS ORDERED: BISACODYL 10 MG SUPP PR PRN (15:00)
[2016-10-23] MEDS ORDERED: ONDANSETRON 2MG/ML, 2ML IVPush PRN (15:00)
[2016-10-23] MEDS ORDERED: hydrALAzine 20 MG/ML, 1ML IVPush PRN (15:00)
[2016-10-23] MEDS ORDERED: DOCUSATE 100 MG CAPSULE PO PRN (15:00)
[2016-10-23 20:00] VITALS: BP 129/78
[2016-10-23] MEDS: ACETAMINOPHEN 325 MG TABLET PO PRN (20:02)
[2016-10-24 02:55] VITALS: BP 129/72
[2016-10-24] MEDS: ALBUMIN HUMAN 25% 100 ML IV SCH ×3 (03:05→16:11)
[2016-10-24] MEDS: HEPARIN 5,000 UNITS/ML, 1ML SQ SCH ×3 (03:05→17:00)
[2016-10-24 04:58] LABS: HEMATOCRIT 26.5 % (34.6-47.8); HEMOGLOBIN 8.4 g/dL (11.7-16.4); WHITE BLOOD COUNT 6.2 x10^3/uL (3.4-10)
[2016-10-24 05:07] LABS: BLOOD UREA NITROGEN 56 mg/dL (7-18)
[2016-10-24] MEDS: ASPIRIN 325 MG TABLET PO SCH (05:08)
[2016-10-24 05:12] LABS: ASPARTATE AMINO TRANSFERASE 12 U/L (15-37)
[2016-10-24] MEDS: ALBUTEROL/IPRATROPIUM 2.5MG/0.5MG, 3 ML NPPB SCH ×4 (06:50→19:40)
[2016-10-24 07:14] VITALS: BP 116/78
[2016-10-24] MEDS: FLUTICASONE NASAL SPRAY 16GM NAS SCH (08:06)
[2016-10-24] MEDS: DIAZEPAM 2 MG TABLET PO SCH (08:06)
[2016-10-24] MEDS: DILTIAZEM 30 MG TABLET PO SCH ×3 (08:07→20:56)
[2016-10-24] MEDS: PAROXETINE 10 MG TABLET PO SCH (08:07)
[2016-10-24] MEDS: ADVAIR INH SCH ×2 (09:00→20:56)
[2016-10-24] MEDS: FERROUS SULFATE 325 MG TABLET PO SCH ×2 (09:00→20:55)
[2016-10-24] MEDS: TERAZOSIN 1MG CAPSULE PO SCH (09:00)
[2016-10-24] MEDS: TAMSULOSIN 0.4 MG CAP.ER.24H PO SCH (11:05)
[2016-10-24] MEDS: OMEPRAZOLE 20 MG CAPSULE.DR PO SCH (11:05)
[2016-10-24] MEDS: METOPROLOL TARTRATE 50 MG TABLET PO SCH ×2 (11:07→20:56)
[2016-10-24] MEDS ORDERED: morphine SULFATE 10 MG/ML, 1ML IVPush ONE (13:00)
[2016-10-24] MEDS: WINE PO SCH ×2 (13:04→17:00)
[2016-10-24 14:00] VITALS: BP 133/78
[2016-10-24] MEDS ORDERED: morphine SULFATE 10 MG/ML, 1ML IVPush PRN (16:30)
[2016-10-24 20:45] VITALS: BP 126/72
[2016-10-24] MEDS: ACETAMINOPHEN 325 MG TABLET PO PRN (21:06)
[2016-10-24] MEDS: DIAZEPAM 2 MG TABLET PO PRN (21:06)
[2016-10-25] MEDS: ALBUMIN HUMAN 25% 100 ML IV SCH (00:31)
[2016-10-25] MEDS: HEPARIN 5,000 UNITS/ML, 1ML SQ SCH ×3 (00:32→16:16)
[2016-10-25] MEDS: DIPHENOXYLATE/ATROPINE TABLET PO PRN ×2 (00:41→23:47)
[2016-10-25 02:05] VITALS: BP 123/72
[2016-10-25 04:58] LABS: HEMOGLOBIN 8.7 g/dL (11.7-16.4); WHITE BLOOD COUNT 7.1 x10^3/uL (3.4-10)
[2016-10-25 05:08] LABS: BLOOD UREA NITROGEN 58 mg/dL (7-18)
[2016-10-25] MEDS: ASPIRIN 325 MG TABLET PO SCH (05:24)
[2016-10-25] MEDS: ALBUTEROL/IPRATROPIUM 2.5MG/0.5MG, 3 ML NPPB SCH ×4 (06:40→20:00)
[2016-10-25 08:00] VITALS: BP 142/75
[2016-10-25] MEDS: ADVAIR INH SCH ×2 (08:26→20:50)
[2016-10-25] MEDS: FLUTICASONE NASAL SPRAY 16GM NAS SCH ×2 (08:27→08:37)
[2016-10-25] MEDS: TAMSULOSIN 0.4 MG CAP.ER.24H PO SCH (08:28)
[2016-10-25] MEDS: METOPROLOL TARTRATE 50 MG TABLET PO SCH ×2 (08:28→20:49)
[2016-10-25] MEDS: PAROXETINE 10 MG TABLET PO SCH (08:29)
[2016-10-25] MEDS: DILTIAZEM 30 MG TABLET PO SCH ×3 (08:30→20:49)
[2016-10-25] MEDS: OMEPRAZOLE 20 MG CAPSULE.DR PO SCH (08:30)
[2016-10-25] MEDS: FERROUS SULFATE 325 MG TABLET PO SCH ×2 (08:30→20:49)
[2016-10-25] MEDS: TERAZOSIN 1MG CAPSULE PO SCH (08:35)
[2016-10-25 10:53] LABS: HEP B SURF. AB < 3.1 mIU/mL (0.0-10.0)
[2016-10-25] MEDS: WINE PO SCH ×2 (12:00→16:16)
[2016-10-25 14:00] VITALS: BP 142/80
[2016-10-25 16:42] VITALS: BP 117/67
[2016-10-25 19:30] VITALS: BP 124/66
[2016-10-25] MEDS: ACETAMINOPHEN 325 MG TABLET PO PRN (20:50)
[2016-10-26] MEDS: HEPARIN 5,000 UNITS/ML, 1ML SQ SCH ×3 (01:30→18:08)
[2016-10-26] MEDS: DIAZEPAM 2 MG TABLET PO PRN ×3 (01:30→18:08)
[2016-10-26 01:35] VITALS: BP 109/66
[2016-10-26] MEDS: ASPIRIN 325 MG TABLET PO SCH (04:28)
[2016-10-26 04:52] LABS: HEMATOCRIT 27.1 % (34.6-47.8); HEMOGLOBIN 8.7 g/dL (11.7-16.4); WHITE BLOOD COUNT 8.2 x10^3/uL (3.4-10)
[2016-10-26 05:06] LABS: BLOOD UREA NITROGEN 31 mg/dL (7-18)
[2016-10-26 08:13] VITALS: BP 117/71
[2016-10-26] MEDS: FLUTICASONE NASAL SPRAY 16GM NAS SCH (09:00)
[2016-10-26] MEDS: ADVAIR INH SCH ×2 (09:00→21:00)
[2016-10-26] MEDS: OMEPRAZOLE 20 MG CAPSULE.DR PO SCH (09:18)
[2016-10-26] MEDS: METOPROLOL TARTRATE 50 MG TABLET PO SCH ×2 (09:18→21:16)
[2016-10-26] MEDS: FERROUS SULFATE 325 MG TABLET PO SCH ×2 (09:18→21:16)
[2016-10-26] MEDS: TAMSULOSIN 0.4 MG CAP.ER.24H PO SCH (09:18)
[2016-10-26] MEDS: PAROXETINE 10 MG TABLET PO SCH (09:18)
[2016-10-26] MEDS: TERAZOSIN 1MG CAPSULE PO SCH (09:18)
[2016-10-26] MEDS: ERGOCALCIFEROL 50,000 UNIT CAPSULE PO SCH (09:18)
[2016-10-26] MEDS: DILTIAZEM 30 MG TABLET PO SCH ×3 (09:19→21:16)
[2016-10-26] MEDS: DIPHENOXYLATE/ATROPINE TABLET PO PRN (09:34)
[2016-10-26] MEDS: ALBUTEROL/IPRATROPIUM 2.5MG/0.5MG, 3 ML NPPB SCH ×3 (10:20→19:24)
[2016-10-26] MEDS: WINE PO SCH ×2 (12:00→17:00)
[2016-10-26 15:00] VITALS: BP 94/56
[2016-10-26 19:17] VITALS: BP 113/74
[2016-10-27] MEDS: HEPARIN 5,000 UNITS/ML, 1ML SQ SCH ×3 (01:00→21:30)
[2016-10-27 02:00] VITALS: BP 118/76
[2016-10-27 04:53] LABS: BLOOD UREA NITROGEN 17 mg/dL (7-18)
[2016-10-27] MEDS: ASPIRIN 325 MG TABLET PO SCH (05:25)
[2016-10-27 07:45] VITALS: BP 124/70
[2016-10-27] MEDS: ALBUTEROL/IPRATROPIUM 2.5MG/0.5MG, 3 ML NPPB SCH ×4 (07:51→19:57)
[2016-10-27] MEDS: FLUTICASONE NASAL SPRAY 16GM NAS SCH (09:00)
[2016-10-27] MEDS: DILTIAZEM 30 MG TABLET PO SCH ×3 (09:00→21:30)
[2016-10-27] MEDS: FERROUS SULFATE 325 MG TABLET PO SCH ×2 (09:00→21:29)
[2016-10-27] MEDS: TAMSULOSIN 0.4 MG CAP.ER.24H PO SCH (09:00)
[2016-10-27] MEDS: PAROXETINE 10 MG TABLET PO SCH (09:00)
[2016-10-27] MEDS: ADVAIR INH SCH ×2 (09:00→21:00)
[2016-10-27] MEDS: TERAZOSIN 1MG CAPSULE PO SCH (09:00)
[2016-10-27] MEDS: OMEPRAZOLE 20 MG CAPSULE.DR PO SCH (09:00)
[2016-10-27] MEDS: METOPROLOL TARTRATE 50 MG TABLET PO SCH ×2 (09:00→21:29)
[2016-10-27] MEDS: WINE PO SCH ×2 (12:00→17:00)
[2016-10-27 14:25] VITALS: BP 109/73
[2016-10-27 19:27] VITALS: BP 116/74
[2016-10-27] MEDS ORDERED: LORazepam 2 MG/ML, 1ML IV PRN ×4 (19:30)
[2016-10-27] MEDS: DIAZEPAM 2 MG TABLET PO PRN (23:19)
[2016-10-28 04:07] VITALS: BP 137/77
[2016-10-28 04:48] LABS: HEMATOCRIT 27.4 % (34.6-47.8); HEMOGLOBIN 8.7 g/dL (11.7-16.4); WHITE BLOOD COUNT 6.6 x10^3/uL (3.4-10)
[2016-10-28 04:57] LABS: BLOOD UREA NITROGEN 10 mg/dL (7-18)
[2016-10-28] MEDS: ASPIRIN 325 MG TABLET PO SCH (05:29)
[2016-10-28] MEDS: HEPARIN 5,000 UNITS/ML, 1ML SQ SCH ×3 (05:30→20:29)
[2016-10-28] MEDS: ALBUTEROL/IPRATROPIUM 2.5MG/0.5MG, 3 ML NPPB SCH ×4 (07:00→19:50)
[2016-10-28 09:05] VITALS: BP 144/69
[2016-10-28] MEDS: DIAZEPAM 2 MG TABLET PO PRN (09:15)
[2016-10-28] MEDS: ADVAIR INH SCH ×2 (09:31→21:00)
[2016-10-28] MEDS: FLUTICASONE NASAL SPRAY 16GM NAS SCH (09:34)
[2016-10-28] MEDS: METOPROLOL TARTRATE 50 MG TABLET PO SCH ×2 (09:37→20:29)
[2016-10-28] MEDS: TAMSULOSIN 0.4 MG CAP.ER.24H PO SCH (09:37)
[2016-10-28] MEDS: DILTIAZEM 30 MG TABLET PO SCH ×3 (09:38→20:28)
[2016-10-28] MEDS: TERAZOSIN 1MG CAPSULE PO SCH (09:38)
[2016-10-28] MEDS: FERROUS SULFATE 325 MG TABLET PO SCH ×2 (09:38→20:28)
[2016-10-28] MEDS: OMEPRAZOLE 20 MG CAPSULE.DR PO SCH (09:38)
[2016-10-28] MEDS: PAROXETINE 10 MG TABLET PO SCH (09:38)
[2016-10-28] MEDS: WINE PO SCH ×2 (12:00→17:00)
[2016-10-28 14:00] VITALS: BP 107/73
[2016-10-28] MEDS: LORazepam 2 MG/ML, 1ML IV PRN (23:51)
[2016-10-29] MEDS: ALBUTEROL/IPRATROPIUM 2.5MG/0.5MG, 3 ML NPPB PRN ×2 (00:10→03:05)
[2016-10-29 01:40] VITALS: BP 125/67
[2016-10-29] MEDS: LORazepam 2 MG/ML, 1ML IV PRN (02:32)
[2016-10-29 05:10] LABS: ASPARTATE AMINO TRANSFERASE 10 U/L (15-37); BLOOD UREA NITROGEN 14 mg/dL (7-18); HEMATOCRIT 28.9 % (34.6-47.8)
[2016-10-29] MEDS: HEPARIN 5,000 UNITS/ML, 1ML SQ SCH ×2 (05:30→13:30)
[2016-10-29] MEDS: ASPIRIN 325 MG TABLET PO SCH (06:00)
[2016-10-29] MEDS: ALBUTEROL/IPRATROPIUM 2.5MG/0.5MG, 3 ML NPPB SCH ×2 (07:02→10:28)
[2016-10-29] MEDS: TAMSULOSIN 0.4 MG CAP.ER.24H PO SCH (09:00)
[2016-10-29] MEDS: METOPROLOL TARTRATE 50 MG TABLET PO SCH (09:00)
[2016-10-29] MEDS: DILTIAZEM 30 MG TABLET PO SCH (09:00)
[2016-10-29] MEDS: FLUTICASONE NASAL SPRAY 16GM NAS SCH (09:00)
[2016-10-29] MEDS: TERAZOSIN 1MG CAPSULE PO SCH (09:00)
[2016-10-29] MEDS: ADVAIR INH SCH (09:00)
[2016-10-29] MEDS: PAROXETINE 10 MG TABLET PO SCH (09:00)
[2016-10-29 10:06] VITALS: BP 90/60
[2016-10-29] MEDS ORDERED: ATROPINE OPHTH SOLN 1%, 5ML BC PRN (15:00)
[2016-10-29] MEDS ORDERED: LORazepam 2 MG/ML, 1ML IVPush PRN ×2 (15:00→18:30)
[2016-10-29] MEDS ORDERED: SCOPOLAMINE PATCH, 1.5MG PATCH.TD72 TD SCH (16:00)
[2016-10-29] MEDS: ATROPINE OPHTH SOLN 1%, 2ML BC PRN ×3 (17:26→19:36)
[2016-10-29] MEDS ORDERED: MORPHINE SULFATE 4 MG/ML, 1ML IVPush PRN (18:30)
== END 2016-10-29 23:53 | disposition expired | DRG 682 ==
LOC: ED 18:19 → EDIP 18:36 → 4EST 20:16 → 4WST 10-18 21:28 → 3NW 10-29 14:15
PROVIDERS: ADMIT Internal Medicine; ATTEND Internal Medicine
PROC: 02HV33Z Insertion of Infusion Device into Superior Vena Cava, Percutaneous Approach (ICD-10-PCS; principal; 2016-10-25)
PROC: B5181ZA Fluoroscopy of Superior Vena Cava using Low Osmolar Contrast, Guidance (ICD-10-PCS; 2016-10-25)
PROC: 5A1D60Z (ICD-10-PCS; 2016-10-27)
DX: N17.0 Acute kidney failure with tubular necrosis (principal); J96.21 Acute and chronic respiratory failure with hypoxia; G93.40 Encephalopathy, unspecified; I50.33 Acute on chronic diastolic (congestive) heart failure; Z99.11 Dependence on respirator [ventilator] status; D68.69 Other thrombophilia; E87.5 Hyperkalemia; I13.0 Hypertensive heart and chronic kidney disease with heart failure and stage 1 through stage 4 chronic kidney disease, or unspecified chronic kidney disease; D70.9 Neutropenia, unspecified; E66.01 Morbid (severe) obesity due to excess calories; D50.9 Iron deficiency anemia, unspecified; D63.8 Anemia in other chronic diseases classified elsewhere; E55.9 Vitamin D deficiency, unspecified; Z68.35 Body mass index [BMI] 35.0-35.9, adult; E78.00 Pure hypercholesterolemia, unspecified; F32.9 Major depressive disorder, single episode, unspecified; F41.0 Panic disorder [episodic paroxysmal anxiety]; G47.33 Obstructive sleep apnea (adult) (pediatric); I25.10 Atherosclerotic heart disease of native coronary artery without angina pectoris; I25.2 Old myocardial infarction; I48.0 Paroxysmal atrial fibrillation; I71.4 Abdominal aortic aneurysm, without rupture; I73.9 Peripheral vascular disease, unspecified; K58.9 Irritable bowel syndrome, unspecified; N18.9 Chronic kidney disease, unspecified; T37.0X5A Adverse effect of sulfonamides, initial encounter; Z51.5 Encounter for palliative care; Z66 Do not resuscitate; Z72.0 Tobacco use; Z79.82 Long term (current) use of aspirin; Z79.899 Other long term (current) drug therapy; Z80.1 Family history of malignant neoplasm of trachea, bronchus and lung; Z86.73 Personal history of transient ischemic attack (TIA), and cerebral infarction without residual deficits; Z87.01 Personal history of pneumonia (recurrent); Z90.49 Acquired absence of other specified parts of digestive tract; Z99.81 Dependence on supplemental oxygen
CPT/HCPCS: 36415; 36556; 71010; 76937; 77001; 80048; 80053; 80069; 81001; 82272; 82306; 82330; 82570; 82607; 82728; 82746; 82962; 83540; 83550; 83735; 83970; 84100; 84155; 84156; 84165; 84166; 84484; 85025; 85045; 85610; 85730; 86038; 86706; 87086; 87340; 87536; 93005; 94640; 96374; 96375; J0610; J1644; J1940; J7620; P9047; C1751; J1642; J2060; J2270; J3475; J7030